=== PATIENT | female | born 1935 | race Caucasian/White ===

== ENCOUNTER 2017-04-22 10:52 | Inpatient (IN) | payer OTHER, MEDICARE ==
[~2017-04-22] VITALS: Ht 167.6 cm; Wt 89.5 kg
[~2017-04-22 10:52] MED LIST: ACET-1138 PO; AMLO-114 PO; ASPEC325 PO; BISO10TA4 PO; CALC0.2510 PO; CALCIUM PO; CHOL1000 PO; FLUO20CA37 PO; FRRG PO; LEVO75TA5 PO; LORA-741 PO; MAGNESIUM CALCIUM PO; MONT1TAB3 PO; NMN10 PO; PRLSR20 PO; ROSU5TAB PO; TRAM-10 PO; [UNRECOGNIZED DRUG - CODE] PO
[2017-04-22] MEDS ORDERED: ACETAMINOPHEN 500 MG TAB PO STA (11:10)
--- NOTE | 2017-04-22 11:13 | EMERGENCY ROOM VISIT NOTE ---
History Report prepared by William: Manny Torres Under the Supervision of: Dr. Sunny Muro M.D. First contact with patient: 10:59 Stated Complaint: GENERAL ILLNESS History of Present Illness The patient is a 81 year old female who presents to the Emergency Room with complaints of generalized weakness that began two days ago. She has a past medical history of asthma, CKD, hypertension, COPD, and GERD. She denies any history of atrial fibrillation or flutter. Over the past couple of days, the patient has been feeling generally weak. She is also experiencing a fever with a mild cough. She denies any chest pain, shortness of breath, or abdominal pain. Her family states that she seems to be mildly confused and is not quite herself. Source of History: patient Onset: two days ago Position: other (Global) Symptom Intensity: moderate Quality: other (generalized weakness) Timing: constant Associated Symptoms: + fevers, + cough, No chest pain, No SOB, No abdominal pain Review of Systems See HPI for pertinent positives & negatives. A total of 10 systems reviewed and were otherwise negative. 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 (11) Localized, primary osteoarthritis of the pelvic region and thigh Surgical Problems: (1) History of bladder surgery (2) S/P appendectomy (3) S/P cataract surgery (4) S/P laminectomy (5) S/P RAMYA (total abdominal hysterectomy) (6) S/P tonsillectomy (7) Status post hysterectomy (8) Total replacement of hip Family History Cancer FATHER BROTHER Diabetes mellitus FH: heart disease MOTHER Hypertension Social History Smoking Status: Former Smoker Alcohol Use: none Drug Use: none Marital Status: Housing Status: assisted living Occupation Status: retired Current/Historical Medications Scheduled Amlodipine (Norvasc), 2.5 MG PO DAILY Bisoprolol Fumarate (Bisoprolol Fumarate), 10 MG PO QAM Calcitriol (Rocaltrol Cap), 0.25 MCG PO DAILY Calcium Carbonate (Tums), 500 MG PO DAILY Cholecalciferol (Vitamin D3), 5,000 UNITS PO DAILY Ferrous Sulfate (Ferrous Sulfate), 325 MG PO BID Fluoxetine Hcl (Prozac), 40 MG PO QAM Levothyroxine Sodium (Levothyroxine Sodium), 1 TAB PO DAILY Magnesium Chloride-Calcium Car (Slow-Mag), 1 TAB PO DAILY Memantine (Namenda), 10 MG PO BID Montelukast Sodium (Singulair), 10 MG PO QAM Omeprazole (Prilosec), 20 MG PO QAM Rivastigmine Tartrate (Exelon), 3 MG PO BID Rosuvastatin Calcium (Crestor), 5 MG PO QPM Scheduled PRN Clonazepam (Klonopin), 0.5 MG PO BID PRN for Anxiety Allergies Coded Allergies: Latex1 -Allergic Contact Dermititis (Verified Allergy, Mild, RASH, 04/22/17 ) Donepezil (Verified Allergy, Unknown, NIGHTMARES, 04/22/17) NSAIDs (Unverified Allergy, Unknown, NOT TO TAKE DUE TO KIDNEY CHANGES, ) Physical Exam Vital Signs Date Time Temp Pulse Resp B/P (MAP) Pulse Ox O2 Delivery O2 Flow Rate FiO2 04/22/17 12:52 37.9 75 18 127/68 92 Room Air 04/22/17 11:59 38.8 80 18 157/77 92 Room Air 04/22/17 11:11 92 Room Air 04/22/17 11:05 83 04/22/17 11:04 38.2 82 18 165/78 92 Room Air Physical Exam GENERAL: Patient is a healthy-appearing well-nourished female HEAD: Normocephalic atraumatic EYES: Ocular movements intact pupils equal and react to light OROPHARYNX mucous membranes are moist no exudates present no erythema or edema present NECK: Supple no nuchal rigidity CHEST: Good equal expansion LUNGS: Clear and equal to auscultation CARDIAC: Normal S1 and S2 ABDOMEN: Soft nontender no guarding BACK: No CVA tenderness EXTREMITIES: No pain upon palpation normal muscle strength in all groups no clubbing cyanosis or edema NEURO: Patient is following commands and answering questions appropriately. Alert and oriented x3 Cranial Nerves 2-12 grossly intact Medical Decision & Procedures ER Provider Diagnostic Interpretation: Radiology results as stated below per my review and radiologist interpretation: CHEST ONE VIEW PORTABLE HISTORY: 81 years-old Female Sepsis acute sepsis COMPARISON: Chest radiograph 04/01/2016 TECHNIQUE: Portable AP view of the chest FINDINGS: Cardiomediastinal and hilar silhouettes are within normal limits. Atherosclerosis of the aorta. No pneumothorax, pleural effusion, focal airspace consolidation or overt pulmonary edema. Bones of the chest appear grossly intact. Multilevel endplate spurring of the spine. IMPRESSION: No acute process. The above report was generated using voice recognition software. It may contain grammatical, syntax or spelling errors. Electronically signed by: Sal Mcmahon M.D. 04/22/2017 12:36 PM Dictated Date/Time: 04/22/2017 12:35 PM Laboratory Results Test 04/22/17 11:16 04/22/17 11:46 04/22/17 11:53 04/22/17 11:56 Influenza Type A Antigen Neg for Influ A (NEG) Influenza Type B Antigen Neg for Influ B (NEG) Prothrombin Time 10.3 SECONDS (9.0-12.0) Prothromb Time International Ratio 1.0 (0.9-1.1) Activated Partial Thromboplast Time 31.3 SECONDS (21.0-31.0) Partial Thromboplastin Ratio 1.2 Total Bilirubin 0.6 mg/dl (0.2-1) Aspartate Amino Transf (AST/SGOT) 11 U/L (15-37) Alanine Aminotransferase (ALT/SGPT) 13 U/L (12-78) Alkaline Phosphatase 119 U/L (45-117) Total Creatine Kinase 99 U/L (26-192) Creatine Kinase MB 0.8 ng/ml (0.5-3.6) Creatine Kinase MB Ratio 0.8 (0-3.0) Troponin I < 0.015 ng/ml (0-0.045) Total Protein 7.4 gm/dl (6.4-8.2) Albumin 3.4 gm/dl (3.4-5.0) Globulin 4.0 gm/dl (2.5-4.0) Albumin/Globulin Ratio 0.9 (0.9-2) Bedside Lactic Acid Venous 1.08 mmol/L (0.90-1.70) Urine Color DK YELLOW Urine Appearance CLEAR (CLEAR) Urine pH 6.5 (4.5-7.5) Urine Specific [place] 1.024 (1.000-1.030) Urine Protein TRACE (NEG) Urine Glucose (UA) NEG (NEG) Urine Ketones TRACE (NEG) Urine Occult Blood TRACE (NEG) Urine Nitrite NEG (NEG) Urine Bilirubin NEG (NEG) Urine Urobilinogen NEG (NEG) Urine Leukocyte Esterase NEG (NEG) Urine WBC (Auto) 1-5 /hpf (0-5) Urine RBC (Auto) 5-10 /hpf (0-4) Urine Hyaline Casts (Auto) 1-5 /lpf (0-5) Urine Epithelial Cells (Auto) >30 /lpf (0-5) Urine Bacteria (Auto) NEG (NEG) Labs reviewed by ED physician. Medications Administered Medications (Trade) Dose Ordered Sig/Zunilda Route Start Time Stop Time Status Last Admin Dose Admin Acetaminophen (Tylenol Tab) 1,000 mg NOW STAT PO 04/22/17 11:10 04/22/17 11:12 DC 04/22/17 11:16 1,000 MG Cefepime HCl 2000 mg/Dextrose 122 ml @ 200 mls/hr NOW STAT IV 04/22/17 12:33 04/22/17 13:09 DC 04/22/17 13:04 200 MLS/HR Levofloxacin (Levaquin / D5W) 750 mg NOW STAT IV 04/22/17 12:33 04/22/17 12:49 DC 04/22/17 13:05 750 MG Sodium Chloride 500 ml @ 999 mls/hr Q31M STAT IV 04/22/17 12:33 04/22/17 13:03 DC 04/22/17 13:04 999 MLS/HR Oseltamivir Phosphate (Tamiflu Cap) 75 mg NOW STAT PO 04/22/17 13:05 04/22/17 13:06 DC 04/22/17 14:53 75 MG Aspirin (Aspirin Chew) 324 mg NOW STAT PO 04/22/17 13:13 04/22/17 13:14 DC 04/22/17 14:53 324 MG Acetaminophen (Tylenol Tab) 650 mg Q4H PRN PO 04/22/17 13:30 05/22/17 13:29 04/23/17 04:03 650 MG ECG Indication: weakness Rate (beats per minute): 83 Rhythm: atrial flutter, other (4 to 1 conduction) Findings: no acute ischemic change Comparison ECG Date: 02/14/16 Change: Atrial flutter is new. 2nd ECG: NSR 82, no ischemic changes or ectopy. Compared to the first ECG, her atrial flutter has resolved to normal sinus rhythm. ED Course 1059: Past medical records reviewed. The patient was evaluated in room C9. A complete history and physical examination was performed. 1110: Ordered Tylenol Tab 1000 mg PO 1233: Ordered Sodium Chloride 500 ml @ 999 mls/hr IV, Levofloxacin 750 mg IV, Cefepime HCl 2000 mg/Dextrose 122 ml @ 200 mls/hr IV 1304: Upon reexamination the patient is resting. I discussed results and treatment plan with the patient. She verbalizes agreement and understanding. I spoke with Dr. Carrizales from the [facility] Hospitalist Service. The patient will be evaluated for further management. 1305: Ordered Tamiflu Cap 75 mg PO Medical Decision Differential diagnosis: Etiologies such as metabolic, infection, hypo/hyperglycemia, electrolyte abnormalities, cardiac sources, intracerebral event, toxicologic, neurologic, as well as others were entertained. This is a 81-year-old female who presents to the emergency department complaining of altered mental status and fevers at home. In addition the patient appears to be a new onset atrial fibrillation however quickly referred back to a normal sinus rhythm. She is positive for the flu. She was given Tylenol here in the emergency department. The patient is generally weak and I do not feel will be a good candidate to be discharged home. For this reason I did discuss the case with the hospitalist service who agreed to admit the patient. Patient was in agreement with the treatment plan. Medication Reconcilliation Current Medication List: was personally reviewed by me Blood Pressure Screening Patient's blood pressure: Elevated blood pressure Referred to the hospitalist Consults Time Called: 1300 Consulting Physician: Dr. Carrizales - [facility] Hospitalist Returned Call: 1304 I discussed the patient's case with Dr. Carrizales, they have agreed to evaluate the patient for further management and care. Impression Primary Impression: Fever Additional Impressions: Altered mental status URI (upper respiratory infection) Scribe Attestation The scribe's documentation has been prepared under my direction and personally reviewed by me in its entirety. I confirm that the note above accurately reflects all work, treatment, procedures, and medical decision making performed by me. Departure Information Dispostion Being Evaluated By Hospitalist Prescriptions Cholecalciferol (VITAMIN D3) 5,000 Unit Cap 5000 UNITS PO DAILY, #30 Prov: Stefan Carrizales MD 04/22/17 Calcium Carbonate (Tums) 500 Mg Chew 500 MG PO DAILY, #30 Prov: Stefan Carrizales MD 04/22/17 Ferrous Sulfate (Ferrous Sulfate) 325 Mg Tab 325 MG PO BID, #60 Prov: Stefan Carrizales MD 04/22/17 Levothyroxine Sodium (LEVOTHYROXINE SODIUM) 75 Mcg Tab 1 TAB PO DAILY for 30 Days, #30 TAB 5 Refills Prov: Stefan Carrizales MD 04/22/17 Referrals Santi Floyd D.O. (PCP) Problem Qualifiers Primary Impression: Fever Fever type: unspecified Qualified Codes: R50.9 - Fever, unspecified Additional Impressions: Altered mental status Altered mental status type: unspecified Qualified Codes: R41.82 - Altered mental status, unspecified URI (upper respiratory infection) URI type: unspecified viral URI Qualified Codes: J06.9 - Acute upper respiratory infection, unspecified
[2017-04-22] MEDS ORDERED: AMLO-110 PO (11:52)
[2017-04-22] MEDS ORDERED: RIVA3CAP4 PO (11:52)
[2017-04-22] MEDS ORDERED: MAGNTAB17 PO (11:53)
[2017-04-22] MEDS ORDERED: CLON0.5T3 PO (11:53)
[2017-04-22 11:59] LABS: BASO % 0.3 %; BASO ABS # 0.03 K/uL (0-0.2); EOS % 0.9 %; EOS ABS # 0.09 K/uL (0-0.5); HEMATOCRIT 39.2 % (37-47); HEMOGLOBIN 12.7 g/dL (12.0-16.0); IG# 0.03 K/uL (0.00-0.02); LYMPH % 6.7 %; MEAN CORPUSCULAR HEMOGLOBIN 27.5 pg (25-34); MEAN CORPUSCULAR HGB CONC 32.4 g/dl (32-36); MEAN PLATELET VOLUME 10.2 fL (7.4-10.4); MONO ABS # 0.94 K/uL (0.11-0.59); NEUT % 82.8 %; NEUT ABS # 8.65 K/uL (1.4-6.5); PLATELET COUNT 251 K/uL (130-400); RED CELL DISTRIBUTION WIDTH CV 16.1 % (11.5-14.5); RED CELL DISTRIBUTION WIDTH SD 50.1 fL (36.4-46.3); WHITE BLOOD COUNT 10.44 K/uL (4.8-10.8)
[2017-04-22 12:08] LABS: INFLUENZA B ANTIGEN Neg for Influ B (NEG)
[2017-04-22 12:10] LABS: PTT PATIENT 31.3 SECONDS (21.0-31.0)
[2017-04-22 12:22] LABS: ALBUMIN 3.4 gm/dl (3.4-5.0); ALT/SGPT 13 U/L (12-78); AST/SGOT 11 U/L (15-37); BLOOD UREA NITROGEN 13 mg/dl (7-18); CALCIUM 9.2 mg/dl (8.5-10.1); CARBON DIOXIDE 29 mmol/L (21-32); CREATININE 1.13 mg/dl (0.60-1.20); GLUCOSE 90 mg/dl (70-99); POTASSIUM 3.8 mmol/L (3.5-5.1); SODIUM 137 mmol/L (136-145)
[2017-04-22 12:27] LABS: ALKALINE PHOSPHATASE 119 U/L (45-117); CKMB 0.8 ng/ml (0.5-3.6); TOTAL PROTEIN 7.4 gm/dl (6.4-8.2)
[2017-04-22] MEDS ORDERED: VANCOMYCIN 1GM/270ML NSS IV STA (12:33)
[2017-04-22] MEDS ORDERED: LEVAQUIN 750MG / 150ML D5W IV STA (12:33)
[2017-04-22] MEDS ORDERED: CEFEPIME IV 2,000 MG in DEXTROSE 5% 100ML 100 ML IV STA (12:33)
[2017-04-22] MEDS ORDERED: SODIUM CHLORIDE 0.9% 500ML 500 ML IV STA (12:33)
--- NOTE | 2017-04-22 12:37 | DIAGNOSTIC IMAGING REPORT ---
CHEST ONE VIEW PORTABLE HISTORY: 81 years-old Female Sepsis acute sepsis COMPARISON: Chest radiograph 04/01/2016 TECHNIQUE: Portable AP view of the chest FINDINGS: Cardiomediastinal and hilar silhouettes are within normal limits. Atherosclerosis of the aorta. No pneumothorax, pleural effusion, focal airspace consolidation or overt pulmonary edema. Bones of the chest appear grossly intact. Multilevel endplate spurring of the spine. IMPRESSION: No acute process. The above report was generated using voice recognition software. It may contain grammatical, syntax or spelling errors. Electronically signed by: Sal Mcmahon M.D. 04/22/2017 12:36 PM Dictated Date/Time: 04/22/2017 12:35 PM
[2017-04-22] MEDS ORDERED: OSELTAMIVIR PHOSPHATE 75 MG CAP PO STA (13:05)
[2017-04-22] MEDS ORDERED: ASPIRIN 81 MG CHEW PO STA (13:13)
[2017-04-22] MEDS ORDERED: ALUMINUM/MAGNESIUM/SIMETH (MAALOX MAX) 30 ML UDC PO PRN (13:30)
[2017-04-22] MEDS ORDERED: CLONAZEPAM 0.5 MG TAB PO PRN (13:30)
[2017-04-22] MEDS ORDERED: ACETAMINOPHEN 325 MG TAB PO PRN (13:30)
[2017-04-22] MEDS ORDERED: ONDANSETRON INJ 2 MG/ML 2 ML VIAL IV PRN (13:30)
[2017-04-22] MEDS ORDERED: LEVALBUTEROL/IPRATROPIUM NEB INH PRN (13:30)
[2017-04-22] MEDS ORDERED: POLYETHYLENE (MIRALAX) 17 GM PACK PO PRN (13:30)
[2017-04-22] MEDS ORDERED: NITROGLYCERIN 0.4 MG SL PER TAB CHARGE SL PRN (13:30)
[2017-04-22] MEDS ORDERED: FRRS300 PO (13:47)
[2017-04-22] MEDS ORDERED: CHOLCAP5 PO (13:47)
[2017-04-22] MEDS ORDERED: LEVO75TA5 PO (13:47)
[2017-04-22] MEDS ORDERED: CALC500C3 PO (13:47)
[2017-04-22] MEDS ORDERED: IPRATROPIUM BROMIDE NEB SOLN 0.02% 2.5 ML VIAL INH PRN (15:15)
[2017-04-22] MEDS ORDERED: LEVALBUTEROL 1.25MG/0.5ML NEB INH PRN (15:15)
[2017-04-22] MEDS ORDERED: VANCOMYCIN 1GM/270ML NSS ONE (15:16)
[2017-04-22 15:36] VITALS: BP 157/77; PULSE 72; TEMP 37.1; O2SAT 97; Ht 167.6 cm; Wt 89.5 kg
[2017-04-22] MEDS ORDERED: LEVOFLOXACIN CONSULT ACTIVE PRN (16:00)
--- NOTE | 2017-04-22 16:41 | HISTORY & PHYSICAL EXAMINATION ---
DATE OF ADMISSION: 04/22/2017 CHIEF COMPLAINT: Not feeling well, fever and cough. HISTORY OF PRESENT ILLNESS: This 81-year-old female with a past medical history significant for hypothyroidism, restless legs syndrome, COPD, dementia, anxiety, chronic kidney disease stage III, generalized osteoarthritis, hypertension, GERD, hyperlipidemia, and hyperparathyroidism due to renal insufficiency, presents with fever starting last night. The patient says since last night not feeling well, generalized body aches and had fever spike and was having dry cough. In the ER, she has episode of vomiting. Denies any shortness of breath, has some headaches. Denies dizziness, no blurred vision, no abdominal pain. Normal bowel and bladder movements. Appetite is not good since yesterday. No swelling in the legs. No rash. The patient says she is up-to-date with her flu shot. Currently resting comfortably and hemodynamically stable. ALLERGIES: ARICEPT AND NSAIDs, Latex PAST MEDICAL HISTORY: As mentioned above. PAST SURGICAL HISTORY: Biopsy of the left breast, EGD with biopsy, exploration of the abdomen for adnexal mass, single lumbar laminectomy, ligation of oviducts, appendectomy, left cataract surgery, tonsillectomy, adenoidectomy, repair of bladder and ureters, sacroiliac joint injection, total abdominal hysterectomy without removal of tubes, and total hip replacements bilateral. MEDICATIONS: The patient currently on Crestor 5 mg p.o. daily in the evening, Prozac 40 mg p.o. daily, omeprazole 20 mg p.o. daily, Klonopin 0.5 mg p.o. b.i.d. p.r.n., Namenda 10 mg p.o. b.i.d., levothyroxine 75 mcg p.o. daily, calcitriol 0.25 mcg p.o. daily, Singulair 10 mg p.o. daily, bisoprolol 10 mg p.o. daily, Exelon 3 mg p.o. b.i.d., amlodipine 2.5 mg p.o. daily, ferrous sulfate 325 mg p.o. b.i.d., calcium carbonate 600 mg p.o. daily, magnesium chloride 64 mg p.o. daily, and vitamin D 5000 units p.o. daily. FAMILY HISTORY: Significant for father had liver cancer. Mother of [place] at age of 77. Brother had leukemia. SOCIAL HISTORY: Former smoker, quit in 1997, smoked 1 pack a day for 20 years. No alcohol use. No drug use. Currently lives with her . REVIEW OF SYMPTOMS: As per HPI. Rest of review of symptoms negative. PHYSICAL EXAMINATION: GENERAL: The patient is of moderate-built, not in distress. VITAL SIGNS: Temperature T-max 38.8, pulse 75, respiratory rate 18, blood pressure 127/68, and oxygen 92% room air. HEENT: No pallor. No icterus. Pupils equal, round and reactive to light. NECK: No JVD, no neck masses, and no carotid bruits. CARDIOVASCULAR: S1 and S2 heard. Regular rate and rhythm. No murmur. No gallop. RESPIRATORY: Normal AP diameter. No accessory muscle use. Occasional rhonchi heard in the right lower lobe. No wheezing. ABDOMEN: Soft. Bowel sounds present. Nontender. No distention. CENTRAL NERVOUS SYSTEM: Cranial nerves II-XII grossly intact. Nonfocal. EXTREMITIES: No edema. No erythema. LABORATORY DATA: WBC 10.4, hemoglobin 12.7, hematocrit 10.2, and platelets 251. Sodium 137, potassium 3.8, chloride 102, bicarb 29, BUN 13, and creatinine 1.13. Serum glucose 90. Point of care lactic acid 1.08. Calcium 9.2, total bilirubin 0.6, AST 11, ALT 13, and alkaline phosphatase 119. Troponin I less than 0.015. PT 10.3, INR 1, and PTT 31.3. Urinalysis negative for nitrite, leukocyte esterase, or bacteria. Influenza type A and B initial test negative. Chest x-ray: No acute process seen. EKG shows normal sinus rhythm with rate of [address] changes seen. ASSESSMENT AND PLAN: This is a 81-year-old female who presents with acute onset of fever, cough and generalized weakness. 1. Fever, cough, generalized weakness and episode of vomiting, most likely flu. Initial flu test is negative. Chest x-ray unremarkable. Urinalysis negative. We will follow the blood cultures. In the ER, the patient empirically received cefepime, Levaquin, vancomycin and Tamiflu. We will continue Tamiflu and Levaquin and follow the cultures and place on gentle fluids and follow the response. 2. History of chronic obstructive pulmonary disease and asthma, not on inhalers at home. Continue Singulair. The patient does not seem to be in any exacerbation. We will place her on Combivent scheduled dose and nebs p.r.n. and monitor. 3. Chronic kidney disease stage III, seems to be baseline. We will follow the labs. 4. History of hypertension. Continue bisoprolol and amlodipine, and follow the blood pressure. 5. History of dementia. Continue Namenda and Exelon. 6. Depression and anxiety. Continue Prozac and Klonopin p.r.n. 7. Gastroesophageal reflux disease. Continue Prilosec. 8. Hyperlipidemia. Continue Crestor. 9. Deep venous thrombosis prophylaxis. SCDs and Lovenox. DISPOSITION: Admit to tele floor. Expect to discharge home and follow with family doctor. Level 1 full code. PT/OT prior to discharge. MTDD
[2017-04-22] MEDS: SODIUM CHLORIDE 0.9% 1000ML 1,000 ML IV SCH (16:45)
[2017-04-22] MEDS: IPRATROPIUM BROMIDE/ALBUTEROL respimat INH INH SCH ×2 (17:42→20:39)
[2017-04-22 20:29] VITALS: BP 139/79; PULSE 80; TEMP 37.4; O2SAT 97
[2017-04-22] MEDS: ROSUVASTATIN CALCIUM 10 MG TAB PO SCH (20:40)
[2017-04-22] MEDS: RIVASTIGMINE TARTRATE (EXELON) 1.5 MG CAP PO SCH (20:40)
[2017-04-22] MEDS: FERROUS SULFATE 325 MG TAB PO SCH (20:41)
[2017-04-22] MEDS: MEMANTINE 10 MG TAB PO SCH (20:41)
[2017-04-22] MEDS: OSELTAMIVIR PHOSPHATE 75 MG CAP PO SCH (20:41)
[2017-04-22] MEDS: ENOXAPARIN 40 MG/0.4 ML SYR SC SCH (20:42)
[2017-04-22 23:46] VITALS: BP 166/75; PULSE 87; TEMP 37.6; O2SAT 95
[2017-04-23] VITALS (13 sets, daily range): BP systolic 98–169; BP diastolic 60–92; PULSE 69–100; TEMP 36.8–38.5; O2SAT 22–96
[2017-04-23] MEDS: SODIUM CHLORIDE 0.9% 1000ML 1,000 ML IV SCH ×2 (04:03→17:11)
[2017-04-23] MEDS: LEVOTHYROXINE 75 MCG TAB PO SCH (06:06)
[2017-04-23 06:14] LABS: BASO % 0.4 %; BASO ABS # 0.03 K/uL (0-0.2); EOS % 0.5 %; EOS ABS # 0.04 K/uL (0-0.5); HEMATOCRIT 37.3 % (37-47); IG# 0.02 K/uL (0.00-0.02); LYMPH % 12.4 %; LYMPH ABS # 0.91 K/uL (1.2-3.4); MEAN CELL VOLUME 84.6 fL (80-100); MEAN CORPUSCULAR HEMOGLOBIN 27.2 pg (25-34); MEAN CORPUSCULAR HGB CONC 32.2 g/dl (32-36); MONO % 9.8 %; MONO ABS # 0.72 K/uL (0.11-0.59); NEUT % 76.6 %; NEUT ABS # 5.59 K/uL (1.4-6.5); PLATELET COUNT 220 K/uL (130-400); RED CELL DISTRIBUTION WIDTH CV 16.2 % (11.5-14.5); RED CELL DISTRIBUTION WIDTH SD 49.7 fL (36.4-46.3); WHITE BLOOD COUNT 7.31 K/uL (4.8-10.8)
[2017-04-23 06:46] LABS: CALCIUM 8.9 mg/dl (8.5-10.1); CREATININE 0.95 mg/dl (0.60-1.20); POTASSIUM 3.5 mmol/L (3.5-5.1)
[2017-04-23] MEDS: RIVASTIGMINE TARTRATE (EXELON) 1.5 MG CAP PO SCH ×2 (07:45→20:25)
[2017-04-23] MEDS: MEMANTINE 10 MG TAB PO SCH ×2 (07:45→20:24)
[2017-04-23] MEDS: FERROUS SULFATE 325 MG TAB PO SCH ×2 (07:45→20:24)
[2017-04-23] MEDS: PANTOprazole SOD 40 MG TAB PO SCH (07:45)
[2017-04-23] MEDS: FLUOXETINE HCL 20 MG CAP PO SCH (07:45)
[2017-04-23] MEDS: MONTELUKAST SOD 10 MG TAB PO SCH (07:46)
[2017-04-23] MEDS: AMLODIPINE BESYLATE 5 MG TAB PO SCH (07:46)
[2017-04-23] MEDS: MAGNESIUM CHLORIDE 64MG DELAYED REL TAB PO SCH (07:46)
[2017-04-23] MEDS: BISOPROLOL FUMARATE 10 MG TAB PO SCH (07:46)
[2017-04-23] MEDS: CHOLECALCIFEROL 1000 INTER.UNIT TAB PO SCH (07:46)
[2017-04-23] MEDS: CALCITRIOL 0.25 MCG CAP PO SCH (07:46)
[2017-04-23] MEDS: CALCIUM CARBONATE 500 MG CHEWABLE PO SCH (07:47)
[2017-04-23] MEDS: IPRATROPIUM BROMIDE/ALBUTEROL respimat INH INH SCH ×4 (07:47→20:21)
[2017-04-23] MEDS: OSELTAMIVIR PHOSPHATE 75 MG CAP PO SCH ×2 (09:58→20:22)
[2017-04-23] MEDS ORDERED: LEVOFLOXACIN 750MG / D5W IV SCH (14:00)
--- NOTE | 2017-04-23 19:50 | Progress Note ---
Medicine Progress Note Date & Time of Visit: Apr 23, 2017 at 19:50 . Subjective CC: Follow-up visit for fever and cough. HPI: No fever since admission. Persistent cough and mild dyspnea. Cough nonproductive. No chest pain. Feels somewhat confused. ROS: General- no fever, no chills Resp- as noted above in HPI Cardiac- no chest pain, no edema GI- no nausea, no vomiting, no diarrhea - no dysuria, no difficulty voiding . Objective Last 8 Hrs Date Time Temp Pulse Resp B/P (MAP) Pulse Ox O2 Delivery O2 Flow Rate FiO2 04/23/17 17:13 80 133/70 (91) 04/23/17 16:25 71 18 95 Room Air 04/23/17 16:19 37.0 71 22 169/85 (113) 95 Room Air 04/23/17 16:00 95 Room Air 1.0 04/23/17 12:00 Nasal Cannula 1.0 04/23/17 11:53 37.4 69 18 134/69 (90) 95 Physical Exam: General- lying in bed; no acute distress Lungs- scattered rhonchi, diffuse wheezing, no respiratory distress Cardiovascular- RRR, no gallop appreciated, no JVD, no pretibial edema Abdomen- + BS, soft, nontender Extremities- no cyanosis; no calf tenderness Neuro- alert, mild confusion Skin- warm & dry . Laboratory Results: Last 24 Hours Test 04/23/17 05:57 White Blood Count 7.31 K/uL Red Blood Count 4.41 M/uL Hemoglobin 12.0 g/dL Hematocrit 37.3 % Mean Corpuscular Volume 84.6 fL Mean Corpuscular Hemoglobin 27.2 pg Mean Corpuscular Hemoglobin Concent 32.2 g/dl Platelet Count 220 K/uL Mean Platelet Volume 10.0 fL Neutrophils (%) (Auto) 76.6 % Lymphocytes (%) (Auto) 12.4 % Monocytes (%) (Auto) 9.8 % Eosinophils (%) (Auto) 0.5 % Basophils (%) (Auto) 0.4 % Neutrophils # (Auto) 5.59 K/uL Lymphocytes # (Auto) 0.91 K/uL Monocytes # (Auto) 0.72 K/uL Eosinophils # (Auto) 0.04 K/uL Basophils # (Auto) 0.03 K/uL RDW Standard Deviation 49.7 fL RDW Coefficient of Variation 16.2 % Immature Granulocyte % (Auto) 0.3 % Immature Granulocyte # (Auto) 0.02 K/uL Sodium Level 137 mmol/L Potassium Level 3.5 mmol/L Chloride Level 103 mmol/L Carbon Dioxide Level 24 mmol/L Anion Gap 9.0 mmol/L Blood Urea Nitrogen 15 mg/dl Creatinine 0.95 mg/dl Est Creatinine Clear Calc Drug Dose 54.1 ml/min Estimated GFR () 66.0 Estimated GFR (Non- 57.0 BUN/Creatinine Ratio 15.5 Random Glucose 103 mg/dl Calcium Level 8.9 mg/dl Magnesium Level 2.0 mg/dl Assessment & Plan FEVER / COUGH No infiltrates on chest x-ray. Rapid influenza Ag negative, but assay has low sensitivity. Treating for possible influenza with oseltamivir. EXACERBATION COPD Secondary to lower respiratory tract infection. Continue nebs. Consider adding steroids. HYPERTENSION Continue bisoprolol and amlodipine. CKD Follow. GERD Continue PPI. DEMENTIA Continue memantine and rivastigmine. VTE PROPHYLAXIS SQ enoxaparin. Ambulate. DISPOSITION Expected discharge to home. Family Medicine follow-up with Dr. Flynn. . Current Inpatient Medications: Current Inpatient Medications Medications (Trade) Dose Ordered Sig/Zunilda Route Start Time Stop Time Status Last Admin Dose Admin Enoxaparin Sodium (Lovenox Inj) 40 mg HS SC 04/22/17 21:00 05/22/17 20:59 04/22/17 20:42 40 MG Acetaminophen (Tylenol Tab) 650 mg Q4H PRN PO 04/22/17 13:30 05/22/17 13:29 04/23/17 04:03 650 MG Al Hydrox/Mg Hydrox/Simethicone (Maalox Max Susp) 15 ml Q4H PRN PO 04/22/17 13:30 05/22/17 13:29 Ondansetron HCl (Zofran Inj) 4 mg Q6H PRN IV 04/22/17 13:30 05/22/17 13:29 Nitroglycerin (Nitrostat Tab) 0.4 mg UD PRN SL 04/22/17 13:30 05/22/17 13:29 Polyethylene (Miralax Powder Packet) 17 gm DAILY PRN PO 04/22/17 13:30 05/22/17 13:29 04/23/17 15:50 17 GM Amlodipine Besylate (Norvasc Tab) 2.5 mg DAILY PO 04/23/17 09:00 05/23/17 08:59 04/23/17 07:46 2.5 MG Calcitriol (Rocaltrol Cap) 0.25 mcg DAILY PO 04/23/17 09:00 05/23/17 08:59 04/23/17 07:46 0.25 MCG Clonazepam (Klonopin Tab) 0.5 mg BID PRN PO 04/22/17 13:30 05/22/17 13:29 Fluoxetine HCl (Prozac Cap) 40 mg QAM PO 04/23/17 09:00 05/23/17 08:59 04/23/17 07:45 40 MG Memantine (Namenda Tab) 10 mg BID PO 04/22/17 21:00 05/22/17 20:59 04/23/17 07:45 10 MG Montelukast Sodium (Singulair Tab) 10 mg QAM PO 04/23/17 09:00 05/23/17 08:59 04/23/17 07:46 10 MG Rosuvastatin Calcium (Crestor Tab) 5 mg QPM PO 04/22/17 21:00 05/22/17 20:59 04/22/17 20:40 5 MG Bisoprolol Fumarate (Bisoprolol Fumarate) 10 mg QAM PO 04/23/17 09:00 05/23/17 08:59 04/23/17 07:46 10 MG Magnesium Chloride (Slow-Mag Tab) 64 mg DAILY PO 04/23/17 09:00 05/23/17 08:59 04/23/17 07:46 64 MG Pantoprazole Sodium (Protonix Tab) 40 mg QAM PO 04/23/17 09:00 05/23/17 08:59 04/23/17 07:45 40 MG Rivastigmine Tartrate (Exelon Cap) 3 mg BID PO 04/22/17 21:00 05/22/17 20:59 04/23/17 07:45 3 MG Oseltamivir Phosphate (Tamiflu Cap) 75 mg BID PO 04/22/17 21:00 04/27/17 20:59 04/23/17 09:58 75 MG Albuterol/ Ipratropium (Combivent Respimat Inh) 1 puffs QID INH 04/22/17 17:00 05/22/17 16:59 04/23/17 17:11 1 PUFFS Sodium Chloride 1,000 ml @ 80 mls/hr [id number] IV 04/22/17 16:00 05/22/17 15:59 04/23/17 17:11 80 MLS/HR Calcium Carbonate (Tums Chew Tab) 500 mg DAILY PO 04/23/17 09:00 05/23/17 08:59 04/23/17 07:47 500 MG Ferrous Sulfate (Feosol Tab) 325 mg BID PO 04/22/17 21:00 05/22/17 20:59 04/23/17 07:45 325 MG Levothyroxine Sodium (Synthroid Tab) 75 mcg DAILYBB PO 04/23/17 06:00 05/23/17 06:59 04/23/17 06:06 75 MCG Cholecalciferol (Vitamin D Tab) 5,000 inter.unit DAILY PO 04/23/17 09:00 05/23/17 08:59 04/23/17 07:46 5,000 INTER.UNIT Ipratropium [place] (Atrovent 0.02% 0.5MG/2.5ML Neb) 0.5 mg Q4H PRN INH 04/22/17 15:15 05/22/17 15:14 04/23/17 16:24 0.5 MG Levalbuterol (Xopenex 1.25MG/ 0.5ML Neb) 1.25 mg Q4H PRN INH 04/22/17 15:15 05/22/17 15:14 04/23/17 16:24 1.25 MG Levofloxacin (Consult) 1 ea UD PRN N/A 04/22/17 16:00 05/22/17 15:59 Levofloxacin 750 mg/Prmx 150 ml @ 100 mls/hr Q24H IV 04/23/17 14:00 04/29/17 13:59 04/23/17 14:37 100 MLS/HR
[2017-04-23] MEDS: ENOXAPARIN 40 MG/0.4 ML SYR SC SCH (20:23)
[2017-04-23] MEDS: ROSUVASTATIN CALCIUM 10 MG TAB PO SCH (20:23)
[2017-04-24] MEDS: LEVOTHYROXINE 75 MCG TAB PO SCH (06:06)
[2017-04-24] MEDS: SODIUM CHLORIDE 0.9% 1000ML 1,000 ML IV SCH ×2 (06:07→17:39)
[2017-04-24 06:52] VITALS: BP 178/80; PULSE 72; TEMP 37.3; O2SAT 91
[2017-04-24 07:27] LABS: BASO % 0.5 %; BASO ABS # 0.04 K/uL (0-0.2); EOS % 1.7 %; EOS ABS # 0.14 K/uL (0-0.5); HEMOGLOBIN 13.3 g/dL (12.0-16.0); IG# 0.02 K/uL (0.00-0.02); LYMPH % 17.6 %; LYMPH ABS # 1.45 K/uL (1.2-3.4); MEAN CELL VOLUME 86.1 fL (80-100); MEAN CORPUSCULAR HEMOGLOBIN 27.3 pg (25-34); MEAN CORPUSCULAR HGB CONC 31.7 g/dl (32-36); MEAN PLATELET VOLUME 10.4 fL (7.4-10.4); MONO % 13.4 %; MONO ABS # 1.11 K/uL (0.11-0.59); NEUT % 66.6 %; PLATELET COUNT 207 K/uL (130-400); RED CELL DISTRIBUTION WIDTH CV 16.2 % (11.5-14.5); RED CELL DISTRIBUTION WIDTH SD 51.5 fL (36.4-46.3); WHITE BLOOD COUNT 8.26 K/uL (4.8-10.8)
[2017-04-24 07:43] VITALS: BP 157/82; PULSE 77
[2017-04-24] MEDS: IPRATROPIUM BROMIDE/ALBUTEROL respimat INH INH SCH ×4 (07:44→20:51)
[2017-04-24] MEDS: CHOLECALCIFEROL 1000 INTER.UNIT TAB PO SCH (07:44)
[2017-04-24] MEDS: RIVASTIGMINE TARTRATE (EXELON) 1.5 MG CAP PO SCH ×2 (07:45→20:55)
[2017-04-24] MEDS: MAGNESIUM CHLORIDE 64MG DELAYED REL TAB PO SCH (07:45)
[2017-04-24] MEDS: MONTELUKAST SOD 10 MG TAB PO SCH (07:46)
[2017-04-24] MEDS: BISOPROLOL FUMARATE 10 MG TAB PO SCH (07:46)
[2017-04-24] MEDS: CALCIUM CARBONATE 500 MG CHEWABLE PO SCH (07:46)
[2017-04-24] MEDS: AMLODIPINE BESYLATE 5 MG TAB PO SCH (07:46)
[2017-04-24] MEDS: PANTOprazole SOD 40 MG TAB PO SCH (07:47)
[2017-04-24] MEDS: OSELTAMIVIR PHOSPHATE 75 MG CAP PO SCH ×2 (07:47→20:56)
[2017-04-24] MEDS: CALCITRIOL 0.25 MCG CAP PO SCH (07:47)
[2017-04-24] MEDS: FERROUS SULFATE 325 MG TAB PO SCH ×2 (07:48→20:55)
[2017-04-24] MEDS: MEMANTINE 10 MG TAB PO SCH ×2 (07:48→20:56)
[2017-04-24] MEDS: FLUOXETINE HCL 20 MG CAP PO SCH (07:48)
[2017-04-24 07:58] LABS: CALCIUM 9.4 mg/dl (8.5-10.1); CREATININE 0.95 mg/dl (0.60-1.20); POTASSIUM 3.5 mmol/L (3.5-5.1)
[2017-04-24] MEDS ORDERED: LEVOFLOXACIN / D5W 750 MG in PREMIXED IN D5W 150 ML IV SCH (12:00)
[2017-04-24 15:29] VITALS: BP 132/80; PULSE 83; TEMP 37.4; O2SAT 91
--- NOTE | 2017-04-24 20:00 | Progress Note ---
Medicine Progress Note Date & Time of Visit: Apr 24, 2017 at 19:30 . Subjective CC: Follow-up visit for suspected flu. HPI: Afebrile. Persistent nonproductive cough. No SOB. Feels disoriented ROS: General- no fever, no chills Resp- as noted above in HPI Cardiac- no chest pain, no edema GI- no nausea, no vomiting, no diarrhea - no dysuria, no difficulty voiding . Objective Last 8 Hrs Date Time Temp Pulse Resp B/P (MAP) Pulse Ox O2 Delivery O2 Flow Rate FiO2 04/24/17 16:00 Room Air 04/24/17 15:29 37.4 83 16 132/80 (97) 91 Room Air Physical Exam: General- lying in bed; no acute distress Lungs- scattered rhonchi, diffuse moderate wheezing, no respiratory distress Cardiovascular- RRR, no gallop appreciated, no JVD, no pretibial edema Abdomen- + BS, soft, nontender Extremities- no cyanosis; no calf tenderness Neuro- alert, mild confusion (oriented to person and place, unable to state day of week or year) Skin- warm & dry . Laboratory Results: Last 24 Hours Test 04/24/17 07:03 White Blood Count 8.26 K/uL Red Blood Count 4.88 M/uL Hemoglobin 13.3 g/dL Hematocrit 42.0 % Mean Corpuscular Volume 86.1 fL Mean Corpuscular Hemoglobin 27.3 pg Mean Corpuscular Hemoglobin Concent 31.7 g/dl Platelet Count 207 K/uL Mean Platelet Volume 10.4 fL Neutrophils (%) (Auto) 66.6 % Lymphocytes (%) (Auto) 17.6 % Monocytes (%) (Auto) 13.4 % Eosinophils (%) (Auto) 1.7 % Basophils (%) (Auto) 0.5 % Neutrophils # (Auto) 5.50 K/uL Lymphocytes # (Auto) 1.45 K/uL Monocytes # (Auto) 1.11 K/uL Eosinophils # (Auto) 0.14 K/uL Basophils # (Auto) 0.04 K/uL RDW Standard Deviation 51.5 fL RDW Coefficient of Variation 16.2 % Immature Granulocyte % (Auto) 0.2 % Immature Granulocyte # (Auto) 0.02 K/uL Sodium Level 139 mmol/L Potassium Level 3.5 mmol/L Chloride Level 103 mmol/L Carbon Dioxide Level 26 mmol/L Anion Gap 10.0 mmol/L Blood Urea Nitrogen 15 mg/dl Creatinine 0.95 mg/dl Est Creatinine Clear Calc Drug Dose 54.1 ml/min Estimated GFR () 66.0 Estimated GFR (Non- 57.0 BUN/Creatinine Ratio 16.1 Random Glucose 81 mg/dl Calcium Level 9.4 mg/dl Magnesium Level 1.9 mg/dl Assessment & Plan FEVER / COUGH No infiltrates on chest x-ray. Rapid influenza Ag negative, but assay has low sensitivity. Treating for possible influenza with oseltamivir. No apparent indication for other antimicrobial meds at this time. EXACERBATION COPD Secondary to lower respiratory tract infection. Continue nebs. Consider adding steroids. HYPERTENSION Continue bisoprolol and amlodipine. CKD Follow. GERD Continue PPI. DEMENTIA Continue memantine and rivastigmine. VTE PROPHYLAXIS SQ enoxaparin. Ambulate. DISPOSITION Expected discharge to home. Family Medicine follow-up with Dr. Flynn. . Current Inpatient Medications: Current Inpatient Medications Medications (Trade) Dose Ordered Sig/Zunilda Route Start Time Stop Time Status Last Admin Dose Admin Enoxaparin Sodium (Lovenox Inj) 40 mg HS SC 04/22/17 21:00 05/22/17 20:59 04/23/17 20:23 40 MG Acetaminophen (Tylenol Tab) 650 mg Q4H PRN PO 04/22/17 13:30 05/22/17 13:29 04/23/17 04:03 650 MG Al Hydrox/Mg Hydrox/Simethicone (Maalox Max Susp) 15 ml Q4H PRN PO 04/22/17 13:30 05/22/17 13:29 Ondansetron HCl (Zofran Inj) 4 mg Q6H PRN IV 04/22/17 13:30 05/22/17 13:29 Nitroglycerin (Nitrostat Tab) 0.4 mg UD PRN SL 04/22/17 13:30 05/22/17 13:29 Polyethylene (Miralax Powder Packet) 17 gm DAILY PRN PO 04/22/17 13:30 05/22/17 13:29 04/23/17 15:50 17 GM Amlodipine Besylate (Norvasc Tab) 2.5 mg DAILY PO 04/23/17 09:00 05/23/17 08:59 04/24/17 07:46 2.5 MG Calcitriol (Rocaltrol Cap) 0.25 mcg DAILY PO 04/23/17 09:00 05/23/17 08:59 04/24/17 07:47 0.25 MCG Clonazepam (Klonopin Tab) 0.5 mg BID PRN PO 04/22/17 13:30 05/22/17 13:29 04/23/17 23:24 0.5 MG Fluoxetine HCl (Prozac Cap) 40 mg QAM PO 04/23/17 09:00 05/23/17 08:59 04/24/17 07:48 40 MG Memantine (Namenda Tab) 10 mg BID PO 04/22/17 21:00 05/22/17 20:59 04/24/17 07:48 10 MG Montelukast Sodium (Singulair Tab) 10 mg QAM PO 04/23/17 09:00 05/23/17 08:59 04/24/17 07:46 10 MG Rosuvastatin Calcium (Crestor Tab) 5 mg QPM PO 04/22/17 21:00 05/22/17 20:59 04/23/17 20:23 5 MG Bisoprolol Fumarate (Bisoprolol Fumarate) 10 mg QAM PO 04/23/17 09:00 05/23/17 08:59 04/24/17 07:46 10 MG Magnesium Chloride (Slow-Mag Tab) 64 mg DAILY PO 04/23/17 09:00 05/23/17 08:59 04/24/17 07:45 64 MG Pantoprazole Sodium (Protonix Tab) 40 mg QAM PO 04/23/17 09:00 05/23/17 08:59 04/24/17 07:47 40 MG Rivastigmine Tartrate (Exelon Cap) 3 mg BID PO 04/22/17 21:00 05/22/17 20:59 04/24/17 07:45 3 MG Oseltamivir Phosphate (Tamiflu Cap) 75 mg BID PO 04/22/17 21:00 04/27/17 20:59 04/24/17 07:47 75 MG Albuterol/ Ipratropium (Combivent Respimat Inh) 1 puffs QID INH 04/22/17 17:00 05/22/17 16:59 1/18/18 16:55 1 PUFFS Sodium Chloride 1,000 ml @ 80 mls/hr [id number] IV 04/22/17 16:00 05/22/17 15:59 04/24/17 17:39 80 MLS/HR Calcium Carbonate (Tums Chew Tab) 500 mg DAILY PO 04/23/17 09:00 05/23/17 08:59 04/24/17 07:46 500 MG Ferrous Sulfate (Feosol Tab) 325 mg BID PO 04/22/17 21:00 05/22/17 20:59 04/24/17 07:48 325 MG Levothyroxine Sodium (Synthroid Tab) 75 mcg DAILYBB PO 04/23/17 06:00 05/23/17 06:59 04/24/17 06:06 75 MCG Cholecalciferol (Vitamin D Tab) 5,000 inter.unit DAILY PO 04/23/17 09:00 05/23/17 08:59 04/24/17 07:44 5,000 INTER.UNIT Ipratropium [place] (Atrovent 0.02% 0.5MG/2.5ML Neb) 0.5 mg Q4H PRN INH 04/22/17 15:15 05/22/17 15:14 04/23/17 16:24 0.5 MG Levalbuterol (Xopenex 1.25MG/ 0.5ML Neb) 1.25 mg Q4H PRN INH 04/22/17 15:15 05/22/17 15:14 04/23/17 16:24 1.25 MG
[2017-04-24] MEDS: ROSUVASTATIN CALCIUM 10 MG TAB PO SCH (20:52)
[2017-04-24] MEDS: ENOXAPARIN 40 MG/0.4 ML SYR SC SCH (20:52)
[2017-04-24 23:44] VITALS: BP 135/80; PULSE 80; TEMP 37.1; O2SAT 93
[2017-04-25] MEDS: LEVOTHYROXINE 75 MCG TAB PO SCH (06:01)
[2017-04-25 07:23] VITALS: BP 139/76; PULSE 70; TEMP 36.8; O2SAT 90
[2017-04-25 07:42] LABS: BASO % 0.3 %; BASO ABS # 0.02 K/uL (0-0.2); EOS % 1.7 %; HEMATOCRIT 37.1 % (37-47); HEMOGLOBIN 11.9 g/dL (12.0-16.0); IG# 0.01 K/uL (0.00-0.02); LYMPH % 27.7 %; LYMPH ABS # 1.64 K/uL (1.2-3.4); MEAN CELL VOLUME 85.5 fL (80-100); MEAN CORPUSCULAR HEMOGLOBIN 27.4 pg (25-34); MEAN CORPUSCULAR HGB CONC 32.1 g/dl (32-36); MEAN PLATELET VOLUME 10.6 fL (7.4-10.4); MONO ABS # 0.77 K/uL (0.11-0.59); NEUT % 57.1 %; NEUT ABS # 3.37 K/uL (1.4-6.5); PLATELET COUNT 215 K/uL (130-400); RED CELL DISTRIBUTION WIDTH CV 16.1 % (11.5-14.5); RED CELL DISTRIBUTION WIDTH SD 51.1 fL (36.4-46.3); WHITE BLOOD COUNT 5.91 K/uL (4.8-10.8)
[2017-04-25 08:04] VITALS: BP 128/77; PULSE 69
[2017-04-25] MEDS: CHOLECALCIFEROL 1000 INTER.UNIT TAB PO SCH (08:05)
[2017-04-25] MEDS: IPRATROPIUM BROMIDE/ALBUTEROL respimat INH INH SCH ×2 (08:05→12:48)
[2017-04-25] MEDS: RIVASTIGMINE TARTRATE (EXELON) 1.5 MG CAP PO SCH (08:05)
[2017-04-25] MEDS: FERROUS SULFATE 325 MG TAB PO SCH (08:05)
[2017-04-25 08:06] LABS: CALCIUM 8.9 mg/dl (8.5-10.1); CREATININE 0.8 mg/dl (0.60-1.20); POTASSIUM 3.5 mmol/L (3.5-5.1)
[2017-04-25] MEDS: MONTELUKAST SOD 10 MG TAB PO SCH (08:06)
[2017-04-25] MEDS: OSELTAMIVIR PHOSPHATE 75 MG CAP PO SCH (08:06)
[2017-04-25] MEDS: CALCIUM CARBONATE 500 MG CHEWABLE PO SCH (08:07)
[2017-04-25] MEDS: AMLODIPINE BESYLATE 5 MG TAB PO SCH (08:07)
[2017-04-25] MEDS: FLUOXETINE HCL 20 MG CAP PO SCH (08:07)
[2017-04-25] MEDS: PANTOprazole SOD 40 MG TAB PO SCH (08:08)
[2017-04-25] MEDS: BISOPROLOL FUMARATE 10 MG TAB PO SCH (08:08)
[2017-04-25] MEDS: CALCITRIOL 0.25 MCG CAP PO SCH (08:08)
[2017-04-25] MEDS: MEMANTINE 10 MG TAB PO SCH (08:09)
[2017-04-25] MEDS: MAGNESIUM CHLORIDE 64MG DELAYED REL TAB PO SCH (08:09)
--- NOTE | 2017-04-25 14:12 | Progress Note ---
Medicine Progress Note Date & Time of Visit: Apr 25, 2017 at 14:12 . Subjective Feels better. Cough improved. No fever. No SOB. No nausea, vomiting, diarrhea. Daughters visiting. They feel comfortable caring for her at home and assisting with transfers and ambulation. . Objective Last 8 Hrs Date Time Temp Pulse Resp B/P (MAP) Pulse Ox O2 Delivery O2 Flow Rate FiO2 04/25/17 08:04 69 128/77 (94) 04/25/17 08:00 Room Air 04/25/17 07:23 36.8 70 18 139/76 (97) 90 Room Air Physical Exam: General- sitting in chair; no distress Lungs- few scattered rhonchi, diffuse mild-mod wheezing, no respiratory distress Cardiovascular- RRR, no gallop appreciated, no JVD, no pretibial edema Abdomen- + BS, soft, nontender Extremities- no cyanosis; no calf tenderness Neuro- alert, mild confusion Skin- warm & dry . Laboratory Results: Last 24 Hours Test 04/25/17 07:17 White Blood Count 5.91 K/uL Red Blood Count 4.34 M/uL Hemoglobin 11.9 g/dL Hematocrit 37.1 % Mean Corpuscular Volume 85.5 fL Mean Corpuscular Hemoglobin 27.4 pg Mean Corpuscular Hemoglobin Concent 32.1 g/dl Platelet Count 215 K/uL Mean Platelet Volume 10.6 fL Neutrophils (%) (Auto) 57.1 % Lymphocytes (%) (Auto) 27.7 % Monocytes (%) (Auto) 13.0 % Eosinophils (%) (Auto) 1.7 % Basophils (%) (Auto) 0.3 % Neutrophils # (Auto) 3.37 K/uL Lymphocytes # (Auto) 1.64 K/uL Monocytes # (Auto) 0.77 K/uL Eosinophils # (Auto) 0.10 K/uL Basophils # (Auto) 0.02 K/uL RDW Standard Deviation 51.1 fL RDW Coefficient of Variation 16.1 % Immature Granulocyte % (Auto) 0.2 % Immature Granulocyte # (Auto) 0.01 K/uL Sodium Level 141 mmol/L Potassium Level 3.5 mmol/L Chloride Level 108 mmol/L Carbon Dioxide Level 25 mmol/L Anion Gap 8.0 mmol/L Blood Urea Nitrogen 13 mg/dl Creatinine 0.80 mg/dl Est Creatinine Clear Calc Drug Dose 64.2 ml/min Estimated GFR () 81.3 Estimated GFR (Non- 70.1 BUN/Creatinine Ratio 16.3 Random Glucose 87 mg/dl Calcium Level 8.9 mg/dl Magnesium Level 1.8 mg/dl Assessment & Plan FEVER / COUGH No infiltrates on chest x-ray. Rapid influenza Ag negative, but assay has low sensitivity. Treated for possible influenza with oseltamivir. No apparent indication for other antimicrobial meds at this time. EXACERBATION COPD Secondary to lower respiratory tract infection. Discharge on short course of prednisone + albuterol MDI PRN. HYPERTENSION Continue bisoprolol and amlodipine. CKD Serum creatinine 1.1. --> 0.80. Follow. GERD Continue PPI. DEMENTIA Continue memantine and rivastigmine. VTE PROPHYLAXIS SQ enoxaparin. Ambulate. DISPOSITION Discharge to home. Family Medicine follow-up with Dr. Monson . Current Inpatient Medications: Current Inpatient Medications Medications (Trade) Dose Ordered Sig/Zunilda Route Start Time Stop Time Status Last Admin Dose Admin Enoxaparin Sodium (Lovenox Inj) 40 mg HS SC 04/22/17 21:00 05/22/17 20:59 04/24/17 20:52 40 MG Acetaminophen (Tylenol Tab) 650 mg Q4H PRN PO 04/22/17 13:30 05/22/17 13:29 04/23/17 04:03 650 MG Al Hydrox/Mg Hydrox/Simethicone (Maalox Max Susp) 15 ml Q4H PRN PO 04/22/17 13:30 05/22/17 13:29 Ondansetron HCl (Zofran Inj) 4 mg Q6H PRN IV 04/22/17 13:30 05/22/17 13:29 Nitroglycerin (Nitrostat Tab) 0.4 mg UD PRN SL 04/22/17 13:30 05/22/17 13:29 Polyethylene (Miralax Powder Packet) 17 gm DAILY PRN PO 04/22/17 13:30 05/22/17 13:29 04/23/17 15:50 17 GM Amlodipine Besylate (Norvasc Tab) 2.5 mg DAILY PO 04/23/17 09:00 05/23/17 08:59 04/25/17 08:07 2.5 MG Calcitriol (Rocaltrol Cap) 0.25 mcg DAILY PO 04/23/17 09:00 05/23/17 08:59 04/25/17 08:08 0.25 MCG Clonazepam (Klonopin Tab) 0.5 mg BID PRN PO 04/22/17 13:30 05/22/17 13:29 04/23/17 23:24 0.5 MG Fluoxetine HCl (Prozac Cap) 40 mg QAM PO 04/23/17 09:00 05/23/17 08:59 04/25/17 08:07 40 MG Memantine (Namenda Tab) 10 mg BID PO 04/22/17 21:00 05/22/17 20:59 04/25/17 08:09 10 MG Montelukast Sodium (Singulair Tab) 10 mg QAM PO 04/23/17 09:00 05/23/17 08:59 04/25/17 08:06 10 MG Rosuvastatin Calcium (Crestor Tab) 5 mg QPM PO 04/22/17 21:00 05/22/17 20:59 04/24/17 20:52 5 MG Bisoprolol Fumarate (Bisoprolol Fumarate) 10 mg QAM PO 04/23/17 09:00 05/23/17 08:59 04/25/17 08:08 10 MG Magnesium Chloride (Slow-Mag Tab) 64 mg DAILY PO 04/23/17 09:00 05/23/17 08:59 04/25/17 08:09 64 MG Pantoprazole Sodium (Protonix Tab) 40 mg QAM PO 04/23/17 09:00 05/23/17 08:59 04/25/17 08:08 40 MG Rivastigmine Tartrate (Exelon Cap) 3 mg BID PO 04/22/17 21:00 05/22/17 20:59 04/25/17 08:05 3 MG Oseltamivir Phosphate (Tamiflu Cap) 75 mg BID PO 04/22/17 21:00 04/27/17 20:59 04/25/17 08:06 75 MG Albuterol/ Ipratropium (Combivent Respimat Inh) 1 puffs QID INH 04/22/17 17:00 05/22/17 16:59 04/25/17 12:48 1 PUFFS Calcium Carbonate (Tums Chew Tab) 500 mg DAILY PO 04/23/17 09:00 05/23/17 08:59 04/25/17 08:07 500 MG Ferrous Sulfate (Feosol Tab) 325 mg BID PO 04/22/17 21:00 05/22/17 20:59 04/25/17 08:05 325 MG Levothyroxine Sodium (Synthroid Tab) 75 mcg DAILYBB PO 04/23/17 06:00 05/23/17 06:59 04/25/17 06:01 75 MCG Cholecalciferol (Vitamin D Tab) 5,000 inter.unit DAILY PO 04/23/17 09:00 05/23/17 08:59 04/25/17 08:05 5,000 INTER.UNIT Ipratropium [place] (Atrovent 0.02% 0.5MG/2.5ML Neb) 0.5 mg Q4H PRN INH 04/22/17 15:15 05/22/17 15:14 04/23/17 16:24 0.5 MG Levalbuterol (Xopenex 1.25MG/ 0.5ML Neb) 1.25 mg Q4H PRN INH 04/22/17 15:15 05/22/17 15:14 04/23/17 16:24 1.25 MG
[2017-04-25] MEDS ORDERED: ALBUAER INH (14:21)
[2017-04-25] MEDS ORDERED: PRED10TA PO (14:21)
[2017-04-25] MEDS ORDERED: TMF75 PO (14:21)
--- NOTE | 2017-04-25 14:25 | Discharge Instructions ---
Discharge Instructions Date of Service Apr 25, 2017. Admission Reason for Admission: fever and cough . Discharge Discharge Diagnosis / Problem: suspected flu Discharge Goals Goal(s): Decrease discomfort, Improve disease control Activity Recommendations Activity Limitations: as noted below (assistance with walking until stronger) . Instructions / Follow-Up Instructions / Follow-Up APPOINTMENTS: FAMILY MEDICINE 04/29/2017 11:20 AM Ivan Monson MD OTHER INSTRUCTIONS: Take oseltamivir (Tamiflu) for suspected influenza- 1 pill twice a day until gone. Take prednisone for wheezing- 4 pills daily for 5 days, first dose day of discharge. Use albuterol (Proventil or Ventolin) inhaler- 2 puffs every 6 hours as needed for wheezing. Be careful not to fall. Ask for help when walking. Seek medical attention if you have: * temperature above 101 * chest pain or trouble breathing * abdominal pain, nausea, vomiting * diarrhea, dark stools or bloody stools * any unanswered questions or concerns Call 911 if symptoms are severe. Call if you have any questions or problems. My cell # is [phone]. You can also reach a [facility] hospitalist on duty at [facility] 24 hours a day by calling [phone]. Please take good care of yourself. Joshua Burris . Current Hospital Diet Patient's current hospital diet: AHA Diet (Heart Healthy) Discharge Diet Recommended Diet: AHA Diet (Heart Healthy) Pending Studies Studies pending at discharge: no Medical Emergencies . Who to Call and When: Medical Emergencies: If at any time you feel your situation is an emergency, please call 911 immediately. . Non-Emergent Contact Non-Emergency issues call your: Primary Care Provider, Hospital Doctor . . "Provider Documentation" section prepared by Joshua Burris. . VTE Core Measure Inpt VTE Proph given/why not?: Enoxaparin (Lovenox)SQ
[2017-04-25 14:29] VITALS: BP 128/77; PULSE 69; TEMP 36.8; O2SAT 90
--- NOTE | 2017-04-26 07:59 | Discharge Summary ---
Discharge Summary Date of Service Apr 26, 2017. Discharge Summary Admission Date: Apr 22, 2017 at 13:32 Discharge Date: Apr 25, 2017 Discharge Disposition: Home Principal Diagnosis: respiratory tract infection, suspected influenza exacerbation of COPD . Secondary Diagnoses/Problems: Chronic and Resolved Medical Problems: (1) Asthma Status: Chronic (2) CKD (chronic kidney disease), stage III Status: Chronic (3) COPD (chronic obstructive pulmonary disease) Status: Chronic (4) Dementia Status: Chronic (5) GERD (gastroesophageal reflux disease) Status: Chronic (6) Hyperparathyroidism due to renal insufficiency Status: Chronic (7) Hypertension Status: Chronic (8) Hypothyroidism Status: Chronic (9) Left Hip DJD Status: Chronic (10) Localized, primary osteoarthritis of the pelvic region and thigh Status: Chronic Surgical Problems: (1) History of bladder surgery Status: Chronic (2) S/P appendectomy Status: Chronic (3) S/P cataract surgery Status: Chronic (4) S/P laminectomy Status: Chronic (5) S/P RAMYA (total abdominal hysterectomy) Status: Chronic (6) S/P tonsillectomy Status: Chronic (7) Status post hysterectomy Status: Chronic (8) Total replacement of hip Status: Chronic . Medication Reconciliation New Medications: Albuterol Sulfate (Proventil Hfa) 108 Mcg/Act Aer 2 PUFFS INH Q6 PRN for Wheezing, #1 INHALER Prednisone Tab (Prednisone) 10 Mg Tab 40 MG PO DAILY, #20 TAB Take 4 pills (40 mg) daily for 5 days- first dose Friday04/25/17. Oseltamivir Phosphate (Tamiflu) 75 Mg Cap 75 MG PO BID, #4 CAP Continued Medications: Amlodipine (Norvasc) 5 Mg Tab 2.5 MG PO DAILY Bisoprolol Fumarate (Bisoprolol Fumarate) 10 Mg Tab 10 MG PO QAM Calcitriol (Rocaltrol Cap) 0.25 Mcg Cap 0.25 MCG PO DAILY Calcium Carbonate (Tums) 500 Mg Chew 500 MG PO DAILY, #30 Cholecalciferol (Vitamin D3) 5,000 Unit Cap 5000 UNITS PO DAILY, #30 Clonazepam (Klonopin) 0.5 Mg Tab 0.5 MG PO BID PRN for Anxiety Ferrous Sulfate (Ferrous Sulfate) 325 Mg Tab 325 MG PO BID, #60 Fluoxetine Hcl (Prozac) 20 Mg Cap 40 MG PO QAM, CAP Levothyroxine Sodium (Levothyroxine Sodium) 75 Mcg Tab 1 TAB PO DAILY for 30 Days, #30 TAB 5 Refills Magnesium Chloride-Calcium Car (Slow-Mag) 1 Tab Tab 1 TAB PO DAILY Memantine (Namenda) 10 Mg Tab 10 MG PO BID, 0 Refills Montelukast Sodium (Singulair) 10 Mg Tab 10 MG PO QAM, TAB Omeprazole (Prilosec) 20 Mg Capcr 20 MG PO QAM, CAP Rivastigmine Tartrate (Exelon) 3 Mg Cap 3 MG PO BID Rosuvastatin Calcium (Crestor) 5 Mg Tab 5 MG PO QPM, TAB Admission Information HPI (per Admitting provider): This 81-year-old female with a past medical history significant for hypothyroidism, restless legs syndrome, COPD, dementia, anxiety, chronic kidney disease stage III, generalized osteoarthritis, hypertension, GERD, hyperlipidemia, and hyperparathyroidism due to renal insufficiency, presents with fever starting last night. The patient says since last night not feeling well, generalized body aches and had fever spike and was having dry cough. In the ER, she has episode of vomiting. Denies any shortness of breath, has some headaches. Denies dizziness, no blurred vision, no abdominal pain. Normal bowel and bladder movements. Appetite is not good since yesterday. No swelling in the legs. No rash. The patient says she is up-to-date with her flu shot. Currently resting comfortably and hemodynamically stable. . Physical Exam (per Admitting): GENERAL: The patient is of moderate-built, not in distress. VITAL SIGNS: Temperature T-max 38.8, pulse 75, respiratory rate 18, blood pressure 127/68, and oxygen 92% room air. HEENT: No pallor. No icterus. Pupils equal, round and reactive to light. NECK: No JVD, no neck masses, and no carotid bruits. CARDIOVASCULAR: S1 and S2 heard. Regular rate and rhythm. No murmur. No gallop. RESPIRATORY: Normal AP diameter. No accessory muscle use. Occasional rhonchi heard in the right lower lobe. No wheezing. ABDOMEN: Soft. Bowel sounds present. Nontender. No distention. CENTRAL NERVOUS SYSTEM: Cranial nerves II-XII grossly intact. Nonfocal. EXTREMITIES: No edema. No erythema. . Hospital Course FEVER / COUGH Presented to ED with fever, cough, malaise. No infiltrates on chest x-ray. Rapid influenza Ag negative, but assay has low sensitivity. Treated for possible influenza with oseltamivir based on clinical presentation. No apparent indication for other antimicrobial meds at this time. EXACERBATION COPD Secondary to lower respiratory tract infection. Discharge on short course of prednisone + albuterol MDI PRN. HYPERTENSION Continue bisoprolol and amlodipine. CKD Serum creatinine 1.1. --> 0.80. Follow. GERD Continue PPI. DEMENTIA Continue memantine and rivastigmine. VTE PROPHYLAXIS SQ enoxaparin. Ambulate. DISPOSITION Discharged to home. Family Medicine follow-up with Dr. Monson . Total time spent on discharge = 40 min. This includes examination of the patient, discharge planning, medication reconciliation, and communication with other providers. . Discharge Instructions Date of Service Apr 25, 2017. Admission Reason for Admission: fever and cough . Discharge Discharge Diagnosis / Problem: suspected flu Discharge Goals Goal(s): Decrease discomfort, Improve disease control Activity Recommendations Activity Limitations: as noted below (assistance with walking until stronger) . Instructions / Follow-Up Instructions / Follow-Up APPOINTMENTS: FAMILY MEDICINE 04/29/2017 11:20 AM Ivan Monson MD OTHER INSTRUCTIONS: Take oseltamivir (Tamiflu) for suspected influenza- 1 pill twice a day until gone. Take prednisone for wheezing- 4 pills daily for 5 days, first dose day of discharge. Use albuterol (Proventil or Ventolin) inhaler- 2 puffs every 6 hours as needed for wheezing. Be careful not to fall. Ask for help when walking. Seek medical attention if you have: * temperature above 101 * chest pain or trouble breathing * abdominal pain, nausea, vomiting * diarrhea, dark stools or bloody stools * any unanswered questions or concerns Call 911 if symptoms are severe. Call if you have any questions or problems. My cell # is [phone]. You can also reach a [facility] hospitalist on duty at [facility] 24 hours a day by calling [phone]. Please take good care of yourself. Joshua Burris . Current Hospital Diet Patient's current hospital diet: AHA Diet (Heart Healthy) Discharge Diet Recommended Diet: AHA Diet (Heart Healthy) Pending Studies Studies pending at discharge: no Medical Emergencies . Who to Call and When: Medical Emergencies: If at any time you feel your situation is an emergency, please call 911 immediately. . Non-Emergent Contact Non-Emergency issues call your: Primary Care Provider, Hospital Doctor . . "Provider Documentation" section prepared by Joshua Burris. . VTE Core Measure Inpt VTE Proph given/why not?: Enoxaparin (Lovenox)SQ .
== END 2017-04-25 15:12 | disposition home health service (06) | DRG 191 ==
LOC: EDBD 10:52 → C.EDC 10:54 → C.2T 13:32 → EDBEDREQ 13:46 → ENRESERV 14:54 → C.MS2W 04-23 21:11
PROVIDERS: ADMIT Hospitalist; ATTEND Hospitalist
DX: J44.0 Chronic obstructive pulmonary disease with (acute) lower respiratory infection (principal); N25.81 Secondary hyperparathyroidism of renal origin; J22 Unspecified acute lower respiratory infection; J11.1 Influenza due to unidentified influenza virus with other respiratory manifestations; J44.1 Chronic obstructive pulmonary disease with (acute) exacerbation; I12.9 Hypertensive chronic kidney disease with stage 1 through stage 4 chronic kidney disease, or unspecified chronic kidney disease; N18.3 Chronic kidney disease, stage 3 (moderate); F03.90 Unspecified dementia, unspecified severity, without behavioral disturbance, psychotic disturbance, mood disturbance, and anxiety; F32.9 Major depressive disorder, single episode, unspecified; F41.9 Anxiety disorder, unspecified; K21.9 Gastro-esophageal reflux disease without esophagitis; E78.5 Hyperlipidemia, unspecified; E03.9 Hypothyroidism, unspecified; M19.90 Unspecified osteoarthritis, unspecified site; G25.81 Restless legs syndrome; Z87.891 Personal history of nicotine dependence; Z91.040 Latex allergy status; Z80.0 Family history of malignant neoplasm of digestive organs; Z80.6 Family history of leukemia; Z82.49 Family history of ischemic heart disease and other diseases of the circulatory system

== ENCOUNTER 2018-05-09 17:53 | Inpatient (IN) ==
[2018-05-09] MEDS ORDERED: SODIUM CHLORIDE 0.9% 500 ML IV SCH (18:15)
--- NOTE | 2018-05-09 18:33 | Emergency Department Note ---
Entered by Angel Rodriguez acting as a scribe for Lamberto Michaels DO History of Present Illness General Chief complaint: Confusion Stated complaint: weakness History of Present Illness The patient is an 82-year-old female who presented to the emergency department by ambulance with family members for an evaluation of generalized weakness. The patient lives at home and is checked on often by family members. She also has home health that comes by to check on her as well. The patient was found on the floor by home health today. She had no reported injuries. Home health found her on the floor at approximately 11 AM. The patient was able to get back into her recliner. She was able to eat lunch with her other daughter. The patient presented to the emergency department after she has continued generalized weakness but her family members also feel that she is not at her baseline mental status. The patient has no definite injuries although she does have right shoulder pain that she is been dealing with for the last few weeks. She is scheduled to see an orthopedic physician this week for this pain. She was able to stand. She has no new hip pain according to the family members. There is no reported loss of consciousness. The patient herself does not offer many complaints but she does suffer from Alzheimer's. There is no reported nausea vomiting or fever. Home Medications Home Medications Medication Instructions Recorded Confirmed Type albuterol sulfate [Proventil HFA] 2 puff INHALATION Q6H PRN 01/20/18 05/09/18 History amlodipine 2.5 mg PO DAILY 01/20/18 05/09/18 History bisoprolol fumarate 10 mg PO QAM 01/20/18 05/09/18 History calcitriol 0.25 mcg PO DAILY 01/20/18 05/09/18 History calcium carbonate [Calcium 600] 600 mg PO DAILY 01/20/18 05/09/18 History cholecalciferol (vitamin D3) 5,000 units PO DAILY 01/20/18 05/09/18 History [Vitamin D3] clonazepam 0.5 mg PO BID PRN 01/20/18 05/09/18 History ferrous sulfate 325 mg PO BID 01/20/18 05/09/18 History fluoxetine 60 mg PO QAM 01/20/18 05/09/18 History levothyroxine 75 mcg PO QAM 01/20/18 05/09/18 History memantine 10 mg PO BID 01/20/18 05/09/18 History montelukast 10 mg PO QAM 01/20/18 05/09/18 History omeprazole 20 mg PO QAM 01/20/18 05/09/18 History rivastigmine tartrate 3 mg PO BID 01/20/18 05/09/18 History rosuvastatin 5 mg PO QPM 01/20/18 05/09/18 History magnesium chloride [Slow-Mag] 71.5 mg PO DAILY 05/09/18 05/09/18 History Allergies Allergy/AdvReac Type Severity Reaction Status Date / Time latex Allergy Mild RASH Verified 04/22/17 11:53 donepezil Allergy Unknown NIGHTMARES Verified 04/22/17 11:53 NSAIDS (Non-Steroidal Allergy Unknown NOT TO Verified 01/20/18 16:06 Anti-Inflamma TAKE DUE TO KIDNEY CHANGES Past Med/Surg History Medical History Hypertension (Chronic) Dementia (Chronic) Hypothyroidism (Chronic) GERD (gastroesophageal reflux disease) (Chronic) COPD (chronic obstructive pulmonary disease) (Chronic) CKD (chronic kidney disease), stage III (Chronic) 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, 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) Surgical History S/P tonsillectomy (Chronic) S/P appendectomy (Chronic) S/P laminectomy (Chronic) History of bladder surgery (Chronic) S/P cataract surgery (Chronic) S/P RAMYA (total abdominal hysterectomy) (Chronic) Total replacement of hip (Chronic) Status post hysterectomy (Chronic) Family History Other Family history non-contributory Social History marital status: Current Living Situation: Alone Current Living Situation Comment: home with caregivers Other Information That Helps Us Care for You: No Feels Safe at Home: Yes Safety Concerns: Feels Safe At This Time Smoking Status: Former smoker Do You Dip or Chew Tobacco: No Second Hand Exposure: No Tobacco Cessation Education Requested by Patient: No Hx Alcohol Use: No Hx Substance Use: No Beliefs That Will Affect Care: None Preferred Language: [place] Communication Ability: Effective Graphic Design Manager Required: No Review of Systems See HPI for pertinent positives & negatives. and A total of 10 systems reviewed and were otherwise negative Additional history was obtained from the daughter and son-in-law. History was limited secondary to patient's underlying dementia. Physical Exam Vital Signs Vital Signs - 24 hr 05/09/18 18:46 05/09/18 19:14 05/09/18 21:52 Temperature 36.8 C Temperature Source Oral Pulse Rate Pulse Rate [Apical] 82 86 Respiratory Rate 18 24 Respiratory Effort / Characteristics Non-Labored Non-Labored Respiratory Depth Normal Normal Respiratory Pattern Blood Pressure [Left Arm] 172/104 H 164/86 H Blood Pressure Mean [Left Arm] 126 112 Blood Pressure Position [Left Arm] Pulse Oximetry 94 92 94 Pulse Oximetry [Right Index Finger] Oxygen Delivery Method Room Air Room Air Room Air Oxygen Delivery Method [Right Index Finger] 05/09/18 22:40 05/09/18 23:24 05/10/18 01:49 Temperature Temperature Source Pulse Rate Pulse Rate [Apical] 73 77 72 Respiratory Rate 18 24 Respiratory Effort / Characteristics Non-Labored Non-Labored Respiratory Depth Normal Normal Respiratory Pattern Blood Pressure [Left Arm] 133/84 157/90 H 147/78 H Blood Pressure Mean [Left Arm] 100 112 101 Blood Pressure Position [Left Arm] Pulse Oximetry 96 94 Pulse Oximetry [Right Index Finger] Oxygen Delivery Method Room Air Room Air Oxygen Delivery Method [Right Index Finger] 05/10/18 02:34 05/10/18 03:57 05/10/18 07:00 Temperature 36.6 C 36.6 C 36.5 C Temperature Source Oral Oral Oral Pulse Rate Pulse Rate [Apical] 73 72 69 Respiratory Rate 20 20 18 Respiratory Effort / Characteristics Non-Labored Spontaneous Non-Labored Spontaneous Respiratory Depth Normal Normal Respiratory Pattern Regular Regular Blood Pressure [Left Arm] 149/82 H 149/82 H 143/79 H Blood Pressure Mean [Left Arm] 104 104 100 Blood Pressure Position [Left Arm] Lying Lying Lying Pulse Oximetry 96 96 94 Pulse Oximetry [Right Index Finger] 96 Oxygen Delivery Method Room Air Room Air Room Air Oxygen Delivery Method [Right Index Finger] Room Air 05/10/18 11:00 05/10/18 15:45 05/10/18 16:42 Temperature 37.0 C 36.8 C Temperature Source Oral Oral Pulse Rate 71 Pulse Rate [Apical] 68 83 Respiratory Rate 18 20 Respiratory Effort / Characteristics Respiratory Depth Respiratory Pattern Blood Pressure [Left Arm] 122/75 126/68 Blood Pressure Mean [Left Arm] 90 87 Blood Pressure Position [Left Arm] Lying Pulse Oximetry 91 95 Pulse Oximetry [Right Index Finger] Oxygen Delivery Method Room Air Oxygen Delivery Method [Right Index Finger] GENERAL: Patient is awake and alert. She answers questions appropriately but slowly. She follows commands well. EYES: The conjunctivae are clear. The pupils are round and reactive. EARS, NOSE, MOUTH AND THROAT: The nose is without any evidence of any deformity. Mucous membranes are moist.Tongue is midline NECK: The neck is nontender and supple. RESPIRATORY: Normal respiratory effort is noted. There is no evidence of wheezing rhonchi or rales to auscultation. CARDIOVASCULAR: Regular rate and rhythm noted. There no murmurs rubs or gallops normal S1 normal S2 GASTROINTESTINAL: The abdomen is moderately distended. There is guarding in the right upper quadrant to palpation. There is diffuse tenderness to palpation. MUSCULOSKELETAL/EXTREMITIES: There is no deformity in the lower extremities. Range of motion of the hips does not elicit pain. There is pain with range of motion of the right shoulder. There is no deformity erythema or warmth noted to the right shoulder. SKIN: There is no obvious evidence of any rash. Trace pedal edema was noted bilaterally. NEUROLOGIC: Patient is awake and oriented to person but not place time or situation. She is able to hold each leg off the bed for greater than 5 seconds. Patient has an upgoing toe on her left foot. There was no facial droop appreciated. Course 1800: Past medical records reviewed. The patient was evaluated in room C4, and a complete history and physical examination were performed. 2104: I reevaluated the patient. I explained to the patient her X-ray and CT results. She states she has pain in her right upper quadrant with guarding noted. 2114: I reviewed the patient's case with Dr. Rivera. He recommends I contact surgery. He will evaluate the patient now. 2119: I reviewed the patient's case with Dr. Ruelas. He recommends further testing such HIDA scan or ultrasound. Administered Medications Acetaminophen (Tylenol) 650 mg PO Q4H PRN PRN Reason: Pain or Fever Stop: 06/09/18 02:33 Last Admin: 05/10/18 16:53 Dose: 650 mg Amlodipine Besylate (Norvasc) 2.5 mg PO DAILY OBINNA Stop: 06/09/18 08:59 Last Admin: 05/10/18 11:12 Dose: Not Given Ferrous Sulfate (Feosol) 325 mg PO BID [facility] Stop: 06/09/18 08:59 Last Admin: 05/10/18 11:11 Dose: Not Given Fluoxetine HCl (Prozac) 60 mg PO QAM [facility] Stop: 06/09/18 08:59 Last Admin: 05/10/18 11:12 Dose: Not Given Potassium Chloride/Dextrose/Sod Cl (D5nss + 20meq Kcl) 20 meq in 1,000 mls @ 75 mls/hr IV .[id number] [facility] Stop: 06/09/18 03:59 Last Admin: 05/10/18 05:07 Dose: 75 mls/hr Levothyroxine Sodium (Synthroid) 75 mcg PO DAILYBB [facility] Stop: 06/09/18 06:29 Last Admin: 05/10/18 05:07 Dose: 75 mcg Memantine (Namenda) 10 mg PO BID [facility] Stop: 06/09/18 08:59 Last Admin: 05/10/18 11:11 Dose: Not Given Miscellaneous (Order Awaiting Action) 1 ea N/A QS [facility] Stop: 06/09/18 07:59 Last Admin: 05/10/18 16:41 Dose: Not Given Admin: 05/10/18 09:05 Dose: Not Given Montelukast Sodium (Singulair) 10 mg PO QAM [facility] Stop: 06/09/18 08:59 Last Admin: 05/10/18 11:12 Dose: Not Given Pantoprazole S[facility] ([facility]ix) [facility] Stop: 06/09/18 08:59 Last Admin: 05/10/18 11:12 Dose: Not Given Rivastigmine Tartrate (Exelon) 3 mg PO BID [facility] Stop: 06/09/18 08:59 Last Admin: 05/10/18 11:11 Dose: Not Given Discontinued Medications Amlodipine Besylate (Norvasc) 2.5 mg PO NOW ONE Stop: 05/09/18 21:37 Last Admin: 05/09/18 22:39 Dose: 2.5 mg Sodium Chloride (Nss) 500 mls @ 999 mls/hr IV .Q31M [facility] Stop: 05/09/18 18:45 Last Infusion: 05/09/18 19:49 Dose: 0 mls/hr Admin: 05/09/18 19:13 Dose: 999 mls/hr Piperacillin Sod/Tazobactam Sod (Zosyn) 4.5 gm in 120 mls @ 240 mls/hr IV NOW ONE Stop: 05/09/18 21:41 Last Infusion: 05/09/18 22:56 Dose: 0 mls/hr Admin: 05/09/18 22:22 Dose: 240 mls/hr Sodium Chloride (Nss 1000ml) 500 mls @ 999 mls/hr IV .Q31M ONE Stop: 05/09/18 21:42 Last Infusion: 05/09/18 22:56 Dose: 0 mls/hr Admin: 05/09/18 22:23 Dose: 999 mls/hr Piperacillin Sod/Tazobactam (Sod 3.375 gm/ Dextrose) 115 mls @ 230 mls/hr IV NOW ONE; Protocol Stop: 05/10/18 17:59 Last Admin: 05/10/18 18:12 Dose: 230 mls/hr Ioversol (Optiray 320 100ml) 95 ml IV ONCE PRN PRN Reason: Interaction Checking Stop: 05/13/18 20:44 Last Admin: 05/09/18 20:45 Dose: 95 ml Miscellaneous Information (Consult) 1 ea N/A UD PRN PRN Reason: Consult Stop: 06/08/18 21:11 Last Admin: 05/09/18 22:24 Dose: 1 ea Morphine Sulfate (Morphine Sulfate) 2 mg IV NOW STA Stop: 05/10/18 12:45 Last Admin: 05/10/18 01:00 Dose: 2 mg Morphine Sulfate (Morphine Sulfate) Confirm Administered Dose 4 mg .ROUTE .STK- MED ONE Stop: 05/10/18 12:54 Last Admin: 05/10/18 13:05 Dose: Not Given Perflutren Lipid Microsphere (Definity) 2 ml IV ONCE ONE Stop: 05/10/18 10:45 Last Admin: 05/10/18 10:45 Dose: 2 ml Medical Decision Making Differential Diagnosis Etiologies such as metabolic, infection, hypo/hyperglycemia, electrolyte abnormalities, cardiac sources, intracerebral event, toxicologic, neurologic, as well as others were entertained. Medical Records Attestation: I reviewed the patient's medical records. Home Medications Current Medication List: was personally reviewed by me Laboratory Data Attestation: I reviewed the patient's lab results. Result diagrams: 05/10/18 06:33 05/10/18 06:33 Lab Results 05/09/18 05/09/18 05/09/18 Range/Units 18:46 18:46 18:46 WBC 14.82 H (4.8-10.8) K/uL RBC 5.00 (4.2-5.4) M/uL Hgb 14.0 (12.0-16.0) g/dL Hct 43.2 (37-47) % MCV 86.4 (80-100) fL MCH 28.0 (25-34) pg MCHC 32.4 (32-36) g/dL RDW Std Deviation 52.6 H (36.4-46.3) fL RDW Coeff of Stalin 16.6 H (11.5-14.5) % Plt Count 279 (130-400) K/uL MPV 10.7 H (7.4-10.4) fL Immature Gran % (Auto) 0.3 % Neut % (Auto) 80.4 % Lymph % (Auto) 11.1 % [place] % (Auto) 7.1 % Eos % (Auto) 0.9 % Baso % (Auto) 0.2 % Immature Gran # (Auto) 0.04 H (0.00-0.02) K/uL Neut # (Auto) 11.92 H (1.4-6.5) K/uL Lymph # (Auto) 1.64 (1.2-3.4) K/uL [place] # (Auto) 1.05 H (0.11-0.59) K/uL Eos # (Auto) 0.14 (0-0.5) K/uL Baso # (Auto) 0.03 (0-0.2) K/uL ESR > 90 H (0-21) mm/hr PT Cancelled INR Cancelled APTT Cancelled PTT Ratio Cancelled Sodium (136-145) mmol/L Potassium (3.5-5.1) mmol/L Chloride (98-107) mmol/L Carbon Dioxide (21-32) mmol/L Anion Gap (3-11) BUN (7-18) mg/dl Creatinine (0.6-1.2) mg/dl Est Cr Clr Drug Dosing Est GFR ( Amer) Est GFR (Non-Af Amer) BUN/Creatinine Ratio (10-20) Glucose (70-99) mg/dl Calcium (8.5-10.1) mg/dl Magnesium (1.8-2.4) mg/dl Total Bilirubin (0.2-1) mg/dl AST (15-37) U/L ALT (12-78) U/L Alkaline Phosphatase (45-117) U/L Total Creatine Kinase (26-192) U/L CK-MB (CK-2) (0.5-3.6) ng/ml CK/CKMB % Calc (0-3.0) Troponin I (0-0.045) ng/ml C-Reactive Protein (0-0.29) mg/dl Total Protein (6.4-8.2) gm/dl Albumin (3.4-5.0) gm/dl Globulin (2.5-4.0) gm/dl Albumin/Globulin Ratio (0.9-2) Lipase (73-393) U/L Procalcitonin (0-0.5) ng/ml TSH (0.300-4.500) uIu/ml Urine Color Urine Appearance (Clear) Urine pH (4.5-7.5) Ur Specific [place] (1.000-1.030) Urine Protein (Negative) Urine Glucose (UA) (Negative) Urine Ketones (Negative) Urine Blood (Negative) Urine Nitrite (Negative) Urine Bilirubin (Negative) Urine Urobilinogen (Negative) Ur Leukocyte Esterase (Negative) 05/09/18 05/09/18 05/09/18 Range/Units 18:46 19:31 19:53 WBC (4.8-10.8) K/uL RBC (4.2-5.4) M/uL Hgb (12.0-16.0) g/dL Hct (37-47) % MCV (80-100) fL MCH (25-34) pg MCHC (32-36) g/dL RDW Std Deviation (36.4-46.3) fL RDW Coeff of Stalin (11.5-14.5) % Plt Count (130-400) K/uL MPV (7.4-10.4) fL Immature Gran % (Auto) % Neut % (Auto) % Lymph % (Auto) % [place] % (Auto) % Eos % (Auto) % Baso % (Auto) % Immature Gran # (Auto) (0.00-0.02) K/uL Neut # (Auto) (1.4-6.5) K/uL Lymph # (Auto) (1.2-3.4) K/uL [place] # (Auto) (0.11-0.59) K/uL Eos # (Auto) (0-0.5) K/uL Baso # (Auto) (0-0.2) K/uL ESR (0-21) mm/hr PT 10.4 INR 1.0 APTT 26.2 PTT Ratio 1.0 Sodium 137 (136-145) mmol/L Potassium 3.9 (3.5-5.1) mmol/L Chloride 102 (98-107) mmol/L Carbon Dioxide 26 (21-32) mmol/L Anion Gap 9.0 (3-11) BUN 14 (7-18) mg/dl Creatinine 1.07 (0.6-1.2) mg/dl Est Cr Clr Drug Dosing Not Reportable Est GFR ( Amer) 56.8 Est GFR (Non-Af Amer) 49.0 BUN/Creatinine Ratio 13.2 (10-20) Glucose 92 (70-99) mg/dl Calcium 9.8 (8.5-10.1) mg/dl Magnesium 2.0 (1.8-2.4) mg/dl Total Bilirubin 0.6 (0.2-1) mg/dl AST 15 (15-37) U/L ALT 16 (12-78) U/L Alkaline Phosphatase 118 H (45-117) U/L Total Creatine Kinase 233 H (26-192) U/L CK-MB (CK-2) 2.6 (0.5-3.6) ng/ml CK/CKMB % Calc 1.1 (0-3.0) Troponin I < 0.015 (0-0.045) ng/ml C-Reactive Protein 8.19 H (0-0.29) mg/dl Total Protein 7.7 (6.4-8.2) gm/dl Albumin 3.4 (3.4-5.0) gm/dl Globulin 4.3 H (2.5-4.0) gm/dl Albumin/Globulin Ratio 0.8 L (0.9-2) Lipase 101 (73-393) U/L Procalcitonin (0-0.5) ng/ml TSH 1.550 (0.300-4.500) uIu/ml Urine Color Yellow Urine Appearance Clear (Clear) Urine pH 5.5 (4.5-7.5) Ur Specific [place] 1.010 (1.000-1.030) Urine Protein Negative (Negative) Urine Glucose (UA) Negative (Negative) Urine Ketones Negative (Negative) Urine Blood Negative (Negative) Urine Nitrite Negative (Negative) Urine Bilirubin Negative (Negative) Urine Urobilinogen Negative (Negative) Ur Leukocyte Esterase Negative (Negative) 05/09/18 05/10/18 05/10/18 Range/Units 21:50 06:33 06:33 WBC 10.29 (4.8-10.8) K/uL RBC 4.61 (4.2-5.4) M/uL Hgb 12.7 (12.0-16.0) g/dL Hct 39.8 (37-47) % MCV 86.3 (80-100) fL MCH 27.5 (25-34) pg MCHC 31.9 L (32-36) g/dL RDW Std Deviation 53.2 H (36.4-46.3) fL RDW Coeff of Stalin 17.0 H (11.5-14.5) % Plt Count 254 (130-400) K/uL MPV 11.1 H (7.4-10.4) fL Immature Gran % (Auto) 0.2 % Neut % (Auto) 69.9 % Lymph % (Auto) 18.6 % [place] % (Auto) 8.0 % Eos % (Auto) 3.2 % Baso % (Auto) 0.1 % Immature Gran # (Auto) 0.02 (0.00-0.02) K/uL Neut # (Auto) 7.20 H (1.4-6.5) K/uL Lymph # (Auto) 1.91 (1.2-3.4) K/uL [place] # (Auto) 0.82 H (0.11-0.59) K/uL Eos # (Auto) 0.33 (0-0.5) K/uL Baso # (Auto) 0.01 (0-0.2) K/uL ESR (0-21) mm/hr PT INR APTT PTT Ratio Sodium 138 (136-145) mmol/L Potassium 3.7 (3.5-5.1) mmol/L Chloride 106 (98-107) mmol/L Carbon Dioxide 27 (21-32) mmol/L Anion Gap 5.0 (3-11) BUN 11 (7-18) mg/dl Creatinine 0.97 (0.6-1.2) mg/dl Est Cr Clr Drug Dosing 52.6 Est GFR ( Amer) 63.9 Est GFR (Non-Af Amer) 55.2 BUN/Creatinine Ratio 11.1 (10-20) Glucose 99 (70-99) mg/dl Calcium 9.1 (8.5-10.1) mg/dl Magnesium (1.8-2.4) mg/dl Total Bilirubin 0.7 (0.2-1) mg/dl AST 13 L (15-37) U/L ALT 13 (12-78) U/L Alkaline Phosphatase 99 (45-117) U/L Total Creatine Kinase 151 (26-192) U/L CK-MB (CK-2) (0.5-3.6) ng/ml CK/CKMB % Calc (0-3.0) Troponin I (0-0.045) ng/ml C-Reactive Protein (0-0.29) mg/dl Total Protein 6.5 (6.4-8.2) gm/dl Albumin 2.7 L (3.4-5.0) gm/dl Globulin 3.8 (2.5-4.0) gm/dl Albumin/Globulin Ratio 0.7 L (0.9-2) Lipase (73-393) U/L Procalcitonin < 0.05 (0-0.5) ng/ml TSH (0.300-4.500) uIu/ml Urine Color Urine Appearance (Clear) Urine pH (4.5-7.5) Ur Specific [place] (1.000-1.030) Urine Protein (Negative) Urine Glucose (UA) (Negative) Urine Ketones (Negative) Urine Blood (Negative) Urine Nitrite (Negative) Urine Bilirubin (Negative) Urine Urobilinogen (Negative) Ur Leukocyte Esterase (Negative) Imaging Data Radiologist's Impression: Radiology results as stated below per my review and the radiologist's interpretation: CT cervical spine wo con CLINICAL HISTORY: 82 years-old Female presenting with fall. TECHNIQUE: Multidetector CT of the cervical spine was performed without the use of intravenous contrast. IV contrast: None. One or more dose lowering techniques were used consistent with the principles of ALARA (as low as reasonably achievable), including automatic exposure control, mA or kV adjustment to individual patient size, and/or use of iterative reconstruction. COMPARISON: 08/09/2015. CT DOSE (mGy.cm): The estimated cumulative dose is 976.58. FINDINGS: [facility] topogram: Unremarkable. Normal cervical lordosis at vertebral bodies grossly maintain normal height and alignment. Advanced degenerative changes with multilevel moderate to severe intervertebral disc height loss from C4-5 through C7-T1. Disc osteophyte complexes at these levels with mild to moderate posterior bony spurring greatest at C5-6 and C6-7. Varying degrees of osseous neural foraminal narrowing. No acute fracture or subluxation. Paraspinal soft tissues normal. IMPRESSION: 1. No acute osseous injury of the cervical spine. 2. Multilevel degenerative changes of the cervical spine. Electronically signed by: Bo Bullard M.D. 05/09/2018 7:[address] head/brain wo con CLINICAL HISTORY: 82 years-old Female presenting with weakness. TECHNIQUE: Multidetector CT imaging of the head was performed without the use of intravenous contrast. IV contrast: None. One or more dose lowering techniques were used consistent with the principles of ALARA (as low as reasonably achievable), including automatic exposure control, mA or kV adjustment to individual patient size, and/or use of iterative reconstruction. COMPARISON: 02/08/2016. CT DOSE (mGy.cm): The estimated cumulative dose is 976.58 mGy.cm. FINDINGS: [facility] topogram: Unremarkable. Ventricles and sulci normal in size. No hemorrhage. Periventricular and subcortical white matter hypoattenuation, nonspecific but likely indicative of chronic small vessel ischemic change. No acute territorial infarct. No mass effect or midline shift. No extra-axial fluid collection. Paranasal sinuses and mastoid air cells clear. Calvarium intact. IMPRESSION: 1. Chronic small vessel ischemic change. No acute intracranial abnormality. Electronically signed by: Bo Bullard M.D. 05/09/2018 7:15 PM XR chest 1V portable CLINICAL HISTORY: 82 years-old Female presenting with weakness. TECHNIQUE: Portable upright AP view of the chest was obtained. COMPARISON: 01/20/2018. FINDINGS: Atherosclerosis of the aortic arch. Cardiac silhouette top normal in size. No focal opacity. No large effusion or pneumothorax. Degenerative changes of the thoracic spine. Degenerative changes of the glenohumeral joints, left greater than right. IMPRESSION: 1. No acute cardiopulmonary disease. Electronically signed by: Bo Bullard M.D. 05/09/2018 6:52 PM XR pelvis 1-2V routine CLINICAL HISTORY: 82 years-old Female presenting with fall. TECHNIQUE: Single frontal view of the pelvis was obtained. COMPARISON: . FINDINGS: Bilateral total hip arthroplasties again noted. Osteopenia. This limits evaluation for nondisplaced fracture. No gross evidence of a periprosthetic fracture or other hardware complication. Sacroiliac joints and pubic symphysis congruent. Arcuate lines of the sacrum grossly intact. Bony pelvis intact. Degenerative changes of the lower lumbar spine. IMPRESSION: Allowing for the degree of osteopenia, no acute osseous injury of the pelvis. Electronically signed by: Bo Bullard M.D. 05/09/2018 6:50 PM XR shoulder RT min 2V routine CLINICAL HISTORY: 82 years-old Female presenting with fall. TECHNIQUE: Internal rotation, external rotation, Grashey views of the right shoulder were obtained. COMPARISON: Correlation made to chest x-ray from 01/20/2018. FINDINGS: Inferior osteophytosis at the humeral head with mid to inferior joint space loss at the glenohumeral joint. A lesser degree of osteophytosis is noted at the inferior aspect of the bony glenoid. Acromioclavicular joint congruent. Evaluation is limited by suboptimal internal rotation view. Allowing for this, no acute fracture or subluxation. Suspected underlying osteopenia. IMPRESSION: Evaluation is limited by suboptimal internal rotation view. 1. No acute osseous injury. 2. Degenerative changes of the glenohumeral joint with joint space loss. Electronically signed by: Bo Bullard M.D. 05/09/2018 6:[address] abd pelvis IV con only CLINICAL HISTORY: 82 years-old Female presenting with altered MS, high WBC. TECHNIQUE: Multidetector CT of the abdomen and pelvis was performed after the administration of intravenous contrast. IV contrast: 95 mL of Optiray 320. One or more dose lowering techniques were used consistent with the principles of ALARA (as low as reasonably achievable), including automatic exposure control, mA or kV adjustment to individual patient size, and/or use of iterative reconstruction. COMPARISON: 02/14/2016. CT DOSE (mGy.cm): The estimated cumulative dose is 1636.71 mGy.cm. FINDINGS: [facility] topogram: Bilateral total hip arthroplasties. Lung bases: Subpleural groundglass opacity in the lateral basal right lower lobe may be postinfectious or postinflammatory versus scarring. Normal heart size. No pericardial or pleural effusion. Liver: Normal morphology. No liver lesion. Patent hepatic vasculature. Biliary: Mild central intrahepatic and extra hepatic biliary ductal prominence as on prior exam. Gallbladder contains numerous gallstones and is distended, possibly on a physiologic basis. No convincing evidence of pathologic wall thickening. No pericholecystic fluid or inflammatory change. Importantly, no evidence of tension on the overlying abdominal wall. Pancreas: Moderate parenchymal atrophy. Spleen: Normal. Adrenal glands: Normal. Kidneys and ureters: Normal. No hydronephrosis. Ureters nondilated. Distal ureters poorly evaluated given extensive streak artifact. Bladder: Poorly evaluated secondary to extensive streak artifact. Ligamentous laxity suggested by the bladder configuration. Pelvic organs: Uterus surgically absent. No adnexal masses. Atrophic ovaries. Bowel: Diverticulosis of the mid to distal sigmoid colon without wall thickening or pericolonic inflammatory change. Few colonic diverticula noted in the ascending colon. The appendix may be absent though the cecum is poorly evaluated due to streak artifact. No bowel obstruction. Peritoneal cavity: No free fluid or intraperitoneal gas. Lymph nodes: No enlarged lymph nodes in the abdomen or pelvis. Vasculature: Atherosclerosis of the normal caliber abdominal aorta. IVC patent. Abdominal wall: Postsurgical changes of the infraumbilical midline abdominal wall. Musculoskeletal: Bilateral total hip arthroplasty. Osteopenia. Degenerative changes of the spine. IMPRESSION: 1. Distended gallbladder with extensive gallstones. No convincing evidence of tension or cholecystitis at this time. If there is clinical ambiguity, nuclear medicine HIDA scan could be obtained. 2. Streak artifact arising from the bilateral total hip arthroplasties degrade evaluation of the pelvis. The appendix is not visualized, which may be result of artifact or absence on a surgical basis. 3. Diverticulosis. No evidence of diverticulitis. Electronically signed by: Bo Bullard M.D. 05/09/2018 8:58 PM ECG Data Attestation: I personally reviewed and interpreted this ECG as follows: Indication: weakness Rate (beats per minute): 74 Rhythm: sinus rhythm Findings: no ST depression, no ST elevation and no ectopy Comparison ECG Date: from (01/20/18) Change: no significant change Blood Pressure Blood Pressure Findings: Elevated blood pressure Blood Pressure Disposition: elevated BP felt to be situational MDM Narrative The patient is an 82-year-old female who presented to the emergency department by ambulance with family members for an evaluation of altered mental status. The patient was found on the floor this morning by visiting nurse. The patient was placed back into her chair and was able to eat normally but throughout the day the family noticed that she has been more and more confused. The patient did not have any focal neurologic deficits but her mental status appeared somewhat diminished. The patient's daughters noticed that this is not her baseline. The patient did not have any acute abnormality noted on CT the head or neck. She had an elevated white blood cell count as well as elevated inflammatory markers. No signs of pneumonia were noted on chest x-ray and her urinalysis did not reveal signs of infection. For this reason CT the abdomen and pelvis was obtained which did show an enlarged gallbladder with signs of gallstones. There is no definite signs of cholecystitis but given the patient' s elevated white blood cell count and physical exam I do feel this could be consistent with cholecystitis. She was treated with IV antibiotics and IV fluids. I discussed the patient's laboratory and radiographic studies with her family members. I also discussed her case with the on-call general surgeon as well as the on-call [facility] hospitalist. They have agreed to evaluate the patient for further management and disposition. The patient may require further studies to determine if this does represent a cholecystitis. Impression & Plan Acute cholecystitis, Weakness, Acute alteration in mental status Discharge Plan Visit Data *Final* Discharge Date/Time: 05/10/18 02:14 Chief Complaint: Confusion Stated Complaint: weakness ED Provider: Lamberto Michaels Discharge Problem: Acute cholecystitis, Weakness, Acute alteration in mental status Patient Disposition: Admitted As Inpatient Discharge Instructions Interventions: ED Discharge Assessment Last Done: 05/10/18 02:14 The scribe's documentation has been prepared under my direction and personally reviewed by me in its entirety. I confirm that the note above accurately reflects all work, treatment, procedures, and medical decision making performed by me.
--- NOTE | 2018-05-09 18:52 | XRay Report ---
XR pelvis 1-2V routine CLINICAL HISTORY: 82 years-old Female presenting with fall. TECHNIQUE: Single frontal view of the pelvis was obtained. COMPARISON: . FINDINGS: Bilateral total hip arthroplasties again noted. Osteopenia. This limits evaluation for nondisplaced f racture. No gross evidence of a periprosthetic fracture or other hardware complication. Sacroiliac andres ints and pubic symphysis congruent. Arcuate lines of the sacrum grossly intact. Bony pelvis intact. D egenerative changes of the lower lumbar spine. IMPRESSION: Allowing for the degree of osteopenia, no acute osseous injury of the pelvis. Electronically signed by: Bo Bullard M.D. 05/09/2018 6:50 PM
--- NOTE | 2018-05-09 18:53 | XRay Report ---
XR chest 1V portable CLINICAL HISTORY: 82 years-old Female presenting with weakness. TECHNIQUE: Portable upright AP view of the chest was obtained. COMPARISON: 01/20/2018. FINDINGS: Atherosclerosis of the aortic arch. Cardiac silhouette top normal in size. No focal opacity. No large effusion or pneumothorax. Degenerative changes of the thoracic spine. Degenerative changes of the gl enohumeral joints, left greater than right. IMPRESSION: 1. No acute cardiopulmonary disease. Electronically signed by: Bo Bullard M.D. 05/09/2018 6:52 PM
--- NOTE | 2018-05-09 18:55 | XRay Report ---
XR shoulder RT min 2V routine CLINICAL HISTORY: 82 years-old Female presenting with fall. TECHNIQUE: Internal rotation, external rotation, Grashey views of the right shoulder were obtained. COMPARISON: Correlation made to chest x-ray from 01/20/2018. FINDINGS: Inferior osteophytosis at the humeral head with mid to inferior joint space loss at the glenohumeral joint. A lesser degree of osteophytosis is noted at the inferior aspect of the bony glenoid. Acromioc lavicular joint congruent. Evaluation is limited by suboptimal internal rotation view. Allowing for t his, no acute fracture or subluxation. Suspected underlying osteopenia. IMPRESSION: Evaluation is limited by suboptimal internal rotation view. 1. No acute osseous injury. 2. Degenerative changes of the glenohumeral joint with joint space loss. Electronically signed by: Bo Bullard M.D. 05/09/2018 6:54 PM
[2018-05-09 19:05] LABS: Basophils # (auto) 0.03 K/uL (0-0.2); Basophils % (auto) 0.2 %; Eosinophils # (auto) 0.14 K/uL (0-0.5); Eosinophils % (auto) 0.9 %; Hematocrit (blood only) 43.2 % (37-47); Immature Granulocytes # (auto) 0.04 K/uL (0.00-0.02); Immature Granulocytes % (auto) 0.3 %; Lymphocytes # (auto) 1.64 K/uL (1.2-3.4); Lymphocytes % (auto) 11.1 %; Mean Corpuscular Hgb Conc 32.4 g/dL (32-36); Mean Corpuscular Volume 86.4 fL (80-100); Mean Platelet Volume 10.7 fL (7.4-10.4); Monocytes # (auto) 1.05 K/uL (0.11-0.59); Monocytes % (auto) 7.1 %; Neutrophils # (auto) 11.92 K/uL (1.4-6.5); Neutrophils % (auto) 80.4 %; Platelet Count 279 K/uL (130-400); RDW Coefficient of Variation 16.6 % (11.5-14.5); RDW Standard Deviation 52.6 fL (36.4-46.3); White Blood Count 14.82 K/uL (4.8-10.8)
--- NOTE | 2018-05-09 19:16 | CT Scan Report ---
CT head/brain wo con CLINICAL HISTORY: 82 years-old Female presenting with weakness. TECHNIQUE: Multidetector CT imaging of the head was performed without the use of intravenous contrast . IV contrast: None. One or more dose lowering techniques were used consistent with the principles of ALARA (as low as reasonably achievable), including automatic exposure control, mA or kV adjustment t o individual patient size, and/or use of iterative reconstruction. COMPARISON: 02/08/2016. CT DOSE (mGy.cm): The estimated cumulative dose is 976.58 mGy.cm. FINDINGS: Ladle Cleaner topogram: Unremarkable. Ventricles and sulci normal in size. No hemorrhage. Periventricular and subcortical white matter hypo attenuation, nonspecific but likely indicative of chronic small vessel ischemic change. No acute terr itorial infarct. No mass effect or midline shift. No extra-axial fluid collection. Paranasal sinuses and mastoid air cells clear. Calvarium intact. IMPRESSION: 1. Chronic small vessel ischemic change. No acute intracranial abnormality. Electronically signed by: Bo Bullard M.D. 05/09/2018 7:15 PM
[2018-05-09 19:22] LABS: Alanine Aminotransferase 16 U/L (12-78); Albumin Level 3.4 gm/dl (3.4-5.0); Aspartate Aminotransferase 15 U/L (15-37); BUN Creatinine Ratio 13.2 (10-20); Blood Urea Nitrogen 14 mg/dl (7-18); C Reactive Protein 8.19 mg/dl (0-0.29); Calcium 9.8 mg/dl (8.5-10.1); Carbon Dioxide 26 mmol/L (21-32); Chloride 102 mmol/L (98-107); Est GFR (African American) 56.8; Glucose 92 mg/dl (70-99); Potassium 3.9 mmol/L (3.5-5.1); Sodium 137 mmol/L (136-145)
--- NOTE | 2018-05-09 19:22 | CT Scan Report ---
CT cervical spine wo con CLINICAL HISTORY: 82 years-old Female presenting with fall. TECHNIQUE: Multidetector CT of the cervical spine was performed without the use of intravenous contra st. IV contrast: None. One or more dose lowering techniques were used consistent with the principles of ALARA (as low as reasonably achievable), including automatic exposure control, mA or kV adjustment to individual patient size, and/or use of iterative reconstruction. COMPARISON: 08/09/2015. CT DOSE (mGy.cm): The estimated cumulative dose is 976.58. FINDINGS: Interlocker Maintainer topogram: Unremarkable. Normal cervical lordosis at vertebral bodies grossly maintain normal height and alignment. Advanced d egenerative changes with multilevel moderate to severe intervertebral disc height loss from C4-5 thro ugh C7-T1. Disc osteophyte complexes at these levels with mild to moderate posterior bony spurring gr eatest at C5-6 and C6-7. Varying degrees of osseous neural foraminal narrowing. No acute fracture or subluxation. Paraspinal soft tissues normal. IMPRESSION: 1. No acute osseous injury of the cervical spine. 2. Multilevel degenerative changes of the cervical spine. Electronically signed by: Bo Bullard M.D. 05/09/2018 7:21 PM
[2018-05-09 19:31] LABS: Albumin Globulin Ratio 0.8 (0.9-2); Alkaline Phosphatase 118 U/L (45-117); Bilirubin,Total 0.6 mg/dl (0.2-1); Creatine Kinase 233 U/L (26-192); Creatine Kinase MB 2.6 ng/ml (0.5-3.6); Globulin 4.3 gm/dl (2.5-4.0); Total Protein 7.7 gm/dl (6.4-8.2); Troponin I < 0.015 ng/ml (0-0.045)
[2018-05-09 19:47] LABS: Appearance Urine Clear (Clear); Bilirubin Urine Negative (Negative); Color Urine Yellow; Glucose Urine UA Negative (Negative); Ketones Urine Negative (Negative); Leukocyte Esterase Urine Negative (Negative); Nitrite Urine Negative (Negative); Protein Urine Negative (Negative); Urobilinogen Urine Negative (Negative); pH Urine 5.5 (4.5-7.5)
[2018-05-09 20:11] LABS: Partial Thromboplastin Time 26.2 Seconds (21.0-31.0); Prothrombin Time 10.4 Seconds (9.0-12.0)
[2018-05-09] MEDS ORDERED: IOVERSOL 100ml IV PRN (20:45)
--- NOTE | 2018-05-09 20:59 | CT Scan Report ---
CT abd pelvis IV con only CLINICAL HISTORY: 82 years-old Female presenting with altered MS, high WBC. TECHNIQUE: Multidetector CT of the abdomen and pelvis was performed after the administration of intra venous contrast. IV contrast: 95 mL of Optiray 320. One or more dose lowering techniques were used co nsistent with the principles of ALARA (as low as reasonably achievable), including automatic exposure control, mA or kV adjustment to individual patient size, and/or use of iterative reconstruction. COMPARISON: 02/14/2016. CT DOSE (mGy.cm): The estimated cumulative dose is 1636.71 mGy.cm. FINDINGS: Waste Paper Hammermill Operator topogram: Bilateral total hip arthroplasties. Lung bases: Subpleural groundglass opacity in the lateral basal right lower lobe may be postinfectiou s or postinflammatory versus scarring. Normal heart size. No pericardial or pleural effusion. Liver: Normal morphology. No liver lesion. Patent hepatic vasculature. Biliary: Mild central intrahepatic and extra hepatic biliary ductal prominence as on prior exam. Gall bladder contains numerous gallstones and is distended, possibly on a physiologic basis. No convincing evidence of pathologic wall thickening. No pericholecystic fluid or inflammatory change. Importantly , no evidence of tension on the overlying abdominal wall. Pancreas: Moderate parenchymal atrophy. Spleen: Normal. Adrenal glands: Normal. Kidneys and ureters: Normal. No hydronephrosis. Ureters nondilated. Distal ureters poorly evaluated g iven extensive streak artifact. Bladder: Poorly evaluated secondary to extensive streak artifact. Ligamentous laxity suggested by the bladder configuration. Pelvic organs: Uterus surgically absent. No adnexal masses. Atrophic ovaries. Bowel: Diverticulosis of the mid to distal sigmoid colon without wall thickening or pericolonic infla mmatory change. Few colonic diverticula noted in the ascending colon. The appendix may be absent thou gh the cecum is poorly evaluated due to streak artifact. No bowel obstruction. Peritoneal cavity: No free fluid or intraperitoneal gas. Lymph nodes: No enlarged lymph nodes in the abdomen or pelvis. Vasculature: Atherosclerosis of the normal caliber abdominal aorta. IVC patent. Abdominal wall: Postsurgical changes of the infraumbilical midline abdominal wall. Musculoskeletal: Bilateral total hip arthroplasty. Osteopenia. Degenerative changes of the spine. IMPRESSION: 1. Distended gallbladder with extensive gallstones. No convincing evidence of tension or cholecystit is at this time. If there is clinical ambiguity, nuclear medicine HIDA scan could be obtained. 2. Streak artifact arising from the bilateral total hip arthroplasties degrade evaluation of the pel vis. The appendix is not visualized, which may be result of artifact or absence on a surgical basis. 3. Diverticulosis. No evidence of diverticulitis. Electronically signed by: Bo Bullard M.D. 05/09/2018 8:58 PM
[2018-05-09] MEDS ORDERED: PIPERACILL/TAZOBAC CONSULT ACTIVE PRN (21:12)
[2018-05-09] MEDS ORDERED: PIPERACILLIN/TAZOBACTAM 4.5 GM/120 ML BAG IV ONE (21:12)
[2018-05-09] MEDS ORDERED: SODIUM CHLORIDE 0.9% 1000ML 500 ML IV ONE (21:12)
[2018-05-09] MEDS ORDERED: AMLODIPINE BESYLATE 5 MG TAB PO ONE (21:36)
--- NOTE | 2018-05-09 22:18 | History & Physical Report ---
Date of Service May 09, 2018 Assessment & Plan (1) Gallbladder calculus without cholecystitis and no obstruction: This is a 82-year-old female with significant past medical history of dementia, moderate COPD, hypertension, hypothyroidism, CKD stage III, anxiety who presents to [facility] secondary to fall times 1 day. In ED subsequently during workup of fall CT of abdomen pelvis revealed distended gallbladder with extensive gallstones without evidence of cholecystitis. Trauma workup was otherwise unremarkable, no acute fracture. Further workup revealed CRP 8.19, elevated ESR, CK 233, LFTs WNL and leukocytosis at 14.82. Urinalysis was unremarkable. Given leukocytosis and inflammatory marker elevation with findings on CT scan concerning for distended gallbladder and gallstones patient is being admitted for further workup as potential cause of weakness. In ED patient received 1 L IV fluid as well as 4.5 g IV Zosyn. General Surgery contacted via ER provider requesting HIDA in a.m. Please refer to Dr. Rider addendum for further assessment and treatment plan (2) Weakness: (3) Hypertension: -blood pressure elevated on admission, received dose of amlodipine 2.5mg -continue amlodipine along with BB and monitor (4) Dementia: -continue namenda and rivastigmine -no behavioral disturbance (5) Hypothyroidism: -continue levothyroxine, TSH 1.55 (6) GERD (gastroesophageal reflux disease): -continue PPI (7) COPD (chronic obstructive pulmonary disease): -no acute exac, continue albuterol prn (8) CKD (chronic kidney disease), stage III: -renal fxn at baseline BUN 14/Cr 1.07 -monitor bmp (9) Hyperparathyroidism due to renal insufficiency: -continue calcitriol Patient was seen in collaboration with Dr. Rider, please see addendum History of Present Illness Chief Complaint: S/P fall x 1 day. Primary Care Provider: Ivan Monson MD This is a 82-year-old female with significant past medical history of dementia, moderate COPD, hypertension, hypothyroidism, CKD stage III, anxiety who presents to [facility] secondary to fall times 1 day. Daughters are at bedside. History mostly obtained from daughters secondary to patient's underlying dementia. Apparently patient lives at home alone with caregiver coming twice daily and family stopping in. When caregiver came to check on patient today she was sitting on floor at bedside. Patient does not recall falling and currently denies any pain. Unknown if syncopal event versus mechanical fall. Patient does elicit she has chronic right shoulder pain secondary to bursitis. Daughter does elicit increased weakness over the past 3 weeks. Pt with known dementia but family feels today her cognition is worse, "saying things she never has said in the past." Patient ambulates with walker. Denies recent illness or URI. She denies fever, chills, sweats, lightheadedness , dizziness, chest pain, shortness of breath at rest, nausea, vomiting, diarrhea , abdominal pain, dysuria, increased urgency or frequency with urination, hematuria, hemoptysis, hematochezia, melena. ROS slightly unreliable given patient's underlying cognitive status. Per family patient eats well when food is presented to her. Allergies Allergy/AdvReac Type Severity Reaction Status Date / Time latex Allergy Mild RASH Verified 04/22/17 11:53 donepezil Allergy Unknown NIGHTMARES Verified 04/22/17 11:53 NSAIDS (Non-Steroidal Allergy Unknown NOT TO Verified 01/20/18 16:06 Anti-Inflamma TAKE DUE TO KIDNEY CHANGES Home Medications Home Medications Medication Instructions Recorded Confirmed Type albuterol sulfate [Proventil HFA] 2 puff INHALATION Q6H PRN 01/20/18 05/09/18 History amlodipine 2.5 mg PO DAILY 01/20/18 05/09/18 History bisoprolol fumarate 10 mg PO QAM 01/20/18 05/09/18 History calcitriol 0.25 mcg PO DAILY 01/20/18 05/09/18 History calcium carbonate [Calcium 600] 600 mg PO DAILY 01/20/18 05/09/18 History cholecalciferol (vitamin D3) 5,000 units PO DAILY 01/20/18 05/09/18 History [Vitamin D3] clonazepam 0.5 mg PO BID PRN 01/20/18 05/09/18 History ferrous sulfate 325 mg PO BID 01/20/18 05/09/18 History fluoxetine 60 mg PO QAM 01/20/18 05/09/18 History levothyroxine 75 mcg PO QAM 01/20/18 05/09/18 History memantine 10 mg PO BID 01/20/18 05/09/18 History montelukast 10 mg PO QAM 01/20/18 05/09/18 History omeprazole 20 mg PO QAM 01/20/18 05/09/18 History rivastigmine tartrate 3 mg PO BID 01/20/18 05/09/18 History rosuvastatin 5 mg PO QPM 01/20/18 05/09/18 History magnesium chloride [Slow-Mag] 71.5 mg PO DAILY 05/09/18 05/09/18 History Past Med/Surg History Medical History Hypertension (Chronic) Dementia (Chronic) Hypothyroidism (Chronic) GERD (gastroesophageal reflux disease) (Chronic) COPD (chronic obstructive pulmonary disease) (Chronic) CKD (chronic kidney disease), stage III (Chronic) 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, 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) Surgical History S/P tonsillectomy (Chronic) S/P appendectomy (Chronic) S/P laminectomy (Chronic) History of bladder surgery (Chronic) S/P cataract surgery (Chronic) S/P RAMYA (total abdominal hysterectomy) (Chronic) Total replacement of hip (Chronic) Status post hysterectomy (Chronic) Family History Other Family history non-contributory Social History marital status: Current Living Situation: Alone Current Living Situation Comment: home with caregivers Other Information That Helps Us Care for You: No Feels Safe at Home: Yes Safety Concerns: Feels Safe At This Time Smoking Status: Former smoker Do You Dip or Chew Tobacco: No Second Hand Exposure: No Tobacco Cessation Education Requested by Patient: No Hx Alcohol Use: No Hx Substance Use: No Beliefs That Will Affect Care: None Preferred Language: Romanian Communication Ability: Effective High School Social Studies Tutor Required: No Review of Systems All systems reviewed & are unremarkable except as noted in HPI & below and Other ROS unreliable given patients cognitive status Physical Exam 2 Vital Signs (Past 24 Hours): Last Vital Signs Temp 36.8 C 05/09/18 19:14 Pulse 86 05/09/18 21:52 Resp 24 05/09/18 21:52 BP 164/86 H 05/09/18 21:52 Pulse Ox 94 05/09/18 21:52 Physical Exam: Gen: Morbidly obese, elderly,F, NAD, lying in bed, pleasant, conversing easily but pleasantly confused Head: Normocephalic, Atraumatic Eyes: Sclera normal, no conjunctival injection, PERRLA, EOMI ENT: Gross hearing intact, normal pharynx, mucous membranes dry Neck: supple, no adenopathy, No JVD, no bruit, Resp: Clear to auscultation b/l, no wheeze, rales, rhonchi. Normal insp/exp effort, no accessory muscle use CV: Regular rate, regular rhythm, no murmur, rub, gallop, or ectopy Abd: +BS x 4, soft, nontender, distended secondary to obesity, negative mcgarry sign, no rebound, guarding Musculoskeletal: moves extremities active rom x 3, decrease ROM to RUE/shoulder due to pain, good optical designer strength Extremities: No edema bilaterally, pedal pulse +1 equal Skin: warm, moist, no rash, negative turgor, cap refill < 2sec Neuro: Alert and oriented x 3, speech normal, good mood/affect, cran nerve 2-12 intact grossly : deferred Results & Data Laboratory Results Short CBC 05/09/18 Range/Units 18:46 WBC 14.82 H (4.8-10.8) K/uL Hgb 14.0 (12.0-16.0) g/dL Hct 43.2 (37-47) % Plt Count 279 (130-400) K/uL BMP 05/09/18 18:46 Sodium 137 Potassium 3.9 Chloride 102 Carbon Dioxide 26 BUN 14 Creatinine 1.07 Glucose 92 Calcium 9.8 Cardiac Enzymes 05/09/18 Range/Units 18:46 Total Creatine Kinase 233 H (26-192) U/L CK-MB (CK-2) 2.6 (0.5-3.6) ng/ml Troponin I < 0.015 (0-0.045) ng/ml Liver Function 05/09/18 Range/Units 18:46 Total Bilirubin 0.6 (0.2-1) mg/dl AST 15 (15-37) U/L ALT 16 (12-78) U/L Alkaline Phosphatase 118 H (45-117) U/L Albumin 3.4 (3.4-5.0) gm/dl Urine 05/09/18 Range/Units 19:31 Urine Color Yellow Urine Appearance Clear (Clear) Urine pH 5.5 (4.5-7.5) Ur Specific [place] 1.010 (1.000-1.030) Urine Protein Negative (Negative) Urine Glucose (UA) Negative (Negative) Diagnostic Findings CT abd/pelvis: IMPRESSION: 1. Distended gallbladder with extensive gallstones. No convincing evidence of tension or cholecystitis at this time. If there is clinical ambiguity, nuclear medicine HIDA scan could be obtained. 2. Streak artifact arising from the bilateral total hip arthroplasties degrade evaluation of the pelvis. The appendix is not visualized, which may be result of artifact or absence on a surgical basis. 3. Diverticulosis. No evidence of diverticulitis. Shoulder Xray: IMPRESSION: Evaluation is limited by suboptimal internal rotation view. 1. No acute osseous injury. 2. Degenerative changes of the glenohumeral joint with joint space loss. Pelvis Xray: IMPRESSION: Allowing for the degree of osteopenia, no acute osseous injury of the pelvis. Head CT: IMPRESSION: 1. Chronic small vessel ischemic change. No acute intracranial abnormality. Cspine CT: IMPRESSION: 1. No acute osseous injury of the cervical spine. 2. Multilevel degenerative changes of the cervical spine. CXR: IMPRESSION: 1. No acute cardiopulmonary disease. ECG Rate (beats per minute): 74 Rhythm: sinus rhythm Additional Comments: QTC [id number] Supervising Physician Co-Signing Physician Notes IM ATTENDING : Patient seen and examined. History obtained from patient and records. Preceding documentation by Ms. Susy Valero PA-C reviewed. FINAL ASSESSMENT AND PLAN as follows : Unwitnessed fall Possible syncopal event Rule out orthostasis, cardiac dysfunction Abdominal tenderness as per ER provider with gallbladder calculus on CT rule out cholecystitis, patient not septic Hypertension, elevated hx dementia History COPD,, past tobacco abuse Stable respiratory status at time of exam OBS Medical telemetry RE possible syncope Check orthostatic vitals TTE RE syncope N.p.o. sips until cholecystitis ruled out by HIDA scan in a.m. PT OT eval DVT prophylaxis. SCDs until cholecystitis ruled out Initiate Lovenox 30 mg subcutaneous daily for pharmacologic prophylaxis once cholecystitis ruled out. Full code as per daughters. Ms. Tamiko Sung, contact number [phone]. Ms. Lorenzo Vinson, contact #[phone]/ [phone] _ (1) Dementia Dementia behavioral disturbance: without behavioral disturbance Dementia type : vascular dementia Qualified Code(s): F01.50 - Vascular dementia without behavioral disturbance (2) Hypothyroidism Hypothyroidism type: unspecified Qualified Code(s): E03.9 - Hypothyroidism, unspecified (3) COPD (chronic obstructive pulmonary disease) COPD type: unspecified COPD Qualified Code(s): J44.9 - Chronic obstructive pulmonary disease, unspecified (4) GERD (gastroesophageal reflux disease) Esophagitis presence: without esophagitis Qualified Code(s): K21.9 - Gastro- esophageal reflux disease without esophagitis (5) Hypertension Hypertension type: essential hypertension Qualified Code(s): I10 - Essential (primary) hypertension
[2018-05-10] MEDS ORDERED: PROCHLORPERAZINE 5 MG in SYRINGE 4 ML IV PRN (02:34)
[2018-05-10] MEDS ORDERED: TRAMADOL HCL 50 MG TABLET PO PRN (02:34)
[2018-05-10] MEDS ORDERED: OLANZapine 10 MG/2.1 ML SDV IM PRN (02:34)
[2018-05-10] MEDS: D5NSS + 20MEQ KCL 20 MEQ/1,000 ML BAG IV SCH ×2 (05:07→19:23)
[2018-05-10] MEDS: LEVOTHYROXINE SODIUM 75 MCG TABLET PO SCH (05:07)
[2018-05-10 07:09] LABS: Basophils # (auto) 0.01 K/uL (0-0.2); Basophils % (auto) 0.1 %; Eosinophils # (auto) 0.33 K/uL (0-0.5); Eosinophils % (auto) 3.2 %; Hematocrit (blood only) 39.8 % (37-47); Hemoglobin 12.7 g/dL (12.0-16.0); Immature Granulocytes # (auto) 0.02 K/uL (0.00-0.02); Immature Granulocytes % (auto) 0.2 %; Lymphocytes # (auto) 1.91 K/uL (1.2-3.4); Lymphocytes % (auto) 18.6 %; Mean Corpuscular Hgb Conc 31.9 g/dL (32-36); Mean Corpuscular Volume 86.3 fL (80-100); Mean Platelet Volume 11.1 fL (7.4-10.4); Monocytes # (auto) 0.82 K/uL (0.11-0.59); Neutrophils % (auto) 69.9 %; Platelet Count 254 K/uL (130-400); RDW Standard Deviation 53.2 fL (36.4-46.3); Red Blood Count 4.61 M/uL (4.2-5.4); White Blood Count 10.29 K/uL (4.8-10.8)
[2018-05-10 07:46] LABS: Albumin Level 2.7 gm/dl (3.4-5.0); BUN Creatinine Ratio 11.1 (10-20); Calcium 9.1 mg/dl (8.5-10.1); Creatinine Clr Calc Pharmacy 52.6 ml/min; Est GFR (African American) 63.9; Est GFR (Non-African American) 55.2; Potassium 3.7 mmol/L (3.5-5.1)
[2018-05-10 07:49] LABS: Albumin Globulin Ratio 0.7 (0.9-2); Bilirubin,Total 0.7 mg/dl (0.2-1); Globulin 3.8 gm/dl (2.5-4.0); Total Protein 6.5 gm/dl (6.4-8.2)
--- NOTE | 2018-05-10 08:57 | Consultation Report ---
DATE OF CONSULTATION: 05/10/2018 ORTHOPEDIC CONSULTATION CHIEF COMPLAINT: Right shoulder pain. HISTORY OF PRESENT ILLNESS: The patient is an 82-year-old female with multiple medical comorbidities with some underlying dementia who was admitted yesterday for workup for cholecystitis. She is a patient well known to our practice as I did then a left hip replacement on her about [address] Fleming recently saw her just a month ago for some right shoulder pain. She has had some falls apparently. She did have a workup in the Emergency Room with multiple x-rays, which showed no signs of fracture. She is admitted for possible cholecystitis. We are consulted for her shoulder. On questioning the patient this morning, she denies any significant pain. Denies any shoulder pain. However, when asking to move her shoulder, she does report some discomfort laterally. PAST MEDICAL HISTORY: As per the admission H and P. OBJECTIVE: VITAL SIGNS: Temperature is 36.5. Vital signs are stable. PHYSICAL EXAMINATION: General musculoskeletal exam reveals no obvious bruising or swelling areas. She has got painless range of motion of her neck and spine. She has painless range of motion of the left shoulder, arm and elbow as well as both lower extremities. She can do a straight leg raise on both sides. Examination of the right shoulder reveals no bruising or swelling. She does seem to have some pain with elevation. She can move her arm appropriately. She is neurologically intact. X-RAYS: X-rays of the right shoulder were reviewed. It shows some fairly mild glenohumeral joint arthritis. There are no signs of fracture. She has got diffuse osteopenia. Pelvis x-ray was also reviewed. It shows the evidence of bilateral hip replacements. No signs of apparent problems. No obvious or apparent fractures. ASSESSMENT: An 82-year-old female status post several falls and some underlying dementia, admitted for a workup for cholecystitis, with some right shoulder pain most consistent with rotator cuff pathology and a little bit of arthritis. She does not seem markedly uncomfortable now. She just had a shot in her shoulder just a month ago by Dr. Fleming. PLAN: At this point, there is really no orthopedic intervention warranted. She can get a shot in her shoulder every 3 months, but it is too early to consider that now and she does not seem to be in that much pain. I do not see any new focal areas of major trauma. Any orthopedic questions can be directed to me at [phone].
--- NOTE | 2018-05-10 10:40 | Surgery Consultation ---
Date of Consultation May 10, 2018 Assessment & Plan (1) Gallbladder calculus without cholecystitis and no obstruction: 82-year-old female status post fall found down by family, surgery consulted over suspicion for possible cholecystitis. At this point her white blood cell count is normalized, she has no abdominal pain, and there is no tenderness in the right upper quadrant. HIDA scan was recommended overnight and is pending. No compelling evidence for acute cholecystitis at this time Proceed with HIDA scan, we will await the results Continue n.p.o. until HIDA scan results Surgery will continue to follow, call with questions or concerns Present on Admission?: Yes (2) Dementia: (3) Weakness: History of Present Illness Attending Physician: Joshua Burris MD History of Present Illness 82-year-old female presented to the emergency department after being brought in by her family when they found her laying on the ground. She has a history of dementia and is a poor historian. No family is present during our exam. She is brought into the emergency department where she was noted to have a white count of 14,000. She had a CT scan of her abdomen and pelvis which was overall unremarkable except for an enlarged gallbladder with some gallstones, but no signs of cholecystitis. She was admitted to the hospitalist service and surgery was consulted to evaluate for possible cholecystitis as a source of her fall and leukocytosis. This morning she states she is doing well, denies any pain, specifically denies any abdominal pain. She denies any history of pain after eating. She was not sure why she was here until reminded her that she had fallen. Allergies Allergy/AdvReac Type Severity Reaction Status Date / Time latex Allergy Mild RASH Verified 04/22/17 11:53 donepezil Allergy Unknown NIGHTMARES Verified 04/22/17 11:53 NSAIDS (Non-Steroidal Allergy Unknown NOT TO Verified 01/20/18 16:06 Anti-Inflamma TAKE DUE TO KIDNEY CHANGES Home Medications Home Medications Medication Instructions Recorded Confirmed Type albuterol sulfate [Proventil HFA] 2 puff INHALATION Q6H PRN 01/20/18 05/09/18 History amlodipine 2.5 mg PO DAILY 01/20/18 05/09/18 History bisoprolol fumarate 10 mg PO QAM 01/20/18 05/09/18 History calcitriol 0.25 mcg PO DAILY 01/20/18 05/09/18 History calcium carbonate [Calcium 600] 600 mg PO DAILY 01/20/18 05/09/18 History cholecalciferol (vitamin D3) 5,000 units PO DAILY 01/20/18 05/09/18 History [Vitamin D3] clonazepam 0.5 mg PO BID PRN 01/20/18 05/09/18 History ferrous sulfate 325 mg PO BID 01/20/18 05/09/18 History fluoxetine 60 mg PO QAM 01/20/18 05/09/18 History levothyroxine 75 mcg PO QAM 01/20/18 05/09/18 History memantine 10 mg PO BID 01/20/18 05/09/18 History montelukast 10 mg PO QAM 01/20/18 05/09/18 History omeprazole 20 mg PO QAM 01/20/18 05/09/18 History rivastigmine tartrate 3 mg PO BID 01/20/18 05/09/18 History rosuvastatin 5 mg PO QPM 01/20/18 05/09/18 History magnesium chloride [Slow-Mag] 71.5 mg PO DAILY 05/09/18 05/09/18 History Patient History Medical History Hypertension (Chronic) Dementia (Chronic) Hypothyroidism (Chronic) GERD (gastroesophageal reflux disease) (Chronic) COPD (chronic obstructive pulmonary disease) (Chronic) CKD (chronic kidney disease), stage III (Chronic) 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, 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) Surgical History S/P tonsillectomy (Chronic) S/P appendectomy (Chronic) S/P laminectomy (Chronic) History of bladder surgery (Chronic) S/P cataract surgery (Chronic) S/P RAMYA (total abdominal hysterectomy) (Chronic) Total replacement of hip (Chronic) Status post hysterectomy (Chronic) Family History Other Family history non-contributory Social History marital status: Current Living Situation: Alone Current Living Situation Comment: home with caregivers Other Information That Helps Us Care for You: No Feels Safe at Home: Yes Safety Concerns: Feels Safe At This Time Smoking Status: Former smoker Do You Dip or Chew Tobacco: No Second Hand Exposure: No Tobacco Cessation Education Requested by Patient: No Hx Alcohol Use: No Hx Substance Use: No Beliefs That Will Affect Care: None Preferred Language: Swazi Communication Ability: Effective Telephone Sales Representative Required: No Review of Systems 10 point review of systems negative except as above Physical Exam 2 Vital Signs (Past 24 Hours): Last Vital Signs Temp 36.5 C 05/10/18 07:00 Pulse 69 05/10/18 07:00 Resp 18 05/10/18 07:00 BP 143/79 H 05/10/18 07:00 Pulse Ox 94 05/10/18 07:00 Constitutional: WD/WN, vitals as above Eyes: PERRL, conjunctivae normal, anicteric sclerae ENMT: external ear and nose normal, oropharynx normal Neck: trachea midline, no thyromegaly Respiratory: normal respiratory effort, lungs clear to auscultation Cardiovascular: RRR, no murmur, no edema Gastrointestinal (Abdomen): normal bowel sounds, soft, nontender, no hepatosplenomegaly Musculoskeletal: no cyanosis or clubbing, extremities motor strength 5/5 Skin: no rashes, warm and dry Neurologic: PERRL, EOMI, accommodation nl, no face palsy, no dysarthria Psychiatric: Orientation: alert Speech: normal rate/rhythm/volume of speech Dementia, somewhat forgetful Lymphatic: no cervical or axillary lymphadenopathy Results & Data Laboratory Results Laboratory Results - last 24 hr 05/09/18 05/09/18 05/09/18 18:46 18:46 18:46 WBC 14.82 H RBC 5.00 Hgb 14.0 Hct 43.2 MCV 86.4 MCH 28.0 MCHC 32.4 RDW Std Deviation 52.6 H RDW Coeff of Stalin 16.6 H Plt Count 279 MPV 10.7 H Immature Gran % (Auto) 0.3 Neut % (Auto) 80.4 Lymph % (Auto) 11.1 [place] % (Auto) 7.1 Eos % (Auto) 0.9 Baso % (Auto) 0.2 Immature Gran # (Auto) 0.04 H Neut # (Auto) 11.92 H Lymph # (Auto) 1.64 [place] # (Auto) 1.05 H Eos # (Auto) 0.14 Baso # (Auto) 0.03 ESR > 90 H PT Cancelled INR Cancelled APTT Cancelled PTT Ratio Cancelled Sodium Potassium Chloride Carbon Dioxide Anion Gap BUN Creatinine Est Cr Clr Drug Dosing Est GFR ( Amer) Est GFR (Non-Af Amer) BUN/Creatinine Ratio Glucose Calcium Magnesium Total Bilirubin AST ALT Alkaline Phosphatase Total Creatine Kinase CK-MB (CK-2) CK/CKMB % Calc Troponin I C-Reactive Protein Total Protein Albumin Globulin Albumin/Globulin Ratio Lipase Procalcitonin TSH Urine Color Urine Appearance Urine pH Ur Specific [place] Urine Protein Urine Glucose (UA) Urine Ketones Urine Blood Urine Nitrite Urine Bilirubin Urine Urobilinogen Ur Leukocyte Esterase 05/09/18 05/09/18 05/09/18 18:46 19:31 19:53 WBC RBC Hgb Hct MCV MCH MCHC RDW Std Deviation RDW Coeff of Stalin Plt Count MPV Immature Gran % (Auto) Neut % (Auto) Lymph % (Auto) [place] % (Auto) Eos % (Auto) Baso % (Auto) Immature Gran # (Auto) Neut # (Auto) Lymph # (Auto) [place] # (Auto) Eos # (Auto) Baso # (Auto) ESR PT 10.4 INR 1.0 APTT 26.2 PTT Ratio 1.0 Sodium 137 Potassium 3.9 Chloride 102 Carbon Dioxide 26 Anion Gap 9.0 BUN 14 Creatinine 1.07 Est Cr Clr Drug Dosing Not Reportable Est GFR ( Amer) 56.8 Est GFR (Non-Af Amer) 49.0 BUN/Creatinine Ratio 13.2 Glucose 92 Calcium 9.8 Magnesium 2.0 Total Bilirubin 0.6 AST 15 ALT 16 Alkaline Phosphatase 118 H Total Creatine Kinase 233 H CK-MB (CK-2) 2.6 CK/CKMB % Calc 1.1 Troponin I < 0.015 C-Reactive Protein 8.19 H Total Protein 7.7 Albumin 3.4 Globulin 4.3 H Albumin/Globulin Ratio 0.8 L Lipase 101 Procalcitonin TSH 1.550 Urine Color Yellow Urine Appearance Clear Urine pH 5.5 Ur Specific [place] 1.010 Urine Protein Negative Urine Glucose (UA) Negative Urine Ketones Negative Urine Blood Negative Urine Nitrite Negative Urine Bilirubin Negative Urine Urobilinogen Negative Ur Leukocyte Esterase Negative 05/09/18 05/10/18 05/10/18 21:50 06:33 06:33 WBC 10.29 RBC 4.61 Hgb 12.7 Hct 39.8 MCV 86.3 MCH 27.5 MCHC 31.9 L RDW Std Deviation 53.2 H RDW Coeff of Stalin 17.0 H Plt Count 254 MPV 11.1 H Immature Gran % (Auto) 0.2 Neut % (Auto) 69.9 Lymph % (Auto) 18.6 [place] % (Auto) 8.0 Eos % (Auto) 3.2 Baso % (Auto) 0.1 Immature Gran # (Auto) 0.02 Neut # (Auto) 7.20 H Lymph # (Auto) 1.91 [place] # (Auto) 0.82 H Eos # (Auto) 0.33 Baso # (Auto) 0.01 ESR PT INR APTT PTT Ratio Sodium 138 Potassium 3.7 Chloride 106 Carbon Dioxide 27 Anion Gap 5.0 BUN 11 Creatinine 0.97 Est Cr Clr Drug Dosing 52.6 Est GFR ( Amer) 63.9 Est GFR (Non-Af Amer) 55.2 BUN/Creatinine Ratio 11.1 Glucose 99 Calcium 9.1 Magnesium Total Bilirubin 0.7 AST 13 L ALT 13 Alkaline Phosphatase 99 Total Creatine Kinase 151 CK-MB (CK-2) CK/CKMB % Calc Troponin I C-Reactive Protein Total Protein 6.5 Albumin 2.7 L Globulin 3.8 Albumin/Globulin Ratio 0.7 L Lipase Procalcitonin < 0.05 TSH Urine Color Urine Appearance Urine pH Ur Specific [place] Urine Protein Urine Glucose (UA) Urine Ketones Urine Blood Urine Nitrite Urine Bilirubin Urine Urobilinogen Ur Leukocyte Esterase Diagnostic Findings CT abd pelvis IV con only CLINICAL HISTORY: 82 years-old Female presenting with altered MS, high WBC. TECHNIQUE: Multidetector CT of the abdomen and pelvis was performed after the administration of intravenous contrast. IV contrast: 95 mL of Optiray 320. One or more dose lowering techniques were used consistent with the principles of ALARA (as low as reasonably achievable), including automatic exposure control, mA or kV adjustment to individual patient size, and/or use of iterative reconstruction. COMPARISON: 02/14/2016. CT DOSE (mGy.cm): The estimated cumulative dose is 1636.71 mGy.cm. FINDINGS: Senior Piping Designer topogram: Bilateral total hip arthroplasties. Lung bases: Subpleural groundglass opacity in the lateral basal right lower lobe may be postinfectious or postinflammatory versus scarring. Normal heart size. No pericardial or pleural effusion. Liver: Normal morphology. No liver lesion. Patent hepatic vasculature. Biliary: Mild central intrahepatic and extra hepatic biliary ductal prominence as on prior exam. Gallbladder contains numerous gallstones and is distended, possibly on a physiologic basis. No convincing evidence of pathologic wall thickening. No pericholecystic fluid or inflammatory change. Importantly, no evidence of tension on the overlying abdominal wall. Pancreas: Moderate parenchymal atrophy. Spleen: Normal. Adrenal glands: Normal. Kidneys and ureters: Normal. No hydronephrosis. Ureters nondilated. Distal ureters poorly evaluated given extensive streak artifact. Bladder: Poorly evaluated secondary to extensive streak artifact. Ligamentous laxity suggested by the bladder configuration. Pelvic organs: Uterus surgically absent. No adnexal masses. Atrophic ovaries. Bowel: Diverticulosis of the mid to distal sigmoid colon without wall thickening or pericolonic inflammatory change. Few colonic diverticula noted in the ascending colon. The appendix may be absent though the cecum is poorly evaluated due to streak artifact. No bowel obstruction. Peritoneal cavity: No free fluid or intraperitoneal gas. Lymph nodes: No enlarged lymph nodes in the abdomen or pelvis. Vasculature: Atherosclerosis of the normal caliber abdominal aorta. IVC patent. Abdominal wall: Postsurgical changes of the infraumbilical midline abdominal wall. Musculoskeletal: Bilateral total hip arthroplasty. Osteopenia. Degenerative changes of the spine. IMPRESSION: 1. Distended gallbladder with extensive gallstones. No convincing evidence of tension or cholecystitis at this time. If there is clinical ambiguity, nuclear medicine HIDA scan could be obtained. 2. Streak artifact arising from the bilateral total hip arthroplasties degrade evaluation of the pelvis. The appendix is not visualized, which may be result of artifact or absence on a surgical basis. 3. Diverticulosis. No evidence of diverticulitis. _ (1) Dementia Dementia type: vascular dementia Alzheimer's disease onset: Dementia behavioral disturbance: without behavioral disturbance Qualified Code(s): F01.50 - Vascular dementia without behavioral disturbance
[2018-05-10] MEDS ORDERED: PERFLUTREN LIPID MICROSPHERE (DEFINITY) IV ONE (10:44)
[2018-05-10] MEDS: MEMANTINE HCL 10 MG TAB PO SCH ×2 (11:11→21:02)
[2018-05-10] MEDS: FERROUS SULFATE 325 MG TAB PO SCH ×2 (11:11→21:02)
[2018-05-10] MEDS: RIVASTIGMINE TARTRATE 1.5 MG CAP PO SCH ×2 (11:11→21:02)
[2018-05-10] MEDS: AMLODIPINE BESYLATE 5 MG TAB PO SCH (11:12)
[2018-05-10] MEDS: FLUOXETINE HCL 20 MG CAP PO SCH (11:12)
[2018-05-10] MEDS: MONTELUKAST SODIUM 10 MG TABLET PO SCH (11:12)
[2018-05-10] MEDS: PANTOprazole 40 MG TAB PO SCH (11:12)
[2018-05-10] MEDS ORDERED: MoRPHine SULFATE 2 MG/ML CARP IV STA (12:44)
[2018-05-10] MEDS ORDERED: MoRPHine SULFATE 4 MG/ML 1 ML CARP\\VIAL ONE (12:53)
--- NOTE | 2018-05-10 14:02 | Nuclear Medicine Report ---
NM hepatobiliary wo pharm HISTORY: Pain abd pain, pls relay result to md once available COMPARISON: None. TECHNIQUE: Immediately following the intravenous administration of 5.1 mCi Tc-99m Choletec, dynamic a nterior abdominal imaging was performed. FINDINGS: Uniform hepatic tracer accumulation is shown. Prompt intrahepatic biliary excretion is seen. The comm on bile duct, and small bowel are all visualized by 30 minutes. The gallbladder is not identified umberto pite morphine administration. IMPRESSION: Findings consistent with acute cholecystitis. The above report was generated using voice recognition software. It may contain grammatical, syntax or spelling errors. Electronically signed by: Mil Pena M.D. 05/10/2018 2:00 PM
--- NOTE | 2018-05-10 15:47 | Hospitalist Progress Note ---
Date of Service May 10, 2018 Assessment & Plan (1) Acute cholecystitis: Noted to have abdominal tenderness in ED. Afebrile. WBC was 14,820. Alk phos elevated. C-reactive protein elevated. Procalcitonin normal. CT demonstrated cholelithiasis and distended gallbladder. HIDA scan positive. IV piperacillin / tazobactam. General Surgery consulted. (2) Acute alteration in mental status: Probable encephalopathy secondary to cholecystitis. Improved. (3) Hypertension: Continue bisoprolol and amlodipine. (4) COPD (chronic obstructive pulmonary disease): Pulmonary status stable. Incentive spirometry. (5) GERD (gastroesophageal reflux disease): Continue PPI. (6) CKD (chronic kidney disease), stage III: Serum creatinine 0.97. Follow. (7) Hypothyroidism: TSH normal. Continue levothyroxine. (8) Dementia: Monitor for delirium. Avoid meds with anticholingergic side effects. (9) DVT prophylaxis: SCD's. Add SQ heparin or enoxaparin postop when OK from surgical perspective. Ambulate. (10) Discharge planning issues: To be determined. Family Medicine follow-up with Dr. Monson. Subjective Recheck for multiple problems. Pt seen in her room around 1450. She states that she feels well. No fever. No chest pain. No cough or SOB. No abdominal pain, nausea, vomiting, diarrhea. No urinary symptoms. Has some right wrist pain from her fall. Physical Exam 2 Vital Signs (Past 24 Hours): Last Vital Signs Temp 36.8 C 05/10/18 15:45 Pulse 83 05/10/18 15:45 Resp 20 05/10/18 15:45 BP 126/68 05/10/18 15:45 Pulse Ox 95 05/10/18 15:45 Constitutional: no acute distress Respiratory: no respiratory distress Auscultation: lungs clear to auscultation bilaterally Cardiovascular: Rate/Rhythm: regular rate and regular rhythm Vessels: no JVD Extremities: no calf tenderness and no edema Gastrointestinal (Abdomen): normal bowel sounds, soft, nontender, no hepatosplenomegaly Skin: no rashes, warm and dry Psychiatric: Orientation: alert (mild confusion) Results & Data Laboratory Results Laboratory Results - last 24 hr 05/10/18 05/10/18 06:33 06:33 WBC 10.29 RBC 4.61 Hgb 12.7 Hct 39.8 MCV 86.3 MCH 27.5 MCHC 31.9 L RDW Std Deviation 53.2 H RDW Coeff of Stalin 17.0 H Plt Count 254 MPV 11.1 H Immature Gran % (Auto) 0.2 Neut % (Auto) 69.9 Lymph % (Auto) 18.6 [place] % (Auto) 8.0 Eos % (Auto) 3.2 Baso % (Auto) 0.1 Immature Gran # (Auto) 0.02 Neut # (Auto) 7.20 H Lymph # (Auto) 1.91 [place] # (Auto) 0.82 H Eos # (Auto) 0.33 Baso # (Auto) 0.01 Sodium 138 Potassium 3.7 Chloride 106 Carbon Dioxide 27 Anion Gap 5.0 BUN 11 Creatinine 0.97 Est Cr Clr Drug Dosing 52.6 Est GFR ( Amer) 63.9 Est GFR (Non-Af Amer) 55.2 BUN/Creatinine Ratio 11.1 Glucose 99 Calcium 9.1 Total Bilirubin 0.7 AST 13 L ALT 13 Alkaline Phosphatase 99 Total Creatine Kinase 151 Total Protein 6.5 Albumin 2.7 L Globulin 3.8 Albumin/Globulin Ratio 0.7 L _ (1) Dementia Dementia type: vascular dementia Alzheimer's disease onset: Dementia behavioral disturbance: without behavioral disturbance Qualified Code(s): F01.50 - Vascular dementia without behavioral disturbance (2) Hypothyroidism Hypothyroidism type: unspecified Qualified Code(s): E03.9 - Hypothyroidism, unspecified (3) GERD (gastroesophageal reflux disease) Esophagitis presence: without esophagitis Qualified Code(s): K21.9 - Gastro- esophageal reflux disease without esophagitis (4) COPD (chronic obstructive pulmonary disease) COPD type: unspecified COPD Chronic bronchitis type: Emphysema type: Qualified Code(s): J44.9 - Chronic obstructive pulmonary disease, unspecified (5) Hypertension Hypertension type: essential hypertension Qualified Code(s): I10 - Essential (primary) hypertension
[2018-05-10] MEDS: ACETAMINOPHEN 325 MG TAB PO PRN (16:53)
[2018-05-10] MEDS ORDERED: PIPERACILL/TAZOBAC CONSULT ACTIVE PRN (17:11)
[2018-05-10] MEDS ORDERED: PIPERACILLIN/TAZOBACTAM 3.375 GM in DEXTROSE 5% 100 ML IV SCH (17:15)
[2018-05-10] MEDS ORDERED: PIPERACILLIN/TAZOBACTAM 3.375 GM in DEXTROSE 5% 100 ML IV ONE (17:30)
--- NOTE | 2018-05-10 20:56 | XRay Report ---
XR wrist RT min 3V routine CLINICAL HISTORY: wrist pain pain COMPARISON: None. DISCUSSION: Severe generalized degenerative change. This is most prominent at the first carpometacarp al joint. Components of chondrocalcinosis present. There is no evidence for fracture. There is no lisa dence for soft tissue swelling. IMPRESSION: Severe degenerative change. No acute process. The above report was generated using voice recognition software. It may contain grammatical, syntax or spelling errors. Electronically signed by: Mil Pena M.D. 05/10/2018 8:54 PM
[2018-05-10] MEDS: PIPERACILLIN/TAZOBACTAM 3.375 GM in DEXTROSE 5% 100 ML IV SCH (22:31)
[2018-05-11] MEDS: LEVOTHYROXINE SODIUM 75 MCG TABLET PO SCH (04:59)
[2018-05-11 07:33] LABS: Hematocrit (blood only) 38.5 % (37-47); Hemoglobin 12.1 g/dL (12.0-16.0); Mean Corpuscular Hgb Conc 31.4 g/dL (32-36); Mean Corpuscular Volume 86.5 fL (80-100); Mean Platelet Volume 10.7 fL (7.4-10.4); Platelet Count 255 K/uL (130-400); RDW Coefficient of Variation 16.9 % (11.5-14.5); RDW Standard Deviation 53.4 fL (36.4-46.3); Red Blood Count 4.45 M/uL (4.2-5.4); White Blood Count 7.43 K/uL (4.8-10.8)
[2018-05-11 08:08] LABS: Albumin Level 2.5 gm/dl (3.4-5.0); BUN Creatinine Ratio 9.5 (10-20); Bilirubin Direct 0.2 mg/dl (0-0.2); Calcium 8.6 mg/dl (8.5-10.1); Creatinine Clr Calc Pharmacy 53.2 ml/min; Est GFR (African American) 64.7; Est GFR (Non-African American) 55.9; Potassium 3.8 mmol/L (3.5-5.1)
[2018-05-11] MEDS: AMLODIPINE BESYLATE 5 MG TAB PO SCH ×2 (08:09→08:17)
[2018-05-11 08:11] LABS: Albumin Globulin Ratio 0.7 (0.9-2); Bilirubin,Total 0.6 mg/dl (0.2-1); Globulin 3.6 gm/dl (2.5-4.0); Total Protein 6.1 gm/dl (6.4-8.2)
[2018-05-11] MEDS: MONTELUKAST SODIUM 10 MG TABLET PO SCH ×2 (08:11→08:17)
[2018-05-11] MEDS: FLUOXETINE HCL 20 MG CAP PO SCH ×2 (08:11→08:17)
[2018-05-11] MEDS: PANTOprazole 40 MG TAB PO SCH ×2 (08:11→08:17)
[2018-05-11] MEDS: FERROUS SULFATE 325 MG TAB PO SCH ×3 (08:12→20:31)
[2018-05-11] MEDS: MEMANTINE HCL 10 MG TAB PO SCH ×3 (08:12→20:31)
[2018-05-11] MEDS: D5NSS + 20MEQ KCL 20 MEQ/1,000 ML BAG IV SCH (08:13)
[2018-05-11] MEDS: RIVASTIGMINE TARTRATE 1.5 MG CAP PO SCH ×3 (08:13→20:31)
[2018-05-11] MEDS: PIPERACILLIN/TAZOBACTAM 3.375 GM in DEXTROSE 5% 100 ML IV SCH ×3 (08:23→22:30)
--- NOTE | 2018-05-11 11:39 | Anesthesiology Consultation ---
Date of Service May 11, 2018 Assessment & Plan (1) Encounter for pre-operative examination: Chart Review Chart Review: Acceptable Risk for Surgery and Patient NOT seen in Pre Admission Testing Consults Requested none NPO Date Last Intake of Solids: 05/10/18 Time Last Intake of Solids: 23:59 History Surgery Operation Date: 05/11/18 09:25 Proposed Procedures p Laparoscopic Cholecystectomy - Gustavo Ruelas DO, FACS Height/Weight Height: 5 ft 6 in Weight: 91.4 kg Allergies Allergy/AdvReac Type Severity Reaction Status Date / Time latex Allergy Mild RASH Verified 04/22/17 11:53 donepezil Allergy Unknown NIGHTMARES Verified 04/22/17 11:53 NSAIDS (Non-Steroidal Allergy Unknown NOT TO Verified 01/20/18 16:06 Anti-Inflamma TAKE DUE TO KIDNEY CHANGES Medications Home Medications Medication Instructions Recorded Confirmed Last Taken albuterol sulfate [Proventil HFA] 2 puff INHALATION Q6H PRN 01/20/18 05/09/18 Unknown amlodipine 2.5 mg PO DAILY 01/20/18 05/09/18 Unknown bisoprolol fumarate 10 mg PO QAM 01/20/18 05/09/18 Unknown calcitriol 0.25 mcg PO DAILY 01/20/18 05/09/18 Unknown calcium carbonate [Calcium 600] 600 mg PO DAILY 01/20/18 05/09/18 Unknown cholecalciferol (vitamin D3) 5,000 units PO DAILY 01/20/18 05/09/18 Unknown [Vitamin D3] clonazepam 0.5 mg PO BID PRN 01/20/18 05/09/18 Unknown ferrous sulfate 325 mg PO BID 01/20/18 05/09/18 Unknown fluoxetine 60 mg PO QAM 01/20/18 05/09/18 Unknown levothyroxine 75 mcg PO QAM 01/20/18 05/09/18 Unknown memantine 10 mg PO BID 01/20/18 05/09/18 Unknown montelukast 10 mg PO QAM 01/20/18 05/09/18 Unknown omeprazole 20 mg PO QAM 01/20/18 05/09/18 Unknown rivastigmine tartrate 3 mg PO BID 01/20/18 05/09/18 Unknown rosuvastatin 5 mg PO QPM 01/20/18 05/09/18 Unknown magnesium chloride [Slow-Mag] 71.5 mg PO DAILY 05/09/18 05/09/18 Unknown Active Medications Generic Name Dose Route Start Last Admin Trade Name Frevivian PRN Reason Stop Dose Admin Acetaminophen 650 mg 05/10/18 02:34 05/10/18 16:53 Tylenol PO 06/09/18 02:33 650 mg Q4H PRN Administration Pain or Fever Amlodipine Besylate 2.5 mg 05/10/18 09:00 05/11/18 08:17 Norvasc PO 06/09/18 08:59 Not Given DAILY OBINNA Ferrous Sulfate 325 mg 05/10/18 09:00 05/11/18 08:17 Feosol PO 06/09/18 08:59 Not Given BID OBINNA Fluoxetine HCl 60 mg 05/10/18 09:00 05/11/18 08:17 Prozac PO 06/09/18 08:59 Not Given QAM OBINNA Potassium Chloride/Dextrose/Sod Cl 20 meq in 1,000 mls @ 75 mls/hr 05/10/18 04 :00 05/11/18 08:13 D5nss + 20meq Kcl IV 06/09/18 03:59 75 mls/hr .[id number] OBINNA Administration Piperacillin Sod/Tazobactam 115 mls @ 28.75 mls/hr 05/10/18 23:00 05/11/18 08 :23 Sod 3.375 gm/ Dextrose IV 05/20/18 22:59 28.8 mls/hr Q8H OBINNA Administration Protocol Levothyroxine Sodium 75 mcg 05/10/18 06:30 05/11/18 04:59 Synthroid PO 06/09/18 06:29 75 mcg DAILYBB OBINNA Administration Memantine 10 mg 05/10/18 09:00 05/11/18 08:17 Namenda PO 06/09/18 08:59 Not Given BID OBINNA Miscellaneous 1 ea 05/10/18 08:00 05/11/18 08:09 Order Awaiting Action N/A 06/09/18 07:59 Not Given QS OBINNA Montelukast Sodium 10 mg 05/10/18 09:00 05/11/18 08:17 Singulair PO 06/09/18 08:59 Not Given QAM OBINNA Pantoprazole Sodium 40 mg 05/10/18 09:00 05/11/18 08:17 Protonix PO 06/09/18 08:59 Not Given QAM OBINNA Rivastigmine Tartrate 3 mg 05/10/18 09:00 05/11/18 08:16 Exelon PO 06/09/18 08:59 Not Given BID OBINNA Past Medical History Medical History Hypertension (Chronic) Dementia (Chronic) Hypothyroidism (Chronic) GERD (gastroesophageal reflux disease) (Chronic) COPD (chronic obstructive pulmonary disease) (Chronic) CKD (chronic kidney disease), stage III (Chronic) 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, 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) Past Family History Family History Other Family history non-contributory Past Surgical History Surgical History S/P tonsillectomy (Chronic) S/P appendectomy (Chronic) S/P laminectomy (Chronic) History of bladder surgery (Chronic) S/P cataract surgery (Chronic) S/P RAMYA (total abdominal hysterectomy) (Chronic) Total replacement of hip (Chronic) Status post hysterectomy (Chronic) Social History Smoking Status: Former smoker Smoking cigarettes per day: 20 pack year hx Do You Dip or Chew Tobacco: No Smoking End Date: 1987 Hx Alcohol Use: No Hx Substance Use: No Physical Exam Vital Signs Last Vital Signs Temp 36.6 C 05/11/18 07:16 Pulse 68 05/11/18 08:42 Resp 16 05/11/18 07:16 BP 143/81 H 05/11/18 02:56 Pulse Ox 94 05/11/18 07:16 Testing Laboratory Results 05/11/18 07:09 05/11/18 07:09 PT 10.4 Seconds (9.0-12.0) 05/09/18 19:53 INR 1.0 (0.9-1.1) 05/09/18 19:53 APTT 26.2 Seconds (21.0-31.0) 05/09/18 19:53 Urine Color Yellow 05/09/18 19:31 Urine Appearance Clear (Clear) 05/09/18 19:31 Urine pH 5.5 (4.5-7.5) 05/09/18 19:31 Ur Specific [place] 1.010 (1.000-1.030) 05/09/18 19:31 Urine Protein Negative (Negative) 05/09/18 19:31 Urine Glucose (UA) Negative (Negative) 05/09/18 19:31 Urine Ketones Negative (Negative) 05/09/18 19:31 Urine Nitrite Negative (Negative) 05/09/18 19:31 Ur Leukocyte Esterase Negative (Negative) 05/09/18 19:31
[2018-05-11] MEDS ORDERED: BUPIVACAINE 0.5 % 5 MG/1 ML MPF 30ML VIAL ONE (11:51)
--- NOTE | 2018-05-11 11:59 | Surgery Progress Note ---
Date of Service May 11, 2018 Assessment & Plan (1) Gallbladder calculus with acute cholecystitis: 82-year-old female with acute calculus cholecystitis. Plan for laparoscopic cholecystectomy with possible cholangiogram Patient is demented and her eldest daughter signed on behalf of her power of commercial attorney There is the procedure reviewed to include but not limited to bleeding, infection, retained stone, bile leak, need for future more extensive surgery, damage surrounding structures including common bile duct, conversion to open, and the risk of anesthesia Patient is currently on antibiotics The diagnosis, details of procedure and recovery, and plan of care discussed the patient and her family, all cushions were answered, the patient and her daughters agreed to proceed with surgery as planned. Present on Admission?: Yes Subjective 82-year-old female brought in after being found down, CT imaging suggested a large gallbladder with stones, HIDA scan performed yesterday revealed acute cholecystitis. The patient has dementia does not recall the events that led up to this. However she denies any current abdominal pain is feeling well. Physical Exam 2 Vital Signs (Past 24 Hours): Last Vital Signs Temp 36.8 C 05/11/18 11:44 Pulse 69 05/11/18 11:44 Resp 16 05/11/18 11:44 BP 155/77 H 05/11/18 11:44 Pulse Ox 93 05/11/18 11:44 Constitutional: WD/WN, vitals as above no acute distress Gastrointestinal (Abdomen): normal bowel sounds, soft, nontender, no hepatosplenomegaly Results & Data Laboratory Results Laboratory Results - last 24 hr 05/11/18 05/11/18 07:09 07:09 WBC 7.43 RBC 4.45 Hgb 12.1 Hct 38.5 MCV 86.5 MCH 27.2 MCHC 31.4 L RDW Std Deviation 53.4 H RDW Coeff of Stalin 16.9 H Plt Count 255 MPV 10.7 H Sodium 140 Potassium 3.8 Chloride 109 H Carbon Dioxide 25 Anion Gap 6.0 BUN 9 Creatinine 0.96 Est Cr Clr Drug Dosing 53.2 Est GFR ( Amer) 64.7 Est GFR (Non-Af Amer) 55.9 BUN/Creatinine Ratio 9.5 L Glucose 93 Calcium 8.6 Total Bilirubin 0.6 Direct Bilirubin 0.2 AST 12 L ALT 14 Alkaline Phosphatase 93 Total Protein 6.1 L Albumin 2.5 L Globulin 3.6 Albumin/Globulin Ratio 0.7 L Diagnostic Findings NM hepatobiliary wo pharm HISTORY: Pain abd pain, pls relay result to md once available COMPARISON: None. TECHNIQUE: Immediately following the intravenous administration of 5.1 mCi Tc- 99m Choletec, dynamic anterior abdominal imaging was performed. FINDINGS: Uniform hepatic tracer accumulation is shown. Prompt intrahepatic biliary excretion is seen. The common bile duct, and small bowel are all visualized by 30 minutes. The gallbladder is not identified despite morphine administration. IMPRESSION: Findings consistent with acute cholecystitis.
[2018-05-11] MEDS ORDERED: fentaNYL citrate 100 MCG/2 ML VIAL ONE ×2 (12:12→13:40)
[2018-05-11] MEDS ORDERED: ePHEDrine sulfate 50 MG/ML AMP IV PRN (12:58)
[2018-05-11] MEDS ORDERED: ONDANSETRON INJ 2 MG/ML 2 ML VIAL IV PRN ×2 (12:58→15:47)
[2018-05-11] MEDS ORDERED: fentaNYL citrate 100 MCG/2 ML VIAL IV PRN (12:58)
[2018-05-11] MEDS ORDERED: ATROPINE SULFATE 0.1 MG/ML 10ML SYR IV PRN (12:58)
[2018-05-11] MEDS ORDERED: GLYCOPYRROLATE 0.2 MG/ML VIAL ONE (13:39)
[2018-05-11] MEDS ORDERED: PROPOFOL IV EMULSION 10 MG/ML 20 ML VIAL IV ONE (13:39)
[2018-05-11] MEDS ORDERED: LIDOCAINE HCL 2% 2 ML VIAL/AMP(20MG/ML) INFIL ONE (13:39)
[2018-05-11] MEDS ORDERED: DEXAMETHASONE SOD INJ 4 MG/ML VIAL ONE (13:39)
[2018-05-11] MEDS ORDERED: NEOSTIGMINE METHYLSULFATE 5 MG/5 ML SYR ONE (13:39)
[2018-05-11] MEDS ORDERED: ONDANSETRON INJ 2 MG/ML 2 ML VIAL ONE (13:39)
[2018-05-11] MEDS ORDERED: ROCURONIUM BROMIDE 10 MG/ML 5 ML VIAL ONE (13:42)
[2018-05-11] MEDS ORDERED: PHENYLEPHRINE 100MCG/ML 5ML SYR ONE (14:05)
--- NOTE | 2018-05-11 14:30 | Operative Report ---
Post Operative Report Pre & Post Diagnosis Operation Date: 05/11/18 09:25 Pre-Op Diagnosis: cholecystitis Post-Op Diagnosis: cholecystitis Procedure Operation Date: 05/11/18 09:25 Actual Procedures p Laparoscopic Cholecystectomy(Not Applicable) - Gustavo Ruelas DO, FACS Surgeon Gustavo Ruelas DO, CHAVA Gaggerman Ivan Mike PA-C Estimated Blood Loss 13 Findings Consistent with Post-Op Diagnosis Significantly inflamed and enlarged gallbladder. Aspirated and appeared to have hydrops. Multiple gallstones. Cystic duct and artery clearly identified, window of safety obtained, doubly clipped and divided. Some stones spilled and retrieved. Good hemostasis. Specimens Gallbladder and contents Anesthesia Type General Complications none Disposition Accompanied Patient To Recovery: No Disposition: Recovery Room Indications 82-year-old female found down by her family at home, admitted with leukocytosis and CT scan that showed dilated stone filled gallbladder but no evidence of cholecystitis. HIDA scan revealed acute cholecystitis. Plan for laparoscopic cholecystectomy with possible cholangiogram. The risks of the procedure were discussed, all questions were answered, and the patient agreed to proceed with surgery as planned. Description of Procedure The patient was properly identified, consented, and taken to the operating room where she was placed in the supine position. General endotracheal anesthesia was induced. SCDs and a safety belt were placed. Preoperative antibiotics were administered. The patient's abdomen was prepped and draped in the standard sterile fashion. A surgical timeout was performed and all parties were in agreement that this was the correct patient and procedure to be performed and we continued as planned. An incision was made superior and to the left of the umbilicus overlying the rectus muscle and the Veress needle was inserted. Saline drop test confirmed entry into the peritoneum. The abdomen was insufflated with carbon dioxide which the patient tolerated without incident. The abdomen was then entered using the Optiview technique and a 5 mm trocar. The laparoscope was inserted and no damage from initial trocar or Veress needle placement was noted, no gross abnormalities were noted within the 4 quadrants of the abdomen. An 11 mm port was placed in the subxiphoid position and two 5 mm ports were then placed in the right subcostal position. The patient was placed in reverse Trendelenburg position and rotated towards the left. The gallbladder was significantly inflamed, tense, and enlarged. Gallbladder was aspirated to assist in retraction and clear fluid was returned to indicate hydrops of the gallbladder. The dome of the gallbladder was retracted towards the left upper quadrant and the infundibulum was retracted toward the right lower quadrant revealing Calot's triangle. Peritoneal attachments were taken down with electrocautery and blunt dissection. The cystic duct and artery were circumferentially dissected. A window of safety was obtained showing the cystic duct entering the gallbladder with no aberrant structures noted. The cystic duct and artery were doubly clipped and divided. The gallbladder was then lifted off the gallbladder fossa with electrocautery. The gallbladder was intrahepatic and during the dissection small tear occurred in the gallbladder. There were numerous stones within the gallbladder, and a few were spilled. These gallstones were all retrieved. The gallbladder was placed in an Endo Catch bag and removed through the subxiphoid port site. The incision had to be expanded and the fascia stretched to allow removal of the gallbladder. The right upper quadrant was irrigated and hemostasis was found to be good. 5 mm trochars were removed under direct visualization and the abdomen was allowed to collapse. The subxiphoid port site fascia was closed with 0 Vicryl suture. The wound was irrigated, and the skin of all ports was closed with 4-0 Monocryl subcuticular sutures. Dermabond was placed over the wounds. The patient was extubated in the operating room and taken to the PACU where she recovered without apparent incident. All sponge, instrument and needle counts were correct at the conclusion of the procedure. The patient tolerated the procedure well. The physician's minister assistant was present and scrubbed for the entirety of the case and was essential in positioning the patient, prepping and draping, retraction and exposure, driving the laparoscope, removal of the gallbladder, closure the incisions, and placement of the dressings. I attest to the content of the Intraoperative Record and any orders documented therein. Any exceptions are noted below.
--- NOTE | 2018-05-11 15:38 | Anesthesiology Progress Note ---
Date of Service May 11, 2018 Anesthesia Post Procedure Vital Signs Vital Signs: Temp Pulse Pulse Pulse Resp BP Pulse Ox 05/11/18 15:30 36.6 C 66 16 138/60 92 05/11/18 15:15 76 16 155/69 H 94 05/11/18 15:05 79 16 154/67 H 94 05/11/18 14:55 81 16 147/66 H 94 05/11/18 14:46 37.0 C 87 18 158/77 H 99 05/11/18 12:19 36.8 C 69 20 169/75 H 95 05/11/18 11:44 36.8 C 69 16 155/77 H 93 05/11/18 08:42 68 05/11/18 07:16 36.6 C 72 16 94 05/11/18 02:56 36.6 C 65 18 143/81 H 91 05/10/18 23:41 75 05/10/18 23:34 36.7 C 76 17 116/68 91 05/10/18 19:20 37.1 C 72 20 110/55 L 93 05/10/18 16:42 71 05/10/18 15:45 36.8 C 83 20 126/68 95 Pain Intensity Right Wrist: Pain Intensity: 0 Notes Mental Status: alert / awake / arousable and participated in evaluation Patient Amnestic to Procedure: Yes Nausea / Vomiting: adequately controlled Pain: adequately controlled Airway Patency, RR, SpO2: stable & adequate BP & HR: stable & adequate Hydration State: stable & adequate Anesthetic Complications: no major complications apparent and Pt Satisfied with anesthetic care
[2018-05-11] MEDS ORDERED: MoRPHine SULFATE 4 MG/ML 1 ML CARP\\VIAL IV PRN (15:47)
--- NOTE | 2018-05-11 20:16 | Internal Medicine Consult Note ---
Date of Consultation May 11, 2018 History of Present Illness Attending Physician: Joshua Burris MD Allergies Allergy/AdvReac Type Severity Reaction Status Date / Time latex Allergy Mild RASH Verified 04/22/17 11:53 donepezil Allergy Unknown NIGHTMARES Verified 04/22/17 11:53 NSAIDS (Non-Steroidal Allergy Unknown NOT TO Verified 01/20/18 16:06 Anti-Inflamma TAKE DUE TO KIDNEY CHANGES Home Medications Home Medications Medication Instructions Recorded Confirmed Type albuterol sulfate [Proventil HFA] 2 puff INHALATION Q6H PRN 01/20/18 05/09/18 History amlodipine 2.5 mg PO DAILY 01/20/18 05/09/18 History bisoprolol fumarate 10 mg PO QAM 01/20/18 05/09/18 History calcitriol 0.25 mcg PO DAILY 01/20/18 05/09/18 History calcium carbonate [Calcium 600] 600 mg PO DAILY 01/20/18 05/09/18 History cholecalciferol (vitamin D3) 5,000 units PO DAILY 01/20/18 05/09/18 History [Vitamin D3] clonazepam 0.5 mg PO BID PRN 01/20/18 05/09/18 History ferrous sulfate 325 mg PO BID 01/20/18 05/09/18 History fluoxetine 60 mg PO QAM 01/20/18 05/09/18 History levothyroxine 75 mcg PO QAM 01/20/18 05/09/18 History memantine 10 mg PO BID 01/20/18 05/09/18 History montelukast 10 mg PO QAM 01/20/18 05/09/18 History omeprazole 20 mg PO QAM 01/20/18 05/09/18 History rivastigmine tartrate 3 mg PO BID 01/20/18 05/09/18 History rosuvastatin 5 mg PO QPM 01/20/18 05/09/18 History magnesium chloride [Slow-Mag] 71.5 mg PO DAILY 05/09/18 05/09/18 History Patient History Medical History Hypertension (Chronic) Dementia (Chronic) Hypothyroidism (Chronic) GERD (gastroesophageal reflux disease) (Chronic) COPD (chronic obstructive pulmonary disease) (Chronic) CKD (chronic kidney disease), stage III (Chronic) 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, 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) Surgical History S/P tonsillectomy (Chronic) S/P appendectomy (Chronic) S/P laminectomy (Chronic) History of bladder surgery (Chronic) S/P cataract surgery (Chronic) S/P RAMYA (total abdominal hysterectomy) (Chronic) Total replacement of hip (Chronic) Status post hysterectomy (Chronic) Family History Other Family history non-contributory Social History marital status: / Current Living Situation: Alone Current Living Situation Comment: home with caregivers Other Information That Helps Us Care for You: No Feels Safe at Home: Yes Safety Concerns: Feels Safe At This Time Smoking Status: Former smoker Cigarettes per Day: 20 pack year hx Do You Dip or Chew Tobacco: No Smoking End Date: 1987 Hx Alcohol Use: No Hx Substance Use: No Beliefs That Will Affect Care: None Communication Ability: Effective Physical Exam 2 Vital Signs (Past 24 Hours): Last Vital Signs Temp 36.8 C 05/11/18 18:05 Pulse 67 05/11/18 18:05 Resp 16 05/11/18 18:05 BP 145/73 H 05/11/18 18:05 Pulse Ox 90 05/11/18 18:05
[2018-05-12] MEDS: D5NSS + 20MEQ KCL 20 MEQ/1,000 ML BAG IV SCH ×2 (04:53→20:03)
--- NOTE | 2018-05-12 05:08 | Hospitalist Progress Note ---
Date of Service May 11, 2018 Assessment & Plan (1) Acute cholecystitis: Noted to have abdominal tenderness in ED. Afebrile. WBC was 14,820. Alk phos elevated. C-reactive protein elevated. Procalcitonin normal. CT demonstrated cholelithiasis and distended gallbladder. HIDA scan positive. Received IV piperacillin / tazobactam. General Surgery consulted. Laparoscopic cholecystectomy performed by Dr. Ruelas. (2) Acute alteration in mental status: Probable metabolic encephalopathy secondary to cholecystitis. Improved. (3) Hypertension: Continue bisoprolol and amlodipine. (4) COPD (chronic obstructive pulmonary disease): Pulmonary status stable. Incentive spirometry. (5) GERD (gastroesophageal reflux disease): Continue PPI. (6) CKD (chronic kidney disease), stage III: Serum creatinine 0.96. Follow. (7) Hypothyroidism: TSH normal. Continue levothyroxine. (8) Dementia: Monitor for delirium. Avoid meds with anticholingergic side effects. (9) DVT prophylaxis: SCD's. Add SQ heparin or enoxaparin postop when OK from surgical perspective. Ambulate. (10) Discharge planning issues: To be determined. Family Medicine follow-up with Dr. Monson. Subjective Recheck for multiple problems. Pt seen in her room around 1940. Laparoscopic cholecystecomy performed by Dr. Ruelas. Doing well postop. No fever. No chest pain. No cough or SOB. Mild postop abdominal pain. No nausea, vomiting, diarrhea. No urinary symptoms. Physical Exam 2 Vital Signs (Past 24 Hours): Last Vital Signs Temp 36.8 C 05/12/18 03:30 Pulse 70 05/12/18 03:30 Resp 16 05/12/18 03:30 BP 133/72 05/12/18 03:30 Pulse Ox 95 05/12/18 03:30 Constitutional: no acute distress Respiratory: no respiratory distress Auscultation: lungs clear to auscultation bilaterally Cardiovascular: Rate/Rhythm: regular rate and regular rhythm Vessels: no JVD Extremities: no calf tenderness and no edema Gastrointestinal (Abdomen): normal bowel sounds, soft, nontender, no hepatosplenomegaly Skin: no rashes, warm and dry Psychiatric: Orientation: alert (mild confusion) Results & Data Laboratory Results Laboratory Results - last 24 hr 05/11/18 05/11/18 07:09 07:09 WBC 7.43 RBC 4.45 Hgb 12.1 Hct 38.5 MCV 86.5 MCH 27.2 MCHC 31.4 L RDW Std Deviation 53.4 H RDW Coeff of Stalin 16.9 H Plt Count 255 MPV 10.7 H Sodium 140 Potassium 3.8 Chloride 109 H Carbon Dioxide 25 Anion Gap 6.0 BUN 9 Creatinine 0.96 Est Cr Clr Drug Dosing 53.2 Est GFR ( Amer) 64.7 Est GFR (Non-Af Amer) 55.9 BUN/Creatinine Ratio 9.5 L Glucose 93 Calcium 8.6 Total Bilirubin 0.6 Direct Bilirubin 0.2 AST 12 L ALT 14 Alkaline Phosphatase 93 Total Protein 6.1 L Albumin 2.5 L Globulin 3.6 Albumin/Globulin Ratio 0.7 L _ (1) Hypertension Hypertension type: essential hypertension Qualified Code(s): I10 - Essential (primary) hypertension (2) COPD (chronic obstructive pulmonary disease) COPD type: unspecified COPD Chronic bronchitis type: Emphysema type: Qualified Code(s): J44.9 - Chronic obstructive pulmonary disease, unspecified (3) GERD (gastroesophageal reflux disease) Esophagitis presence: without esophagitis Qualified Code(s): K21.9 - Gastro- esophageal reflux disease without esophagitis (4) Hypothyroidism Hypothyroidism type: unspecified Qualified Code(s): E03.9 - Hypothyroidism, unspecified (5) Dementia Dementia type: vascular dementia Alzheimer's disease onset: Dementia behavioral disturbance: without behavioral disturbance Qualified Code(s): F01.50 - Vascular dementia without behavioral disturbance
[2018-05-12 05:59] LABS: Hematocrit (blood only) 37.3 % (37-47); Hemoglobin 11.7 g/dL (12.0-16.0); Mean Corpuscular Hgb Conc 31.4 g/dL (32-36); Mean Corpuscular Volume 86.5 fL (80-100); Mean Platelet Volume 10.5 fL (7.4-10.4); Platelet Count 272 K/uL (130-400); RDW Coefficient of Variation 16.3 % (11.5-14.5); RDW Standard Deviation 52.2 fL (36.4-46.3); Red Blood Count 4.31 M/uL (4.2-5.4); White Blood Count 12.19 K/uL (4.8-10.8)
[2018-05-12] MEDS: LEVOTHYROXINE SODIUM 75 MCG TABLET PO SCH (06:19)
[2018-05-12] MEDS: PIPERACILLIN/TAZOBACTAM 3.375 GM in DEXTROSE 5% 100 ML IV SCH ×3 (06:21→22:28)
[2018-05-12 06:26] LABS: BUN Creatinine Ratio 6.6 (10-20); Calcium 8.9 mg/dl (8.5-10.1); Est GFR (African American) 54.3; Est GFR (Non-African American) 46.9; Potassium 4.1 mmol/L (3.5-5.1)
--- NOTE | 2018-05-12 08:43 | Surgery Progress Note ---
Date of Service May 12, 2018 Assessment & Plan (1) Gallbladder calculus with acute cholecystitis: 05/12/2018 POD #1 s/p Laparoscopic Cholecystectomy Patient doing well Hgb. Hct stable Tolerating clear liquid diet, advance diet as tolerated. Subjective Patient doing well- denies abdominal pain. Patient has dementia and does not remember having surgery yesterday. Physical Exam 2 Vital Signs (Past 24 Hours): Last Vital Signs Temp 37.0 C 05/12/18 08:01 Pulse 68 05/12/18 08:01 Resp 17 05/12/18 08:01 BP 150/87 H 05/12/18 08:01 Pulse Ox 94 05/12/18 08:01 Gastrointestinal (Abdomen): Inspection/Auscultation: + abdominal surgical incision (incision sites with Dermabond, all clean, dry, intact. Mild ecchymosis at incision near umbilicus ) Percussion/Palpation: + abdomen tender (as expected at incision sites. ) and abdomen soft
[2018-05-12] MEDS: RIVASTIGMINE TARTRATE 1.5 MG CAP PO SCH ×2 (09:07→20:06)
[2018-05-12] MEDS: MEMANTINE HCL 10 MG TAB PO SCH ×2 (09:07→20:07)
[2018-05-12] MEDS: FERROUS SULFATE 325 MG TAB PO SCH ×2 (09:07→20:07)
[2018-05-12] MEDS: PANTOprazole 40 MG TAB PO SCH (09:08)
[2018-05-12] MEDS: FLUOXETINE HCL 20 MG CAP PO SCH (09:08)
[2018-05-12] MEDS: MONTELUKAST SODIUM 10 MG TABLET PO SCH (09:08)
[2018-05-12] MEDS: AMLODIPINE BESYLATE 5 MG TAB PO SCH (09:12)
--- NOTE | 2018-05-12 16:49 | Hospitalist Progress Note ---
Date of Service May 12, 2018 Assessment & Plan (1) Acute cholecystitis: Noted to have abdominal tenderness in ED. Afebrile. WBC was 14,820. Alk phos elevated. C-reactive protein elevated. Procalcitonin normal. CT demonstrated cholelithiasis and distended gallbladder. HIDA scan positive. Received IV piperacillin / tazobactam. General Surgery consulted. Laparoscopic cholecystectomy performed by Dr. Ruelas 05/11/18. POD # 1. Doing well. Advance diet as tolerated. (2) Acute alteration in mental status: Probable metabolic encephalopathy secondary to cholecystitis. Improved. (3) Hypertension: Continue bisoprolol and amlodipine. (4) COPD (chronic obstructive pulmonary disease): Pulmonary status stable. Incentive spirometry. (5) GERD (gastroesophageal reflux disease): Continue PPI. (6) CKD (chronic kidney disease), stage III: Serum creatinine 0.96. Follow. (7) Hypothyroidism: TSH normal. Continue levothyroxine. (8) Dementia: Monitor for delirium. Avoid meds with anticholingergic side effects. (9) DVT prophylaxis: SCD's. Ambulate. (10) Discharge planning issues: To be determined. Family Medicine follow-up with Dr. Monson. Subjective Recheck for multiple problems. Pt seen in her room around 1220. Daughter visiting. Laparoscopic cholecystecomy performed by Dr. Ruelas yesterday. Doing well postop. Tolerated clear liquid breakfast. No fever. No chest pain. No cough or SOB. Mild postop abdominal pain. No nausea, vomiting. Passing some flatus, no stool. No urinary symptoms. Physical Exam 2 Vital Signs (Past 24 Hours): Last Vital Signs Temp 36.7 C 05/12/18 15:23 Pulse 62 05/12/18 15:23 Resp 17 05/12/18 15:23 BP 144/78 H 05/12/18 15:23 Pulse Ox 93 05/12/18 15:23 Constitutional: no acute distress Respiratory: no respiratory distress Auscultation: lungs clear to auscultation bilaterally Cardiovascular: Rate/Rhythm: regular rate and regular rhythm Vessels: no JVD Extremities: no calf tenderness and no edema Gastrointestinal (Abdomen): normal bowel sounds, soft, nontender, no hepatosplenomegaly Skin: no rashes, warm and dry Psychiatric: Orientation: alert (mild confusion) Results & Data Laboratory Results Laboratory Results - last 24 hr 05/12/18 05/12/18 05:43 05:43 WBC 12.19 H RBC 4.31 Hgb 11.7 L Hct 37.3 MCV 86.5 MCH 27.1 MCHC 31.4 L RDW Std Deviation 52.2 H RDW Coeff of Stalin 16.3 H Plt Count 272 MPV 10.5 H Sodium 139 Potassium 4.1 Chloride 109 H Carbon Dioxide 24 Anion Gap 6.0 BUN 7 Creatinine 1.11 Est Cr Clr Drug Dosing 46.0 Est GFR ( Amer) 54.3 Est GFR (Non-Af Amer) 46.9 BUN/Creatinine Ratio 6.6 L Glucose 110 H Calcium 8.9 _ (1) Hypertension Hypertension type: essential hypertension Qualified Code(s): I10 - Essential (primary) hypertension (2) COPD (chronic obstructive pulmonary disease) COPD type: unspecified COPD Chronic bronchitis type: Emphysema type: Qualified Code(s): J44.9 - Chronic obstructive pulmonary disease, unspecified (3) GERD (gastroesophageal reflux disease) Esophagitis presence: without esophagitis Qualified Code(s): K21.9 - Gastro- esophageal reflux disease without esophagitis (4) Hypothyroidism Hypothyroidism type: unspecified Qualified Code(s): E03.9 - Hypothyroidism, unspecified (5) Dementia Dementia type: vascular dementia Alzheimer's disease onset: Dementia behavioral disturbance: without behavioral disturbance Qualified Code(s): F01.50 - Vascular dementia without behavioral disturbance
[2018-05-13] MEDS ORDERED: Nursing to Pharmacy Communication ONE (03:59)
[2018-05-13 06:28] LABS: Hematocrit (blood only) 35.3 % (37-47); Hemoglobin 10.9 g/dL (12.0-16.0); Mean Corpuscular Hgb Conc 30.9 g/dL (32-36); Mean Corpuscular Volume 87.8 fL (80-100); Mean Platelet Volume 10.8 fL (7.4-10.4); Platelet Count 248 K/uL (130-400); RDW Coefficient of Variation 16.7 % (11.5-14.5); RDW Standard Deviation 54.2 fL (36.4-46.3); Red Blood Count 4.02 M/uL (4.2-5.4); White Blood Count 9.17 K/uL (4.8-10.8)
[2018-05-13] MEDS: PIPERACILLIN/TAZOBACTAM 3.375 GM in DEXTROSE 5% 100 ML IV SCH (06:28)
[2018-05-13] MEDS: LEVOTHYROXINE SODIUM 75 MCG TABLET PO SCH (06:29)
[2018-05-13 07:08] LABS: Calcium 8.7 mg/dl (8.5-10.1); Creatinine Clr Calc Pharmacy 42.9 ml/min; Est GFR (African American) 49.9; Est GFR (Non-African American) 43.1; Potassium 3.8 mmol/L (3.5-5.1)
[2018-05-13] MEDS: PANTOprazole 40 MG TAB PO SCH (09:12)
[2018-05-13] MEDS: MONTELUKAST SODIUM 10 MG TABLET PO SCH (09:13)
[2018-05-13] MEDS: FLUOXETINE HCL 20 MG CAP PO SCH (09:13)
[2018-05-13] MEDS: RIVASTIGMINE TARTRATE 1.5 MG CAP PO SCH ×2 (09:14→20:50)
[2018-05-13] MEDS: FERROUS SULFATE 325 MG TAB PO SCH ×2 (09:14→20:50)
[2018-05-13] MEDS: MEMANTINE HCL 10 MG TAB PO SCH ×2 (09:14→20:50)
[2018-05-13] MEDS: AMLODIPINE BESYLATE 5 MG TAB PO SCH (09:19)
--- NOTE | 2018-05-13 09:46 | Surgery Progress Note ---
Date of Service May 13, 2018 Assessment & Plan (1) Gallbladder calculus with acute cholecystitis: 05/13/2018 POD #2 s/p Laparoscopic Cholecstectomy Patient doing well- incisions clean, dry, intact. Fading ecchymosis present. WBC within normal limits. H and H stable. Tolerating regular diet. Case management assisting with discharge plans. Ok for discharge from surgical standpoint- discharge per primary service. 05/12/2018 POD #1 s/p Laparoscopic Cholecystectomy Patient doing well Hgb. Hct stable Tolerating clear liquid diet, advance diet as tolerated. Subjective Patient resting comfortably in bed- no new concerns or complaints. Doing well. Denies abdominal pain. Physical Exam 2 Vital Signs (Past 24 Hours): Last Vital Signs Temp 36.8 C 05/13/18 08:00 Pulse 72 05/13/18 08:00 Resp 20 05/13/18 08:00 BP 168/79 H 05/13/18 09:18 Pulse Ox 93 05/13/18 08:00 Gastrointestinal (Abdomen): Inspection/Auscultation: + abdominal surgical incision (incision sites with Dermabond, all clean, dry, intact. Mild ecchymosis at incision near umbilicus ) Percussion/Palpation: + abdomen tender (as expected at incision sites. ) and abdomen soft
--- NOTE | 2018-05-13 11:22 | Hospitalist Progress Note ---
Date of Service May 13, 2018 Assessment & Plan (1) Acute cholecystitis: Noted to have abdominal tenderness in ED. Afebrile. WBC was 14,820. Alk phos elevated. C-reactive protein elevated. Procalcitonin normal. CT demonstrated cholelithiasis and distended gallbladder. HIDA scan positive. Received IV piperacillin / tazobactam. General Surgery consulted. Laparoscopic cholecystectomy performed by Dr. Ruelas 05/11/18. POD # 2. Diet advanced and tolerated. (2) Acute alteration in mental status: Probable metabolic encephalopathy secondary to cholecystitis. Improved. (3) Hypertension: Continue bisoprolol and amlodipine. (4) COPD (chronic obstructive pulmonary disease): Pulmonary status stable. Incentive spirometry. (5) GERD (gastroesophageal reflux disease): Continue PPI. (6) CKD (chronic kidney disease), stage III: Serum creatinine 1.19. Follow. (7) Hypothyroidism: TSH normal. Continue levothyroxine. (8) Dementia: Confused last night, better today. Continue to monitor for delirium. Avoid meds with anticholingergic side effects. (9) DVT prophylaxis: SCD's. Ambulate. (10) Discharge planning issues: Family requesting referral to rehab. Family Medicine follow-up with Dr. Monson. Subjective Recheck for multiple problems. Pt seen in her room around 1100. Family visiting. Confused last night. Tolerated breakfast. No fever. No chest pain. No cough or SOB. No nausea, vomiting. Passing some flatus, no stool. Physical Exam 2 Vital Signs (Past 24 Hours): Last Vital Signs Temp 36.8 C 05/13/18 08:00 Pulse 72 05/13/18 08:00 Resp 20 05/13/18 08:00 BP 137/79 05/13/18 10:12 Pulse Ox 90 05/13/18 10:12 Constitutional: no acute distress Respiratory: no respiratory distress Auscultation: lungs clear to auscultation bilaterally Cardiovascular: Rate/Rhythm: regular rate and regular rhythm Vessels: no JVD Extremities: no calf tenderness and no edema Gastrointestinal (Abdomen): normal bowel sounds, soft, nontender, no hepatosplenomegaly Skin: no rashes, warm and dry Psychiatric: Orientation: alert (mild confusion) Results & Data Laboratory Results Laboratory Results - last 24 hr 05/13/18 05/13/18 05:46 05:50 WBC 9.17 RBC 4.02 L Hgb 10.9 L Hct 35.3 L MCV 87.8 MCH 27.1 MCHC 30.9 L RDW Std Deviation 54.2 H RDW Coeff of Stalin 16.7 H Plt Count 248 MPV 10.8 H Sodium 142 Potassium 3.8 Chloride 110 H Carbon Dioxide 27 Anion Gap 5.0 BUN 7 Creatinine 1.19 Est Cr Clr Drug Dosing 42.9 Est GFR ( Amer) 49.9 Est GFR (Non-Af Amer) 43.1 BUN/Creatinine Ratio 6.0 L Glucose 87 Calcium 8.7 _ (1) Hypertension Hypertension type: essential hypertension Qualified Code(s): I10 - Essential (primary) hypertension (2) COPD (chronic obstructive pulmonary disease) COPD type: unspecified COPD Chronic bronchitis type: Emphysema type: Qualified Code(s): J44.9 - Chronic obstructive pulmonary disease, unspecified (3) GERD (gastroesophageal reflux disease) Esophagitis presence: without esophagitis Qualified Code(s): K21.9 - Gastro- esophageal reflux disease without esophagitis (4) Hypothyroidism Hypothyroidism type: unspecified Qualified Code(s): E03.9 - Hypothyroidism, unspecified (5) Dementia Dementia type: vascular dementia Alzheimer's disease onset: Dementia behavioral disturbance: without behavioral disturbance Qualified Code(s): F01.50 - Vascular dementia without behavioral disturbance
[2018-05-13] MEDS: ACETAMINOPHEN 325 MG TAB PO PRN (13:00)
[2018-05-14] MEDS: LEVOTHYROXINE SODIUM 75 MCG TABLET PO SCH (05:52)
[2018-05-14] MEDS: FERROUS SULFATE 325 MG TAB PO SCH (09:25)
[2018-05-14] MEDS: PANTOprazole 40 MG TAB PO SCH (09:25)
[2018-05-14] MEDS: AMLODIPINE BESYLATE 5 MG TAB PO SCH (09:25)
[2018-05-14] MEDS: FLUOXETINE HCL 20 MG CAP PO SCH (09:26)
[2018-05-14] MEDS: RIVASTIGMINE TARTRATE 1.5 MG CAP PO SCH (09:26)
[2018-05-14] MEDS: MEMANTINE HCL 10 MG TAB PO SCH (09:26)
[2018-05-14] MEDS: MONTELUKAST SODIUM 10 MG TABLET PO SCH (09:26)
--- NOTE | 2018-05-14 10:46 | Hospitalist Progress Note ---
Date of Service May 14, 2018 Assessment & Plan (1) Acute cholecystitis: Noted to have abdominal tenderness in ED. WBC was 14,820. Alk phos was elevated. C-reactive protein elevated. Procalcitonin normal. CT demonstrated cholelithiasis and distended gallbladder. HIDA scan positive. Received IV piperacillin / tazobactam. General Surgery consulted. Laparoscopic cholecystectomy performed by Dr. Ruelas 05/11/18. POD # 3. Diet advanced and tolerated. (2) Acute alteration in mental status: Probable metabolic encephalopathy secondary to cholecystitis. Resolved. (3) Hypertension: Continue bisoprolol and amlodipine. (4) COPD (chronic obstructive pulmonary disease): Pulmonary status stable. Incentive spirometry. (5) GERD (gastroesophageal reflux disease): Continue PPI. (6) CKD (chronic kidney disease), stage III: Serum creatinine 1.19 on 05/13. Follow. (7) Hypothyroidism: TSH normal. Continue levothyroxine. (8) Dementia: Confused at times. Continue to monitor for delirium. Avoid meds with anticholinergic side effects. (9) DVT prophylaxis: SCD's ordered. Ambulating. (10) Discharge planning issues: Family requesting referral to rehab. Arrangements being made for transfer to [facility] for inpatient rehab. Disposition after rehab to be determined- may need long-term usp care or assisted living. Family Medicine follow-up with Dr. Monson. Subjective Recheck for multiple problems. Pt seen in her room around 1025. Spoke with family and nursing staff. Doing well, no new problems or concerns. Needs assistance with ambulation. Tolerating diet. No fever. No chest pain. No cough or SOB. No nausea, vomiting, diarrhea. Voiding without difficulty. Physical Exam 2 Vital Signs (Past 24 Hours): Last Vital Signs Temp 36.8 C 05/14/18 07:15 Pulse 82 05/14/18 07:15 Resp 16 05/14/18 07:15 BP 156/79 H 05/14/18 07:15 Pulse Ox 92 05/14/18 07:15 Constitutional: no acute distress Respiratory: no respiratory distress Auscultation: lungs clear to auscultation bilaterally Cardiovascular: Rate/Rhythm: regular rate and regular rhythm Vessels: no JVD Extremities: no calf tenderness and no edema Gastrointestinal (Abdomen): normal bowel sounds, soft, nontender, no hepatosplenomegaly Skin: no rashes, warm and dry Psychiatric: Orientation: alert (mild confusion) _ (1) Hypertension Hypertension type: essential hypertension Qualified Code(s): I10 - Essential (primary) hypertension (2) COPD (chronic obstructive pulmonary disease) COPD type: unspecified COPD Chronic bronchitis type: Emphysema type: Qualified Code(s): J44.9 - Chronic obstructive pulmonary disease, unspecified (3) GERD (gastroesophageal reflux disease) Esophagitis presence: without esophagitis Qualified Code(s): K21.9 - Gastro- esophageal reflux disease without esophagitis (4) Hypothyroidism Hypothyroidism type: unspecified Qualified Code(s): E03.9 - Hypothyroidism, unspecified (5) Dementia Dementia type: vascular dementia Alzheimer's disease onset: Dementia behavioral disturbance: without behavioral disturbance Qualified Code(s): F01.50 - Vascular dementia without behavioral disturbance
--- NOTE | 2018-05-14 10:58 | Discharge Summary ---
Date of Service Date of admission: 05/09/18 Date of discharge: 05/14/18 Admission HPI Per Admitting Provider This is a 82-year-old female with significant past medical history of dementia, moderate COPD, hypertension, hypothyroidism, CKD stage III, anxiety who presents to [facility] secondary to fall times 1 day. Daughters are at bedside. History mostly obtained from daughters secondary to patient's underlying dementia. Apparently patient lives at home alone with caregiver coming twice daily and family stopping in. When caregiver came to check on patient today she was sitting on floor at bedside. Patient does not recall falling and currently denies any pain. Unknown if syncopal event versus mechanical fall. Patient does elicit she has chronic right shoulder pain secondary to bursitis. Daughter does elicit increased weakness over the past 3 weeks. Pt with known dementia but family feels today her cognition is worse, "saying things she never has said in the past." Patient ambulates with walker. Denies recent illness or URI. She denies fever, chills, sweats, lightheadedness , dizziness, chest pain, shortness of breath at rest, nausea, vomiting, diarrhea , abdominal pain, dysuria, increased urgency or frequency with urination, hematuria, hemoptysis, hematochezia, melena. ROS slightly unreliable given patient's underlying cognitive status. Per family patient eats well when food is presented to her. Admission Exam Per Admitting Provider Gen: Morbidly obese, elderly,F, NAD, lying in bed, pleasant, conversing easily but pleasantly confused Head: Normocephalic, Atraumatic Eyes: Sclera normal, no conjunctival injection, PERRLA, EOMI ENT: Gross hearing intact, normal pharynx, mucous membranes dry Neck: supple, no adenopathy, No JVD, no bruit, Resp: Clear to auscultation b/l, no wheeze, rales, rhonchi. Normal insp/exp effort, no accessory muscle use CV: Regular rate, regular rhythm, no murmur, rub, gallop, or ectopy Abd: +BS x 4, soft, nontender, distended secondary to obesity, negative mcgarry sign, no rebound, guarding Musculoskeletal: moves extremities active rom x 3, decrease ROM to RUE/shoulder due to pain, good four h club agent strength Extremities: No edema bilaterally, pedal pulse +1 equal Skin: warm, moist, no rash, negative turgor, cap refill < 2sec Neuro: Alert and oriented x 3, speech normal, good mood/affect, cran nerve 2-12 intact grossly : deferred Principal Diagnosis acute cholecystitis with cholelithiasis altered mental status- metabolic encephalopathy / delirium secondary to cholecystitis Discharge Data Allergies Allergy/AdvReac Type Severity Reaction Status Date / Time latex Allergy Mild RASH Verified 04/22/17 11:53 donepezil Allergy Unknown NIGHTMARES Verified 04/22/17 11:53 NSAIDS (Non-Steroidal Allergy Unknown NOT TO Verified 01/20/18 16:06 Anti-Inflamma TAKE DUE TO KIDNEY CHANGES Consultations 05/09/18 21:12 ED Decision to Admit Stat 05/10/18 02:34 Consult Case Management - Discharge Planning Routine Consult General Surgery Routine Consult Orthopedic Surgery Routine Procedures Performed Operation Date: 05/11/18 09:25 Actual Procedures p Laparoscopic Cholecystectomy(Not Applicable) - Gustavo Ruelas, DO, FACS Ordered Studies 05/09/18 18:08 CT cervical spine wo con Stat CT head/brain wo con Stat 05/09/18 20:12 CT abd pelvis IV con only Stat Hospital Course (1) Acute cholecystitis: Presented to ED with generalized weakness and a fall. Noted to have abdominal tenderness in ED. WBC was 14,820. Alk phos was elevated. C-reactive protein elevated. Procalcitonin normal. CT demonstrated cholelithiasis and distended gallbladder. HIDA scan positive. Received IV piperacillin / tazobactam. General Surgery consulted. Laparoscopic cholecystectomy performed by Dr. Ruelas 05/11/18. POD # 3. Diet advanced and tolerated. (2) Acute alteration in mental status: Probable metabolic encephalopathy secondary to cholecystitis. Resolved. (3) Hypertension: Continue bisoprolol and amlodipine. (4) COPD (chronic obstructive pulmonary disease): Pulmonary status stable. Incentive spirometry. (5) GERD (gastroesophageal reflux disease): Continue PPI. (6) CKD (chronic kidney disease), stage III: Serum creatinine 1.19 on 05/13. Follow. (7) Hypothyroidism: TSH normal. Continue levothyroxine. (8) Dementia: Confused at times. Continue to monitor for delirium. Patient has been taking clonazepam PRN for anxiety. Best to use it sparingly; consider tapering dose and eventual discontinuation. Avoid meds with anticholinergic side effects. (9) DVT prophylaxis: SCD's ordered. Ambulating. (10) Discharge planning issues: Family requesting referral to rehab. Arrangements being made for transfer to [facility] for inpatient rehab. Disposition after rehab to be determined- may need long-term long-term care or assisted living. Family Medicine follow-up with Dr. Monson. Total Time Total Time Spent Total Time Spent (In Minutes): 45 Discharge Plan Discharge Items Patient Disposition: Transfer Inpatient Rehab Fac Reason For Visit: weakness, fall Discharge Diagnosis: acute cholecystitis Discharge Goals: Improve disease control and Improve function Activity: Per 'Additional Instructions' section Activity Comment: As tolerated with walker and assistance. Lifting: No more than 10 pounds Bathing: No limitations Non-emergency contact: Primary Care Provider, Hospitalist and Surgeon Call non-emergency contact if: you have any medication questions and your symptoms worsen Follow-up/Referrals: Gustavo Ruelas DO, FACS [Physician] - (Call to schedule an appt in 2 weeks) Ivan Monson MD [Primary Care Provider] - (Please call office for appointment at time of discharge from [facility].) Diet: Heart Healthy Addtl Provider Instructions: FALL PRECAUTIONS DELIRIUM PRECAUTIONS Deep breathing. Incentive spirometry q 2 hours while awake x 1 week. Thank you for receiving this patient in transfer. Please call if you have any questions. Joshua Burris Prescriptions: New acetaminophen 500 mg capsule 1,000 mg PO Q8H PRN (Reason: pain) Qty: 60 RF: 0 Continue clonazepam 0.5 mg tablet 0.5 mg PO BID PRN (Reason: Anxiety/Agitation) RF: 0 amlodipine 5 mg tablet 2.5 mg PO DAILY RF: 0 bisoprolol fumarate 10 mg tablet 10 mg PO QAM RF: 0 levothyroxine 75 mcg tablet 75 mcg PO QAM RF: 0 omeprazole 20 mg capsule,delayed release(DR/EC) 20 mg PO QAM RF: 0 montelukast 10 mg tablet 10 mg PO QAM RF: 0 fluoxetine 20 mg capsule 60 mg PO QAM RF: 0 calcitriol 0.25 mcg capsule 0.25 mcg PO DAILY RF: 0 rivastigmine tartrate 3 mg capsule 3 mg PO BID RF: 0 rosuvastatin 5 mg tablet 5 mg PO QPM RF: 0 memantine 10 mg tablet 10 mg PO BID RF: 0 calcium carbonate [Calcium 600] 600 mg calcium (1,500 mg) Tablet 600 mg PO DAILY RF: 0 ferrous sulfate 325 mg (65 mg iron) Tablet 325 mg PO BID RF: 0 cholecalciferol (vitamin D3) [Vitamin D3] 5,000 unit Tablet 5,000 units PO DAILY RF: 0 albuterol sulfate [Proventil HFA] 90 mcg/actuation Hfa Aerosol Inhaler 2 puff INHALATION Q6H PRN (Reason: Shortness Of Breath) RF: 0 magnesium chloride [Slow-Mag] 71.5 mg Tablet,Delayed Release (Dr/Ec) 71.5 mg PO DAILY RF: 0 Stand-Alone Forms: [facility] Admission Data Admit Date/Time: 05/10/18 17:47 Attending Provider: Joshua Burris Admit Provider: Emanuel Rider Primary Care Provider: Ivan Monson Other Providers: Joon Gonzalez ; Gustavo Ruelas ; Emanuel Rider Service: Surgical Services
--- NOTE | 2018-05-14 14:06 | Surgery Progress Note ---
Date of Service May 14, 2018 Assessment & Plan (1) Status post laparoscopic cholecystectomy: Status post lap scopic cholecystectomy, doing well. Patient scheduled for discharge to rehab facility today. Okay to DC from surgery perspective Follow-up in surgical clinics in 2-3 weeks Return precautions given Present on Admission?: Yes Subjective 82-year-old female status post laparoscopic c cholecystectomy for acute cholecystitis, POD #3. Doing well, denies abdominal pain. Tolerating regular diet. Scheduled for placement today. Physical Exam 2 Vital Signs (Past 24 Hours): Last Vital Signs Temp 36.8 C 05/14/18 13:36 Pulse 74 05/14/18 13:36 Resp 16 05/14/18 13:36 BP 156/79 H 05/14/18 13:36 Pulse Ox 92 05/14/18 13:36 Constitutional: WD/WN, vitals as above Gastrointestinal (Abdomen): Incisions healing well, some ecchymosis to subxiphoid incision. No evidence of infection or hernias. Abdomen soft, nontender, nondistended.
== END 2018-05-14 16:55 | DRG 417 ==
LOC: 2W 17:53 → ED 17:53 → 2W 05-10 02:14 → 3N 05-11 22:30